=== PATIENT | male | born 1965 | race Caucasian/White ===

== ENCOUNTER → 2024-08-19 11:29 | Outpatient (REF) | payer OTHER, SELFPAY | LOC: PAVMRI 11:29 | PROVIDERS: ATTENDING PHYSICIAN Physician Assistant; FAMILY PHYSICIAN Family Medicine | DX: H90.41 Sensorineural hearing loss, unilateral, right ear, with unrestricted hearing on the contralateral side (principal) | CPT/HCPCS: 70553; A9575 ==

== ENCOUNTER 2025-09-05 22:18 | Inpatient (IN) | payer OTHER, SELFPAY ==
[2025-09-05] VITALS (13 sets, daily range): BP systolic 120–173; BP diastolic 63–118; BMI 35.0
--- NOTE | 2025-09-05 20:02 | ED.GENMED ---
History of Present Illness
General
Chief Complaint: Breathing Problem
Source: patient
Exam Limitations: none
Time Seen by Provider: 09/05/25 19:53
History of Present Illness
History of Present Illness:
See MDM
Past History
Past History
ED Past Medical History: HTN
ED Past Surgical History: Other (Chest tube)
Social History
Tobacco: Former smoker
Alcohol: None
Phy Exam
Physical Exam
Physical Exam:
See MDM
Scores
Heart Failure Risk
Heart Failure Risk Score: Not Applicable
Sepsis
Sepsis Screening
Sepsis Assessment: Sepsis
Sepsis Screening: Worsening O2 Saturation
Sepsis Screen
Sepsis Screen: Sepsis
Date: 09/05/25
Time: 21:25
Course
Orders/Labs/Results
Orders:
Orders
09/05/25 19:55
Complete Blood Count/With Diff Urgent
Comprehensive Metabolic Panel Urgent
NT-proBNP Urgent
Comment: ADDON
Troponin I Urgent
09/05/25 20:00
Add On- LAB Urgent
Tests Added?: BNP
CT Chest PE Study Urgent
Comment:
Reason For Exam: SOB, hypoxic, recent travel
Albuterol Sulfate [Ventolin Nebules] 7.5 mg INH R NOW STA
Dexamethasone Sod Phosphate [Decadron] 10 mg IV NOW STA
Ipratropium Nebs [Atrovent Nebules] 1 mg INH R NOW STA
CR Chest Portable - 1 View Urgent
Comment:
Reason For Exam: SOB, hypoxic
Reason Study Needs to be Portable: Patient Unstable
09/05/25 20:16
Piperacillin/Tazo 3.375 Gram [Zosyn] 3.375 gram in 50 ml IV NOW
09/05/25 20:40
Vancomycin [Vancocin] 2,000 mg 0.9% Sodium Chloride 500 ml [Nss] 500 ml IV NOW
09/05/25 20:45
Lactic Acid Q4H
Comment: CANCEL 2nd LACTIC ACID IF 1st LACTIC ACID IS LESS THAN 2
PTT Urgent
Prothrombin Time Urgent
Comment: PTT
Blood Culture Q30M
GRUPO Source: Blood/Venous
Specimen Description:
Blood Culture Q30M
GRUPO Source: Blood/Venous
Specimen Description:
09/05/25 21:02
Consult Interventional Radiology [IRAD CONSULT] Routine
Consulting Provider: Mika Chaves
Was physician already notified: Yes
Procedure being ordered, including laterality if applicable: Thoracentessis, R side
Acknowledgement that appropriate orders are entered: Yes
Body Fluid Cell Count Routine
What is the Body Fluid: R pleural effusion
Fluid Culture with Gram Stain Routine
GRUPO Source: Thoracentesis Fluid
Specimen Description:
09/05/25 21:24
Heparin 8,800 units IV NOW STA
Pharmacy Request to Place See Dose Instructions PO NOW STA
Discontinue all Active Warfarin orders?: Yes
09/05/25 21:[address] Non Medication Order As Directed
Physician Order: PTT 6 hours after initial start of Heparin infusion
09/05/25 21:30
Heparin INFUSION titrate rate - CONTINUOUS Heparin 27641 Units/250 ml 25,000 units in 250 ml IV PER PROTOCOL
Weight to be used for heparin protocol in kilograms (kg):: 110.2
Protocol:: DVT/PE
PTT Goal Range to be used:: PTT 73 to 111 seconds
Order type:: Initial
INITIAL Infusion Dose (UNITS/KG/hr) & then follow protocol:: 18 units/kg/hr
Infusion Dose in UNITS/hr & then follow protocol (UNITS/hr):: 2,000
INFUSION RATE in mL/hr & then follow protocol (mL/hr):: 20
For DVT/PE algorithm, re-bolus for low PTT?: Yes
PTT less than or equal to 64 seconds:: Re-bolus 80 units/kg (max 10,000units). Increase by 400 units/hr
(+ 4mL/hr)
PTT 64.1 to 72.9 seconds:: Re-bolus 40 units/kg (max 5,000 units). Increase by 200 units/hr
(+ 2mL/hr)
PTT 73 to 111 seconds:: Target Range. No change in rate.
PTT 111.1 to 130.9 seconds:: Decrease rate by 200 units/hr (- 2 mL/hr)
PTT 131 to 199.9 seconds:: HOLD for 1 hr. Then decrease by 300 units/hr (- 3mL/hr)
PTT greater than or equal to 200 seconds:: HOLD for 2 hrs & Notify Provider. Then decrease by 400 units/hr
(- 4mL/hr)
Lab follow-up:: Each change, PTT q6h until 2 consecutive are therapeutic. Then
PTT daily.
09/05/25 22:[address] See Dose Instructions IV DIRECTED
09/06/25 00:30
Lactic Acid Q4H
Comment: CANCEL 2nd LACTIC ACID IF 1st LACTIC ACID IS LESS THAN 2
Abnormal Lab Results
09/05/25 09/05/25
19:55 20:45
WBC 31.3 H 10^3/uL
(4.8-10.8)
Plt Count 481 H 10^3/uL
(130-400)
Abs Immat Gran (auto) 1.2 H 10^3/uL
(0-0.05)
Absolute Neuts (auto) 25.0 H 10^3/uL
(1.4-6.5)
Absolute Monos (auto) 2.8 H 10^3/uL
(0.1-0.6)
Immature Gran % 3.8 H %
(0-0.5)
Neutrophils % 79.8 H %
(42.2-75.2)
Lymphocytes % 7.4 L %
(20.5-51.1)
PT 14.8 H Sec
(11.4-14.6)
Sodium 133 L mmol/L
(135-145)
BUN 45 H mg/dl
(9-20)
Glucose 154 H mg/dl
(70-99)
Alkaline Phosphatase 151 H U/L
(38-126)
Albumin 3.4 L g/dl
(3.5-5.0)
09/05/25 19:55
09/05/25 19:55
Vital Signs
Initial and Last Documented VS:
Initial Vital Signs
Temp Pulse Resp BP Pulse Ox
98.2 F 130 30 155/83 90
09/05/25 19:46 09/05/25 19:46 09/05/25 19:46 09/05/25 19:46 09/05/25 19:46
Last Documented Vital Signs
Temp Pulse Resp BP Pulse Ox
98.2 F 130 23 129/84 93
09/05/25 19:46 09/05/25 21:00 09/05/25 21:00 09/05/25 21:00 09/05/25 21:00
MDM/Problems Addressed
Differential Diagnosis Includes:
Note:
CHIEF COMPLAINT(S)
Shortness of breath.
HISTORY OF PRESENT ILLNESS
The patient is a 60-year-old male with a reported history of pneumonia and prior chest tube placement in 2019, which required a 15-day hospitalization. He was recently treated for bronchitis a couple of weeks ago. The patient flew to [place] and began
experiencing shortness of breath during the flight. Initially, it was manageable, but it progressively worsened with physical activity, such as walking and climbing stairs during the trip. The patient reports audible gurgling sounds in his chest and
increasing difficulty breathing, leading to the use of a wheelchair upon return. There is a prior history of smoking. The patient notes no history of COPD, asthma, blood clots, or heart failure. Recent antibiotic treatment included azithromycin.
The patients oxygen levels are low, necessitating supplemental oxygen. Patient was brought back immediately on 5 L nasal cannula
PAST MEDICAL AND SURGICAL HISTORY
- History of pneumonia.
- Chest tube placement in 2019 for fluid drainage.
SOCIAL DETERMINANTS AFFECTING HEALTH
- Long history of smoking.
PHYSICAL EXAM
General: Mildly uncomfortable with conversational dyspnea
Skin: Warm, dry.
Head: Normocephalic, atraumatic
Neck: Appears supple, trachea midline.
Eyes, Ears, Nose, Mouth, and Throat: Moist mucous membranes
Cardiovascular: No signs of cyanosis
Respiratory: Tachypnea, expiratory wheezes at bases
Abdomen: Non-distended
Musculoskeletal: No deformities
Neurological: No focal neurological deficit observed.
Psychiatric: Cooperative, appropriate mood and affect.
PLAN
- Administer Decadron (dexamethasone) as an anti-inflammatory.
- Initiate breathing treatments.
- Perform a chest x-ray followed by a CT scan to assess lung condition and rule out acute issues such as a pneumothorax or pulmonary embolism.
- Continuously monitor the patient with telemetry.
- Admission for further management due to the inability to maintain adequate oxygen saturation levels and the complexity of the condition.
DIFFERENTIAL DIAGNOSIS
The Differential Diagnosis includes, in no particular order and is not limited to:
- Pneumonia
- Pulmonary embolism
- Bronchitis exacerbation
- Chronic obstructive pulmonary disease (COPD)
- Heart failure
- Pleural effusion
- Pneumothorax
- Asthma
- Interstitial lung disease
- Lung cancer
SUMMARY OF ENCOUNTER
The patient was seen for worsening shortness of breath following a flight and travel to [place]. He has a history of pneumonia and required a chest tube in the past. The patients symptoms have progressively worsened, with audible respiratory sounds
suggesting possible airway obstruction or lung complication. Management included starting corticosteroids and respiratory treatments to reduce inflammation and aid breathing, along with imaging to determine any serious underlying lung issues.
DISPOSITION
Admit for further evaluation and treatment due to sustained low oxygen saturation.
MEDICATION RECONCILIATION
- Administered Dexamethasone (Decadron) for inflammation.
MEDICAL DECISION MAKING
-Complexity of Data Reviewed: Chronic conditions affecting care: History of pneumonia, prior chest tube placement.
-Data:
Category 1
- Chest x-ray ordered and pending interpretation.
Category 2
- Patients spouse and EMS information reviewed on patient condition and history.
-Risk:
Prescription medication was administered. Care significantly affected by Social Determinants of Health: Long history of smoking.
CARE-UPDATE
09/05/25 - 20:17
Chest x-ray indicates fluid and right-sided pneumonia. Patient will start treatment with vancomycin and Zosyn as he was previously on azithromycin. White blood cell count is elevated at 31,000. Plan to obtain blood cultures and lactate levels.
SUMMARY OF ENCOUNTER
The patient presented with worsening shortness of breath following a recent trip. He has a history of pneumonia and required hospital care in the past. During the emergency department visit, the CT scan showed no obvious pulmonary embolism but
indicated loculations and complex fluid in the right lung. Immediate treatment included the initiation of broad-spectrum antibiotics. Due to the findings and the patients hypoxia, the decision was made to admit the patient for further evaluation,
particularly for a large empyema and fluid collection.
DISPOSITION
Admit.
ASSESSMENT
Concern for a large empyema and complex fluid collection in the right lung contributing to hypoxia.
MANAGEMENT OF THE PATIENTS CARE WAS DISCUSSED WITH
Interventional radiology, who will evaluate the patient for thoracentesis the following morning.
INDEPENDENT REVIEW OF LABS AND INTERPRETATION OF TESTS
My independent interpretation of the CT scan reveals no obvious pulmonary embolism but shows loculated complex fluid in the right lung.
MEDICATION RECONCILIATION
Initiation of broad-spectrum antibiotics.
MEDICAL DECISION MAKING
-Complexity of Data Reviewed: Chronic conditions affecting care include a history of pneumonia and prior chest tube placement. The differential diagnosis includes pneumonia, pulmonary embolism, bronchitis exacerbation, chronic obstructive pulmonary
disease (COPD), heart failure, pleural effusion, pneumothorax, asthma, interstitial lung disease, and lung cancer.
-Data:
Category 1: CT scan independently reviewed.
Category 3: Discussion of management with interventional radiology regarding the planned thoracentesis.
-Risk: Prescription medication was prescribed. The patient admitted for further evaluation and management due to respiratory complications and complexity of condition. Care significantly affected by Social Determinants of Health due to the long
history of smoking.
DIAGNOSIS
Empyema, J86.9.
*Pulse Oximetry
SaO2: 91
Nasal Cannula flow liters per minute: 6
Oxygen Mode of Delivery: Room air
Patient hypoxic: yes
*Critical Care Note
Total Time (30-74mins, 75-104mins- exclusive of procedures): 33 min
comment:
The high probability of a clinically significant, sudden or life threatening deterioration of the cardiopulmonary system(s) required my full and direct attention, intervention and personal management. The aggregate critical care time was 33 minutes.
This time is in addition to time spent performing reported procedures but includes the following:
[x] Data Review and interpretation
[x] Patient assessment and monitoring of vital signs
[x] Documentation
[x] Medication orders and management
Update Note
Update Note:
9:25 PM admitting hospitalist at bedside. This time, official CT report is back which is highly suspicious of pulmonary embolism. Patient placed on heparin drip
ED Attending Note
-
Portions of this chart may have been created with voice recognition software.� Occasional wrong word or��sound alike� substitutions may have occurred due to the inherent limitations of voice recognition software.
Discharge Plan
Departure
Patient Disposition: Admit
Date of Disposition: 09/05/25
Time of Disposition: 21:01
Admit to: IMU
Presentation/result/management discussed w/ accepting MD/DO: Hospitalist
Discharge Problem:
Empyema, Hypoxia, Pulmonary embolism
Prescriptions:
No Action
cetirizine 10 MG tablet
10 mg PO BID
lisinopril 10 MG tablet
10 mg PO DAILY
sertraline 25 MG tablet
25 mg PO DAILY
fluticasone propionate 1 SPRAY spray,suspension
1 spray intranasal BID
pantoprazole 40 MG tablet,delayed release (DR/EC)
40 mg PO BID Qty: 60 0RF
atorvastatin 20 mg Tablet
20 mg PO DAILY
Referrals:
Matilde Rivera DO [Family Provider, Family Practice]
Interventions
Interventions:
*Risk Screen - Suicide Last Done: 09/05/25 19:55
*General Assessment Last Done: 09/05/25 19:46
*Neglect/Abuse Screening Last Done: 09/05/25 19:55
*ED COVID-19 Vaccine History Last Done: 09/05/25 19:53
*ED Influenza Vaccine History Last Done: 09/05/25 19:53
[facility] Fall Risk Assessment Tool Last Done: 09/05/25 20:11
ED- Cardiac Assessment Last Done: 09/05/25 19:57
ED- Pulmonary Assessment Last Done: 09/05/25 19:57
Discharge Date and Time
Print Language: INDONESIAN
[2025-09-05] MEDS: VENTOLIN NEBULES 7.5 MG INH (20:03)
[2025-09-05] MEDS: ATROVENT NEBULES 1 MG INH (20:03)
[2025-09-05] MEDS: DECADRON 10 MG IV (20:04)
[2025-09-05 20:10] LABS: Hematocrit 41.1 % (39.0-52.0); Hemoglobin 14.0 g/dL (13.0-18.0); Mean Corp Hgb Conc. 34.1 g/dL (33.0-37.0); Mean Corpuscular Volume 80.1 fL (80.0-94.0); Red Cell Dist. Width 14.5 % (11.5-14.5)
[2025-09-05 20:22] LABS: ALT (SGPT) 31 U/L (0-50); AST (SGOT) 36 U/L (17-59); Albumin 3.4 g/dl (3.5-5.0); Alkaline Phosphatase 151 U/L (38-126); Blood Urea Nitrogen 45 mg/dl (9-20); Calcium 8.6 mg/dl (8.4-10.2); Carbon Dioxide 23 mmol/L (22-30); Chloride 101 mmol/L (98-107); Glucose 154 mg/dl (70-99); Potassium 4.4 mmol/L (3.5-5.1); Sodium 133 mmol/L (135-145); Total Protein 6.6 g/dl (6.3-8.2); eGFR > 60.00
[2025-09-05 20:28] LABS: Nucleated Red Blood Cells % 0 % (-); Platelet Count 481 10^3/uL (130-400); Troponin I < 0.012 ng/ml
[2025-09-05] MEDS: VANCOCIN 540 MG IV (20:50)
[2025-09-05] MEDS: ZOSYN 50 IV (20:52)
[2025-09-05 21:01] LABS: INR 1.15; PT 14.8 Sec (11.4-14.6)
[2025-09-05 21:02] LABS: APTT 30.8 Sec (23.4-35.0)
--- NOTE | 2025-09-05 21:04 | HPS.HSE ---
Addendum entered and electronically signed by Yosef Marinelli MD 09/05/25 21:52:
60 male history of empyema requiring tPA dornase chest 2 secondary to Streptococcus mitis, GERD, peptic ulcer disease, hypertension, hyperlipidemia who presented for worsening ongoing shortness of breath over the last 5 days. Initially started on a
plane journey to [place]. Progressively got worse called his outpatient or assistant Dr. Niño recommended to get on the first flight back and present directly to the hospital. He admits to right sided chest discomfort shortness of breath,
shortness of breath with exertion so bad that he required wheelchair use not relieved by anything. Has a cough unable to clear mucus though. Had chills diaphoretic without documented fever.
Empyema history with Streptococcus mitis. Required 15-day hospitalization in 2019. At that time was discharged home on levofloxacin
Acute hypoxemic respiratory failure secondary to likely right lobe empyema along with left lung pulmonary embolism
IV antibiotics with Vanco (mrsa coverage) and Zosyn (anaerobic coverage)
Infectious disease consult
Thoracentesis
IR
Fluid analysis with culture and cytology
IV heparin gtt
2d echo
Analgesics - low dose to prevent resp drive impairment
Mucolytics
Ipratrop nebs, will avoid albuterol nebs for now due to tachycardia
Acute PE - Difficult to tell if this is Provoked vs Unprovoked
Hep gtt + protocol
2d echo
Pulmonary consult
Tachycardia
Related to acute hypoxia and Acute PE
Monitor on tele
HTN
Will hold as normotensive
Likely has a preload dependent due to PE and Right lung compressive changes from Empyema
PUD hx while having TPA Dornase instilled in chest tube, developed acute hemorrhagic shock seconday to acute blood loss anemia
Start BID IV PPI
As started on hep gtt and may need TPA dornase if determined to be empyemia/thick nondraining fluid.
Original Note:
Family Physician
-
Family Physician: Matilde Rivera
Chief Complaint
-
sob
History of Present Illness
60-year-old male with a reported history of pneumonia, GERD,BPH, HTN, HLD and prior chest tube placement in 2019 presented to us with sob which progressively got worse with activity for 4 days. The patient flew to [place] and began experiencing
shortness of breath during the flight. Initially, it was manageable, but it progressively worsened with physical activity, such as walking and climbing stairs during the trip. patient was even having trouble speaking due to sob. patient complained
of cough with thick mucous, but at times he can't bring it up due to the pain. he complains of right sided chest pain. The patient reports audible gurgling sounds in his chest. denied fever, chills. he was diaphoretic. denied MENA, dizzy or
syncope.denied chest pain. denied abdominal pain,n,v,d. denied dysuria or hematuria.
CT concerning for Moderate to large right pleural effusion with multiple loculations. Given the patient's clinical history, findings raise concern for empyema.Confluent areas of parenchymal opacity within the right lung, most suggestive of
compressive atelectasis given the morphologic appearance. However, underlying pneumonia is also possible.Findings considered highly suspicious for pulmonary embolism involving the left lower lobe pulmonary artery, as described above. Most proximal
branching point is the left lower lobe lobar pulmonary artery.No convincing evidence for right-sided pulmonary embolism.No significant left pleural effusion.Fatty infiltration the liver.
Patient initiated on heparin drip, Vanco Zosyn . IR consulted for thoracentesis in the morning
Medical History
Past Medical History
Past Medical History: Reports Other
Additional Past Medical History:
Pneumonia, emphyema, anxiety, asthma, HTN, Iyer;s esophagus, hld,
Past Surgical History: Reports Other
Additional Past Surgical History:
esophagus ablation
Social History
Tobacco: Former Smoker
Alcohol: Occasional
Drug: None
Personal:
Living: With Family
Family History
Family History: Not pertinent
Allergies / Home Medications
Allergies reflects when Allergies were last updated in [facility].
Home Medications with original date entered in [facility]
Allergy/Medication List:
Allergies
Allergy/AdvReac Type Severity Reaction Status Date / Time
No Known Allergies Allergy Verified 09/05/25 19:46
Home Medications
cetirizine 10 mg tablet 10 mg PO BID Allergies 07/31/20
fluticasone propionate 50 mcg/actuation nasal spray,suspension 1 spray intranasal BID Allergies 07/31/20
lisinopril 10 mg tablet 10 mg PO DAILY Blood pressure 07/31/20
sertraline 25 mg tablet 25 mg PO DAILY Depression 07/31/20
pantoprazole 40 mg tablet,delayed release 40 mg PO BID #60 tabs 08/15/20
atorvastatin 20 mg tablet 20 mg PO DAILY 06/22/23
Review of Systems
-
Constitutional: Reports No Symptoms
EENT: Reports No Symptoms
Respiratory: Reports Cough and Trouble Breathing
Cardiac: Reports Chest Pain and Diaphoresis
Abdomen/GI: Reports No Symptoms
: Reports No Symptoms
Musculoskeletal: Reports No Symptoms
Skin: Reports No Symptoms
Neurological: Reports No Symptoms
Endocrine: Reports No Symptoms
Hematologic/Lymphatic: Reports No Symptoms
Psych: Reports No Symptoms
Physical Exam
Vital Signs
Vital Signs
Temp Pulse Resp BP Pulse Ox
98.2 F 131 19 155/118 91
09/05/25 19:46 09/05/25 20:00 09/05/25 20:00 09/05/25 20:00 09/05/25 20:04
Physical Exam
General: Well Developed, Well Nourished and No Apparent Distress
HEENT: NormoCephalic, Moist mucous membranes and Atraumatic
Respiratory: Clear
Cardiac: S1/S2 and Regular Rhythm; No Murmur or Rub
GI: Soft, Non Tender, Non Distended and Normal Bowel Sounds; No Organomegaly
Rectal: Deferred by Provider
Musculoskeletal: No Clubbing, No Cyanosis and No Edema
Skin: No Rash
Neuro: AO x 3 and Nonfocal/grossly intact
Psych: Calm
Laboratory Results
-
09/05/25 19:55
09/05/25 19:55
Laboratory Results
PT Cancelled 09/05/25 19:55
INR Cancelled 09/05/25 19:55
APTT Cancelled 09/05/25 19:55
Lactic Acid 1.9 mmol/L (0.7-2.0) 09/05/25 20:45
Total Bilirubin 0.8 mg/dl (0.2-1.3) 09/05/25 19:55
AST 36 U/L (17-59) 09/05/25 19:55
ALT 31 U/L (0-50) 09/05/25 19:55
Alkaline Phosphatase 151 U/L (38-126) H 09/05/25 19:55
Troponin I < 0.012 ng/ml 09/05/25 19:55
Data Reviewed
-
Diagnostic Radiology: Report Reviewed by me
CT Scan: Report Reviewed by me
Lab Data: Labs Reviewed by me
Impression/Plan
-
#acute hypoxic respiratory failure concern for large empyema and complex fluid collection in the right lung/large pleural effusion
-IR consulted for thoracentesis
-continue supplemental oxygen to keep sat>95, wean as tolerated
-nebs prn for sob/wheezing
-vanco and Zosyn continued
- ID and pulmonary consulted
# Pulmonary embolism
- IV heparin
-ECHO, duplex
# GERD
#hxt of PUD
- IV PPI continue
#Essential hypertension, BP stable
#Anxiety
Continue sertraline
# BPH
-Flomax continue
#HLD
-statin
#heparin
#Code status: The patient is a full code.
[2025-09-05] MEDS: HEPARIN 8800 UNITS IV (21:46)
[2025-09-05] MEDS: HEPARIN 25000 UNITS/250 ML IV (21:46)
[2025-09-05 23:05] LABS: Glucose - Point of Care 198 mg/dl (70-99)
[2025-09-05] MEDS: PROTONIX IV 40 MG IV (23:09)
[2025-09-05] MEDS: NSS (PRESERVATIVE FREE) 10 ML IV (23:09)
[2025-09-05] MEDS: MUCINEX 1200 MG PO (23:09)
[2025-09-05] MEDS: DILAUDID 0.5 MG IV (23:16)
--- NOTE | 2025-09-05 23:44 | PTCARENOTE ---
Received pt from PROCESS ENGINEERING MANAGER. Pt pulled over from the stretcher to our bed. Pt is AAOx3, R side [place]IE. Sinus tach on the monitor. Pt on 5L NC O2 sat 92%, lungs coarse, slight wheeze, breathing treatment provided in ED, tachypneic/BACA, non-productive occ
cough. Urinal at bedside. Pt c/o 5/10 right sided lung/back/side pain, ICU BIOLOGY LABORATORY ASSISTANT notified Dilaudid given (see MAR). Pt states Dilaudid helped with his pain and is able to take deep breaths. Heparin gtt at 2000 units (see worklist). CHG bath provided.
Call bhat in reach. Safe environment maintained.
[2025-09-06] VITALS (31 sets, daily range): BP systolic 91–164; BP diastolic 81–111; BMI 35.1
--- NOTE | 2025-09-06 00:56 | PHA.VAN.IN ---
Addendum entered and electronically signed by Krystin Soto RPH 09/06/25 12:07:
Continue present dosing - BUN elevated but trending down
Original Note:
Assessment
- Assessment
Renal Function: Appears similar to baseline
Concomitant Antimicrobials: Piperacillin/Tazobactam
- Previous Dosing Experience
Previous Regimen: 1750 mg Q12H
Date of Regimen: 08/08/2020
Provided Trough of: 11.0
Patient's SCR is: Elevated compared to previous dosing experience
AUC Dosing Plan
- Empiric Dosing
Initial / Loading Dose: 2000 mg @ 2049
Maintenance Regimen: 1500 mg IV Q12H
Estimated AUC (mcg*h/mL): 483
Estimated Peak (mcg*h/mL): 30.3
Estimated Trough (mcg/ml): 12.3
Estimated Half Life (H): 8.1
- Monitoring
No levels ordered at this time: levels to be ordered upon follow-up
MRSA Screen: Ordered per protocol
Pharmacokinetics Vancomycin I
- -
Patient Age: 60
Patient Sex: Male
Vancomycin Day #: 1
Indication: Pulmonary/Respiratory
Requesting Provider: Uday VENTURA
Height / Weight:
Height 5 ft 10 in
Actual Weight 110.7 kg
- Vital Signs / Lab Results
Temp Pulse Resp BP Pulse Ox
97.6 F 111 17 136/85 92
09/05/25 23:48 09/05/25 23:30 09/05/25 23:30 09/05/25 22:54 09/05/25 23:39
Lab Results - Hematology
09/05/25
19:55
WBC 31.3 H
Lab Results - Chemistry
09/05/25
19:55
BUN 45 H
Creatinine 1.0
Albumin 3.4 L
09/05/25
20:45
Lactic Acid 1.9
[2025-09-06] MEDS: ZOSYN 50 IV ×2 (02:51→08:11)
[2025-09-06] MEDS: DILAUDID 0.5 MG IV ×3 (03:13→22:51)
--- NOTE | 2025-09-06 03:17 | PTCARENOTE ---
Systems reviewed, no new changes in assessment. AM labs provided. Pt c/o right sided pain, PRN Dilaudid given (see MAR). Call bhat in reach. Safe environment maintained.
[2025-09-06 03:22] LABS: APTT 49.9 Sec (23.4-35.0)
[2025-09-06 03:37] LABS: Blood Urea Nitrogen 37 mg/dl (9-20); Calcium 8.2 mg/dl (8.4-10.2); Carbon Dioxide 25 mmol/L (22-30); Chloride 104 mmol/L (98-107); Estimated Creatinine Clearance > 125 ml/min; Glucose 164 mg/dl (70-99); LDH 320 U/L (120-246); Magnesium 2.6 mg/dl (1.6-2.3); Potassium 5.3 mmol/L (3.5-5.1); Sodium 135 mmol/L (135-145); Total Protein 6.1 g/dl (6.3-8.2); eGFR > 60.00
[2025-09-06] MEDS: HEPARIN 8800 UNITS IV ×2 (03:43→21:43)
[2025-09-06] MEDS: VANCOCIN 530 MG IV ×2 (05:05→18:39)
[2025-09-06] MEDS: NSS 1000 IV (05:05)
[2025-09-06] MEDS: ZOLOFT 25 MG PO (08:11)
[2025-09-06] MEDS: MUCINEX 1200 MG PO ×2 (08:11→20:35)
[2025-09-06] MEDS: PROTONIX IV 40 MG IV ×2 (08:11→20:35)
[2025-09-06] MEDS: LIPITOR 20 MG PO (08:11)
[2025-09-06] MEDS: NSS (PRESERVATIVE FREE) 10 ML IV ×2 (08:12→20:35)
--- NOTE | 2025-09-06 08:28 | CON.INTV ---
Consultation
Consultation Request
Date/Time Consultation Requested: 09/05/20252144
Date/Time Consultation Performed: 09/06/2025826
Requesting Provider: LORENZO Cheema
Performing Provider: Dr. Lemons
Reason for Consultation: Empyema/acute PE/Hypoxia
Medical History
-
Chief Complaint: SOB
History of Present Illness:
60-year-old male former tobacco smoker with a past medical history of left-sided pneumonia complicated by empyema requiring chest tube (July 2020), hypertension, hyperlipidemia, Iyer's esophagus and anxiety who presents with SOB. Patient
flew to [place] and began developing worsening SOB during the flight. This eventually worsened to the point where he cannot exert himself without feeling significant shortness of breath. He also had some cough/URI symptoms that started several days
prior to the symptoms developing. He then got a flight back here and then came to the ER for evaluation. Initially in the ER he was afebrile with pulse rate 130, respiratory rate 24�30, BP 155/83 and he was saturating 90% on room air, which only
marginally increased to 91-93% on 6 L/min. Labs showed significant leukocytosis to 31.3, platelet count 481, sodium 133, BUN 45, glucose 154, troponin negative at <0.012, and proBNP 339; blood cultures were collected. CTA chest showed moderate to
large right-sided pleural effusion with multiple loculations with confluent parenchymal opacities within the right lung likely compressive atelectasis however underlying pneumonia also possible. Also a suspicious pulmonary embolism involving a left
lower lobe pulmonary artery. In the ER he was given antibiotics with Vanco/Zosyn, also given albuterol, ipratropium, Decadron and started on heparin drip. Patient required 5 L/min nasal cannula, and was admitted to the ICU for further care with
hair baler service consulted for additional management/recommendations.
Of note, patient follows with us in the [facility] office with Dr. Trinidad (last visit 10/08/2023). He has a history of mild intermittent asthma and was told to consider restarting Flovent if his symptoms worsen. Also history of recurrent pneumonia with
bilateral pneumonia diagnosed in March 2023 with a 4 cm right upper lobe airspace opacity. He also has a history of a left-sided empyema in July 2020, requiring a chest tube here at where 340 cc of cloudy serosanguineous fluid was removed
initially. At that time, he was hospitalized from 07/31 - 08/15/2020 with diagnoses including pneumonia with sepsis, empyema and acute hypoxic respiratory failure.
PMHx: Hypertension, hyperlipidemia, Iyer's esophagus, anxiety, former tobacco smoker, history of left-sided pneumonia with empyema s/p chest tube (July 2020 - pleural fluid Cx grew Streptococcus mitis at the time)
PSHx: Ablation of esophagus
Past Medical History
Past Medical History: Other (Above as per HPI)
Past Surgical History: Other (Above as per HPI)
Social History
Tobacco: Former Smoker
Alcohol: Occasional
Drug: None
Personal:
Living: With Family
Family History
Family History: Reviewed & Not Pertinent
Allergies / Home Medications
Allergies
Allergy/AdvReac Type Severity Reaction Status Date / Time
No Known Allergies Allergy Verified 09/05/25 19:46
Home Medications
�Medication �Instructions �Recorded �Confirmed �Last Taken �Type
cetirizine 10 mg tablet 10 mg PO BID Allergies 07/31/20 09/05/25 06/21/23 17:00 History
lisinopril 10 mg tablet 10 mg PO DAILY Blood pressure 07/31/20 09/05/25 06/21/23 08:00 History
sertraline 25 mg tablet 25 mg PO DAILY Depression 07/31/20 09/05/25 06/21/23 08:00 History
pantoprazole 40 mg tablet,delayed 40 mg PO BID #60 tabs 08/15/20 09/05/25 06/21/23 17:00 Rx
release
atorvastatin 20 mg tablet 20 mg PO DAILY 06/22/23 09/05/25 06/21/23 08:00 History
Review of Systems
-
History Source: Patient
All other systems: Negative unless noted
Vitals / Labs / Diagnostic Testing
Vital Signs
Temp Pulse Resp BP Pulse Ox
97.9 F 102 21 140/103 91
09/06/25 07:23 09/06/25 09:00 09/06/25 09:00 09/06/25 09:00 09/06/25 09:00
Lab Data
09/05/25 22:46
09/06/25 09:33
Laboratory Results
09/05/25 09/05/25 09/06/25
19:55 20:45 03:02
PT Cancelled 14.8 H
INR Cancelled 1.15
APTT Cancelled 30.8 49.9 H
09/06/25
09:40
PT
INR
APTT Cancelled
Diagnostic Testing:
Physical Exam
-
HEENT: Normocephalic and Anicteric
Cardiovascular: S1/S2, Peripheral Edema (negative) and Other (Tachycardic)
Respiratory: Wheeze (negative), Rales (Bibasilar), Rhonchi (negative) and Other (Diminished breath sounds on right hemithorax)
GI: Soft, Non Distended, Non Tender and Normal Bowel Sounds
Neurology: AO x 3 and Tremors (negative)
Skin: Warm and Dry
General: Respiratory Distress (negative), Comfortable, Fever (negative) and Chills (negative)
Assessment
-
Assessment: 60-year-old male former tobacco smoker with a past medical history of left-sided pneumonia complicated by empyema requiring chest tube (July 2020), hypertension, hyperlipidemia, Iyer's esophagus and anxiety who presents with SOB.
Patient flew to [place] and began developing worsening SOB during the flight. This eventually worsened to the point where he cannot exert himself without feeling significant shortness of breath. He also had some cough/URI symptoms that started
several days prior to the symptoms developing. He then got a flight back here and then came to the ER for evaluation. Initially in the ER he was afebrile with pulse rate 130, respiratory rate 24�30, BP 155/83 and he was saturating 90% on room air,
which only marginally increased to 91-93% on 6 L/min. Labs showed significant leukocytosis to 31.3, platelet count 481, sodium 133, BUN 45, glucose 154, troponin negative at <0.012, and proBNP 339; blood cultures were collected. CTA chest showed
moderate to large right-sided pleural effusion with multiple loculations with confluent parenchymal opacities within the right lung likely compressive atelectasis however underlying pneumonia also possible. Also a suspicious pulmonary embolism
involving a left lower lobe pulmonary artery. In the ER he was given antibiotics with Vanco/Zosyn, also given albuterol, ipratropium, Decadron and started on heparin drip. Patient required 5 L/min nasal cannula, and was admitted to the ICU for
further care with hair baler service consulted for additional management/recommendations.
Chronic conditions [employer]: Hypertension, hyperlipidemia, Iyer's esophagus, anxiety, former tobacco smoker, history of left-sided pneumonia with empyema s/p chest tube (July 2020 - pleural fluid Cx grew Streptococcus mitis at the time)
Impression:
#Multiloculated collections due to empyema with suspected right sided pneumonia
#Acute respiratory failure with hypoxia due to above in setting acute PE
#Submassive pulmonary artery involving left lower lobe without evidence of RV strain (PESI score - class III - -> 3.2 - 7.1% 30 day mortality)
#Small hiatal hernia
#Former tobacco smoker (no evidence of COPD per PFTs, with FEV1/FVC 80 (105% predicted) via PFT from April 2023)
#History of hypertension/hyperlipidemia
#History of PAD salpinx
#History of left-sided pneumonia with empyema s/p chest tube (July 2020 - pleural fluid Cx grew Streptococcus mitis at the time)
Plan:
- IR consulted and patient is awaiting chest tube insertion today
- Send pleural fluid studies including cell count with differential, glucose, LDH, protein, fluid cultures for bacterial, fungus and AFB, and cytology
- ID consulted; considering that he has had an empyema approximately 5 years ago, immunoglobulins are being checked
- Continue with antibiotics, currently on Zosyn + vancomycin
- Follow-up blood cultures; MRSA swab negative, hence can likely stop IV vancomycin (defer this to ID); follow up pleural fluid cultures as well once they are drawn
- Mucolytics
- prn nebulized bronchodilators - not currently bronchospastic
- Once chest tube has been inserted, I requested that IR instill tPA and dornase to help break up the multiple loculations seen on CTA chest
- Repeat CXR tomorrow with plan for eventual repeat CT chest in few days to assess for improvement
- Trend WBC and monitor temperature curve
- Repeat BMP later today given the [K] level was slightly elevated this AM to 5.3
- Continue with heparin drip for his PE
- Follow-up lower extremity duplex
- Check echo to assess RV size/function + PA pressures
- Eventual outpatient hematology evaluation for hypercoag workup and to assess duration of AC needed
- Maintain SpO2 >90-94% using supplemental O2, titrating down dose as tolerated
- Aspiration precautions
- Maintain MAP>65
- Replete electrolytes with K>4, Mg>2
- Maintain euglycemia with goal BG 140-180
- Trend H/H and transfuse if needed to keep Hb>7g/dL; keep plt>20k, unless there is concern for bleeding then keep plt>50k
- Incentive spirometer encouraged 10x per hour for at least 4 hrs a day
- DVT ppx: heparin gtt
Patient is stable for downgrade out of ICU to IMU. Pulmonary service will continue to follow along. Once patient is discharged, we will arrange for follow-up again with Dr. Trinidad (last visit 10/08/2023)
Data:
CTA Chest 09/05/2025:
Moderate to large right pleural effusion with multiple loculations. Given the patient's clinical history, findings raise concern for empyema.
Confluent areas of parenchymal opacity within the right lung, most suggestive of compressive atelectasis given the morphologic appearance. However, underlying pneumonia is also possible.
Findings considered highly suspicious for pulmonary embolism involving the left lower lobe pulmonary artery, as described above. Most proximal branching point is the left lower lobe lobar pulmonary artery.
No convincing evidence for right-sided pulmonary embolism.
No significant left pleural effusion.
Fatty infiltration the liver.
Total time spent today was 83 minutes for this encounter. Time includes reviewing laboratory test/imaging results, reviewing pertinent medical records, obtaining and reviewing medical history, performing an appropriate exam, ordering medications,
tests and procedures. Time also includes documentation of this encounter, coordinating patient care and communicating with other healthcare professionals. Total time does not include separately billed tests performed on this date of service.
--- NOTE | 2025-09-06 08:28 | W.PN.HOSP.TC ---
Today's Communication/Plan
-
see PN
Assessment / Plan
Assessment / Plan
60yo M with PMHx of anxiety, HTN, HLD, atopic d/o, Hx of L empyema, MARGARET mass s/p bronch and biopsy in 2022 neg for malignant cells came after developing worsening SOB and excessive sputum while travelin to [place]. Had recently diagnozed with
bronchitis and treated with oral Abx as per his PCP. Found moderate loculated R pleural effusion and leukocytosis concerning for pneumonia with empyema and pulmonary embolism
A/P:
#Acute hypoxic respiratory failure (tachypnea, hyopoxia 2/2 sepsis (leujkocytosis, hypoxia, R pleural effusion) due to Pneumonia, CAP with R sided effusion
concern for empyema
Bcx NTD
Vanco/Zosyn
Pulm consult
IRAD for chest tube, labs to be ordered - added culture
ID consult
Sputum Cx, legionella and s.pneumonia urinary Ag
Wean off O2
#L acute provoked pulmonary embolism
most likely 2/2 long flight
no signs of RH srain on CT
HEparin and eventual DOAC for 3-6mo and outpatient hem w/u for hypercoagulability - patient verbalized understanding of the instrcutions
Echo
LE US
#Fatty liver
low fat diet
cont statin
#Hyperkalemia
Follow BMP, hold ACEi
#Elevated alk.phos
no overt RUQ abd pain
follow LFT
check GGT
#Essential HTN
#GERD
#HLD
#Atopic D/O
cont home meds except of above
DVT ppx hep drip
FUll code
I have spent at least 60min of critical care time reviewing chart, test results, communication with consultants and providing direct patient care
Anticipated Discharge: > 48 hours
Subjective/Interval History
-
Date of Service: September 06, 2025
Objective Data
-
Labs:
Laboratory Results
09/05/25 09/05/25 09/05/25
19:55 20:45 22:46
Hct Cancelled
Plt Count 481 H
PT 14.8 H
INR 1.15
APTT 30.8
Sodium
Potassium
Chloride
Carbon Dioxide
BUN
Creatinine
Glucose
Calcium
09/06/25 09/06/25 09/06/25
03:02 08:26 09:40
Hct
Plt Count
PT
INR
APTT 49.9 H Pending
Sodium 135 Pending
Potassium 5.3 H Pending
Chloride 104 Pending
Carbon Dioxide 25 Pending
BUN 37 H Pending
Creatinine 0.8 Pending
Glucose 164 H Pending
Calcium 8.2 L Pending
Vital Signs:
Vital Signs
Temp Pulse Resp BP Pulse Ox
97.9 F 94 12 158/90 93
09/06/25 07:23 09/06/25 07:00 09/06/25 07:00 09/06/25 07:00 09/06/25 07:00
I&O
09/05/25 09/06/25 09/07/25
06:59 06:59 06:59
Intake Total 605 / 605
Output Total 350 / 350
Balance 255 / 255
Review of Systems
-
History Source: Patient
All other systems: Reviewed and negative
Respiratory: Reports Trouble Breathing
Physical Exam
-
General: No Apparent Distress
HEENT: Normocephalic
Respiratory: Decreased Breath Sounds (b/l)
Cardiac: Regular Rhythm
GI: Soft, Nontender and Nondistended
Musculoskeletal: No Clubbing, No Cyanosis and No Edema
Skin: Warm
Neuro: Awake, Alert, Oriented and AO x 3
Psych: Calm
--- NOTE | 2025-09-06 09:00 | PTCARENOTE ---
Rec'd pt at 0730 resting in bed. Initially sleeping but awakens easily to verbal stimuli and is alert and oriented. Speech is clear. Denies dizzness or headache. BRIZUELA- able to BRIZUELA but does get very easily winded/BACA with any activity even some
minimal activity as just sitting up in bed. Admits to R chest intermittent discomfort - R ant and lat chest especially with movement/exertion or deep breaths. Denies pain/discomfort on the L side. Skin is pink wm and dry. Respirs- Rec'd pt on 5L nc.
At rest sats are 91-93% however with exertion (just sitting himself up in the bed) , got easily winded and sats dipped to 88%- did recover to 91%. BS with exertion can hear some audible wheezing. BS in general are decreased throughout on the R and
mostly at the base on the L Coarse at the R base. Coughs an occasional non-prod cough- with coughing gets winded as well. Monitor STach- NSR. + pulses. Tr LE edema. VS as documented. Abd is round and soft with + BS. Currently NPO for IR procedure
today. Rec'd pt on Heparin gtt at 2400 units/hr via LAC IV Site. Heparin placed on hold at 0840 per IR. Voiding yellow urine in the urinal. IV fluids NS infusing at 50 ml/hr via R AC IV site. Pt able to reposition himself. Did own oral care. Plan of
care reviewed and call bhat in reach.
--- NOTE | 2025-09-06 09:18 | CON.ID ---
Consultation
-
Date/Time Consultation Requested: 09/05/25 22:46
Date/Time Consultation Performed: 09/06/25 9:18
Requesting Provider: Uday PRADO
Performing Provider: Dr Novak
Reason for Consultation: empyema
Chief Complaint / Past History
Chief Complaint
increased dyspnea
History of Present Illness
Mr King is a 60 year old male with history of left sided empyema due to S mitis 07/2020 requiring treatment with chest tubes, unasyn/levofloxacin for a 4 week course, pathology consistent with empyema, with follow up CT with resolution he has
been well in the interim. Then about two weeks ago he developed productive cough, no fevers or chills, saw his PCP was prescribed a zpac and a steroid taper 60 mg x3 days, 40 mg x3 days, 20 mg x3 days. He initially felt better. Then 5 days ago he
boarded a flight to [place] he developed progressive shortness of breath, dyspnea on exertion, nonproductive cough, pleurtic chest pain, chills and sweats without documented fever. Initially the dyspnea was mild but it progressed making using stairs
or event speaking difficult. Dyspnea progressed to the point that he was requiring the use of a wheelchair. Denied headache, dizziness, syncope, chest pain, abdominal pain, nausea, vomiting, diarrhea, dysuria. [place] and went
straight to the ER here for evaluation.
Note that he followed up with pulmonary Dr Trinidad for several yeasts, recurrent pneumonia/bronchitis was on the differential as was the possibility of waxing and waning infiltrates (sarcoid, ABPA) though no diagnosis was formally made.
Since arrival here he has been afebrile, bp overall stable, RR initially in the mid 20s now intermittently in the teens requiring 5L NC, wbc 31, hgb 14, plt 481, L shift is noted, na 133, cr 1.0, lactic acid 1.9, LDH 320, CT chest PE study: moderate
to large R pleural effusion with loculations, parenchymal opacity most likely pneumonia vs atelectasis, PE left lower lobe pulmonary artery, no significant L sided pleural effusion. MRSA PCR is pending, blood cultures x2 are in progress, Patient
started on vancomycin and zosyn.
Past History
Additional Past Medical History:
Pneumonia, emphyema, anxiety, asthma, HTN, Iyer;s esophagus, hld,
Additional Past Surgical History:
esophagus ablation
Allergy History:
No Known Allergies Allergy (Verified 09/05/25 19:46)
Medications Reviewed: Yes
Social History
Tobacco: Former Smoker
Alcohol: None (former etoh abuse, reports he is fully abstinant)
Drug: None
Personal:
Living: Other (has a dog no other pets or birds)
Family History
Family History: Not Pertinent
Review of Systems
Review of Systems
Constitutional: Reports chills
EENT: Reports No Symptoms
Respiratory: Reports Cough and dyspnea
Cardiac: Reports Chest Pain and Diaphoresis
Abdomen/GI: Reports No Symptoms
: Reports No Symptoms
Musculoskeletal: Reports No Symptoms
Skin: Reports No Symptoms
Neurological: Reports No Symptoms
Endocrine: Reports No Symptoms
Hematologic/Lymphatic: Reports No Symptoms
Psych: Reports No Symptoms
Vital Signs
Temp Pulse Resp BP Pulse Ox
97.9 F 94 12 158/90 93
09/06/25 07:23 09/06/25 07:00 09/06/25 07:00 09/06/25 07:00 09/06/25 07:00
Physical Exam
Physical Exam
Constitutional: No Acute Distress
Cardiovascular: Regular Rate and S1/S2; Negative Murmur or Rub
Pulmonary: Clear and Non Labored; Negative Symmetric (decreased air entry at the right base), Wheezes, Rales or Rhonchi
Gastrointestinal: Soft, Non Tender, Non Distended and Normal Bowel Sounds
Skin: Warm and Dry; Negative Rash or Jaundice
Lab / Diagnostic Study Results
09/05/25 22:46
Abs Immat Gran (auto) 1.2 10^3/uL (0-0.05) H 09/05/25 19:55
Absolute Neuts (auto) 25.0 10^3/uL (1.4-6.5) H 09/05/25 19:55
Absolute Lymphs (auto) 2.3 10^3/uL (1.2-3.4) 09/05/25 19:55
Absolute Monos (auto) 2.8 10^3/uL (0.1-0.6) H 09/05/25 19:55
Absolute Basos (auto) 0.0 10^3/uL (0-0.2) 09/05/25 19:55
Immature Gran % 3.8 % (0-0.5) H 09/05/25 19:55
Neutrophils % 79.8 % (42.2-75.2) H 09/05/25 19:55
Lymphocytes % 7.4 % (20.5-51.1) L 09/05/25 19:55
Monocytes % 8.8 % (1.7-9.3) 09/05/25 19:55
Eosinophils % 0.1 % (0-6) 09/05/25 19:55
Basophils % 0.1 % (0-2) 09/05/25 19:55
PT 14.8 Sec (11.4-14.6) H 09/05/25 20:45
INR 1.15 09/05/25 20:45
Lactic Acid 1.9 mmol/L (0.7-2.0) 09/05/25 20:45
Microbiology Results
Micro:
09/05/25 20:45 Blood Culture - Pending
Blood/Venous
09/06/25 03:05 Nasal Screen MRSA (PCR) - Pending
Nose
09/05/25 20:45 Blood Culture - Pending
Blood/Venous
Assessment / Plan
Suspected right sided empyema
H/o L sided empyema 07/2020 - resolved on follow up imaging
PE
- unusual to see two separate empyemas in one patient, check IgG, IgM, IgA levels & swallow evaluation; high dose steroid course may have contributed
- a1c in the am
- blood cultures x2 are in progress
- sputum culture if able to produce one
- IR and pulmonary are consulted for management of the effusion
- thoracentesis for cell count, culture, glucose, LDH, protein, pH, amylase, triglycerides, afb and fungus
- legionella and s pneumo urine antigens sent
- start unasyn continue vancomycin pending pleural effusion evaluation given recent bronchitis, stop zosyn
- follow clinically
--- NOTE | 2025-09-06 09:36 | PTCARENOTE ---
Resting. Labs sent as ordered
[2025-09-06 10:04] LABS: Blood Urea Nitrogen 33 mg/dl (9-20); Calcium 7.9 mg/dl (8.4-10.2); Carbon Dioxide 26 mmol/L (22-30); Chloride 104 mmol/L (98-107); Estimated Creatinine Clearance > 125 ml/min; Glucose 143 mg/dl (70-99); Potassium 5.6 mmol/L (3.5-5.1); Sodium 134 mmol/L (135-145); eGFR > 60.00
--- NOTE | 2025-09-06 11:00 | PTCARENOTE ---
US of LE completed. in to see pt. No changes. Voided and urine studies sent as ordered
[2025-09-06 11:03] LABS: GGTP 39 U/L (15-73)
--- NOTE | 2025-09-06 11:13 | CM ---
Chart reviewed and spoke with Kolby patient and his at ICU bedside
He is scheduled for thoracentesis at IR today
Lives with in [address] [facility] [address] [facility]
Independent with ADLs and ambulation
no DME
PCP Matilde Rivera
[facility] on [address]
no hx of VN nor SNF
DCP is to go home with no needs but would evaluate when closer to dc
can drive him
CM will continue to follow up for dcp needs
--- NOTE | 2025-09-06 12:45 | PTCARENOTE ---
Taken via bed to IR on 5L nc. Report given to IR staff. Assessment is otherwise unchanged. Spoke with IR and will give Lokelma once pt returns from IR as he will be getting sedation and is NPO
--- NOTE | 2025-09-06 14:55 | W.PN.UPDATE ---
Update Note
Progress Note Update
- US/fluoro guided placement of 16F pigtail catheter into R pleural space with immediate evacuation of green/purulent fluid
- Over 1L of fluid drained following chest tube placement, more than anticipated. Deferred on going ahead with tPA/dornase today bc of the high output. Will order CXR for tomorrow
- Pt tolerated well. Feels better post placement
-
[2025-09-06] MEDS: LOKELMA 10 GRAM PO (15:45)
[2025-09-06] MEDS: HEPARIN 25000 UNITS/250 ML IV (15:48)
[2025-09-06] MEDS: UNASYN IV ×2 (15:49→20:35)
--- NOTE | 2025-09-06 16:00 | PTCARENOTE ---
Returned from IR at 1530 s/p R lateral 16F pigtail chest tube placed- attached to -20 cm suction. No air leak or crepitus noted but per IR pt does have a small intermittent air leak. Drainage is purulent yellowish. Pt overall states he feels much
better and feels his breathing is better. O2 currently on 4l nc and sats are 96%. BS bilat are coarse and decreased with faint end exp wheeze. VS as documented. Dr. Lemons updated and Heparin gtt restarted at 2400 units/hr via L ac IV site. NSS
restarted via RAC at 50 ml/hr. Ampicillin hung. Lokelma 10 gms po given at 1545 per order from earlier. Pt repositioned. Back care given. Call bhat in reach. Denies discomfort currently.
--- NOTE | 2025-09-06 17:30 | PTCARENOTE ---
Good appetite for dinner. Denies nausea. CT draining thick purulent yellow drainage. No other changes in assessement
[2025-09-06] MEDS: FLUSH (NSS) 2 FLUSH IV (18:47)
--- NOTE | 2025-09-06 18:50 | PTCARENOTE ---
Dr. Lemons in to see pt and updated. Vancomycin hung per orders. Pt admitting that although his breathing is better, he does have 6/10 R lat chest discomfort around the chest tube- Medicated with Dilaudid 0.5 mg IV. No other changes. Call bhat in
reach.
--- NOTE | 2025-09-06 19:10 | PTCARENOTE ---
Returned from IR at 1530 s/p R lateral 16F pigtail chest tube placed- attached to -20 cm suction. No air leak or crepitus noted but per IR pt does have a small intermittent air leak. Drainage is purulent yellowish. Pt overall states he feels much
better and feels his breathing is better. O2 currently on 4l nc and sats are 96%. BS bilat are coarse and decreased with faint end exp wheeze. VS as documented. Dr. Lemons updated and Heparin gtt restarted at 2400 units/hr via L ac IV site. NSS
restarted via RAC at 50 ml/hr. Ampicillin hung. Lokelma 10 gms po given per order from earlier. Pt repositioned. Back care given. Call bhat in reach. Denies discomfort currently.
[2025-09-06 19:41] LABS: Body Fluid Second Tech DW
--- NOTE | 2025-09-06 21:08 | PTCARENOTE ---
Received pt from previous RN. Pt is AAOx3, right ear CHEESH-NA. NSR/sinus tach on the monitor. Received pt on 4L NC, O2 weaned to 3L O2 sat 96%, lungs coarse/occasional wheeze/diminished, tachypneic/BACA, non-productive occasional cough. Pt with audible
wheezing, RT notified, PRN neb given (see MAR). Right chest tube in place, dressing c/d/i, no air leak, tidaling or crepitus, pt c/o some discomfortness. IS at bedside, pt up to 1250. Uses the urinal in bed. Heparin gtt maintained (see worklist).
Mouth care and CHG bath provided. Call bhat in reach. Safe environment maintained.
[2025-09-06] MEDS: ATROVENT NEBULES 0.5 MG INH (21:15)
[2025-09-06 21:23] LABS: APTT 41.4 Sec (23.4-35.0)
[2025-09-06 22:26] LABS: Blood Urea Nitrogen 31 mg/dl (9-20); Calcium 8.1 mg/dl (8.4-10.2); Carbon Dioxide 23 mmol/L (22-30); Chloride 104 mmol/L (98-107); Estimated Creatinine Clearance 112 ml/min; Glucose 163 mg/dl (70-99); Potassium 4.7 mmol/L (3.5-5.1); Sodium 131 mmol/L (135-145); eGFR > 60.00
[2025-09-07] VITALS (16 sets, daily range): BP systolic 120–151; BP diastolic 84–106; PULSE 2–100; BMI 35.1
[2025-09-07] MEDS: HEPARIN 25000 UNITS/250 ML IV ×3 (02:36→20:59)
[2025-09-07] MEDS: UNASYN IV ×4 (02:36→19:46)
[2025-09-07] MEDS: DILAUDID 0.5 MG IV ×3 (04:14→19:51)
[2025-09-07 04:29] LABS: APTT 126.4 Sec (23.4-35.0)
[2025-09-07 04:30] LABS: Hematocrit 36.2 % (39.0-52.0); Hemoglobin 12.1 g/dL (13.0-18.0); Mean Corp Hgb Conc. 33.4 g/dL (33.0-37.0); Mean Corpuscular Volume 82.1 fL (80.0-94.0); Platelet Count 373 10^3/uL (130-400); Red Cell Dist. Width 14.7 % (11.5-14.5)
[2025-09-07] MEDS: VANCOCIN 530 MG IV ×2 (05:08→17:00)
[2025-09-07 06:17] LABS: Nucleated Red Blood Cells % 0 % (-)
[2025-09-07 06:21] LABS: ALT (SGPT) 51 U/L (0-50); AST (SGOT) 53 U/L (17-59); Albumin 2.6 g/dl (3.5-5.0); Alkaline Phosphatase 139 U/L (38-126); Blood Urea Nitrogen 29 mg/dl (9-20); Calcium 7.7 mg/dl (8.4-10.2); Carbon Dioxide 23 mmol/L (22-30); Chloride 107 mmol/L (98-107); Estimated Creatinine Clearance > 125 ml/min; Glucose 132 mg/dl (70-99); Magnesium 2.5 mg/dl (1.6-2.3); Potassium 5.0 mmol/L (3.5-5.1); Sodium 134 mmol/L (135-145); Total Protein 5.4 g/dl (6.3-8.2); eGFR > 60.00
[2025-09-07] MEDS: MUCINEX 1200 MG PO ×2 (07:57→19:46)
[2025-09-07] MEDS: PROTONIX IV 40 MG IV ×2 (07:57→19:47)
[2025-09-07] MEDS: LIPITOR 20 MG PO (07:57)
[2025-09-07] MEDS: ZOLOFT 25 MG PO (07:57)
[2025-09-07] MEDS: NSS (PRESERVATIVE FREE) 10 ML IV ×2 (07:57→19:47)
--- NOTE | 2025-09-07 08:32 | PTCARENOTE ---
pt received from previous rn aox4, sr on monitor, 2LNC, pt with some BACA. right chest tube to suction, purulent drainage, site c/d/i. pt denies pain at this time. all safety precautions in place, call bhat within reach.
[2025-09-07 09:44] LABS: Glycohemoglobin (HgbA1c) 6.2 % (4.0-5.9)
--- NOTE | 2025-09-07 09:59 | CM ---
S/P thoracentesis at IR yesterday.
Pt on 2 liters oxygen Pox 94%.
Heparin gtt.
Maintained IV steroids..
Currently on IV antibiotics. BC pending.
PLAN Will continue to assess and assist with dc planning.
Watch for oxygen needs
--- NOTE | 2025-09-07 10:03 | W.PN.ID1 ---
Date of Service
Date of Service: September 07, 2025
Today's Communication
Continue antibiotics. Await further cultures.
Assessment / Plan
Right sided empyema
H/o L sided empyema 07/2020 - resolved on follow up imaging
PE
Leukocytosis; improved
Recommendations:
- unusual to see two separate empyemas in one patient, checking IgG, IgM, IgA levels & swallow evaluation; high dose steroid course may have contributed
-HbA1c not especially elevated.
- blood cultures x2 are in progress
- sputum culture if able to produce one
- Pleural fluid cultures pending.
- legionella and s pneumo urine antigens negative.
- Continue unasyn;l continue vancomycin pending pleural effusion evaluation given recent bronchitis
- Follow Vanco levels closely to prevent nephrotoxicity
- follow clinically
Further recommendations as additional data is returned.
����������������������������������������������������������
Chief Complaint
-: Other (Right empyema)
Subjective / Review of Systems
Patient seen and examined. Chart reviewed. Right chest tube placed yesterday with recovery of 1 L of purulent drainage. Ongoing additional liter overnight. Patient reports feeling overall much better.
Review of Systems: No Fever and No Chills
Vital Signs / Physical Exam
Vital Signs
Vital Signs
Temp Pulse Resp BP Pulse Ox
98.3 F 91 14 151/93 94
09/07/25 08:38 09/07/25 08:00 09/07/25 08:00 09/07/25 08:00 09/07/25 08:00
Physical Exam
Constitutional: No Acute Distress, Comfortable and Non-toxic
Eyes: Sclera Anicteric
Cardiovascular: S1/S2; Negative S3/S4
Pulmonary: Clear and Other (Decreased breath sounds right side.); Negative Wheezes or Rhonchi
Gastrointestinal: Soft and Non Tender
Genito-Urinary: Negative Chua
Musculoskeletal: Negative Joint Swelling
Neurological: Awake and Alert
Psychological: Calm
Objective Data
Lab Data
Lab Results
09/07/25 04:06
09/07/25 05:13
PT 14.8 Sec (11.4-14.6) H 09/05/25 20:45
INR 1.15 09/05/25 20:45
APTT 126.4 Sec (23.4-35.0) H 09/07/25 04:06
Estimated Creat Clear > 125 ml/min 09/07/25 05:13
Lactic Acid 1.9 mmol/L (0.7-2.0) 09/05/25 20:45
Total Bilirubin 0.5 mg/dl (0.2-1.3) 09/07/25 05:13
GGT 39 U/L (15-73) 09/06/25 09:33
AST 53 U/L (17-59) 09/07/25 05:13
ALT 51 U/L (0-50) H 09/07/25 05:13
Alkaline Phosphatase 139 U/L (38-126) H 09/07/25 05:13
Most recent labs reviewed.
Micro Results:
09/05/25 20:45 Blood Culture - Preliminary
Blood/Venous No Growth in 24 hours- Final report to follow
09/05/25 20:45 Blood Culture - Preliminary
Blood/Venous No Growth in 24 hours- Final report to follow
09/06/25 14:24 Body Fluid Culture - Pending
Thoracentesis Fluid Gram Stain - Preliminary
09/06/25 14:24 Acid Fast Bacilli Smear - Pending
Pleural Fluid Acid Fast Bacilli Culture - Pending
09/06/25 14:24 Fungal Smear - Pending
Pleural Fluid Fungal Culture - Pending
09/06/25 10:33 Legionella Urinary Antigen - Final
Urine Negative for Legionella pneumophila Serogroup 1 antigen.
A negative result does not rule out the possiblity of
Legionella infection due to other serogroups or species of
Legionella. Clinical correlation is recommended.
Streptococcus pneumoniae Antigen (M - Final
Negative for Streptococcus pneumoniae antigen.
A negative result does not exclude infection with
Streptococcus pneumoniae. Clinical correlation is
recommended.
09/06/25 03:05 Nasal Screen MRSA (PCR) - Final
Nose MRSA not detected - performed by PCR methodology.
Imaging:
09/05/2025 CT chest PE study: moderate to large right pleural effusion with multiple loculations concerning for empyema. Confluent areas of parenchymal opacity within the right lung, most suggestive of compressive atelectasis. Please see full
dictation for additional detail.
CT Scan: Image Reviewed and Report Reviewed
--- NOTE | 2025-09-07 10:08 | W.PN.INTV ---
Today's Communication / Plan
Recommendations
Continue vancomycin and Unasyn, ID following
Trend BMP
Monitor chest tube output
Assessment
-
Assessment:
A 60 year old male with a PMH of prior left sided empyema (2019), hypertension, hyperlipidemia, GERD and anxiety who started having significant shortness of breath upon exertion which worsened with any activity during a trip to [facility]. Patient
contacted Dr. Trinidad who advised him to return back to the [place] given prior history of empyema. Upon arrival to the ED, patient was found to be afebrile with tachycardia (HR 130), tachypnea (RR 24-30) and leukocytosis (WBC 31.3), O2 90% on room air
which only improved to 90-93% with 6 L O2 supplementation. Trops negative. CTA chest showed moderate to large right-sided pleural effusion with multiple loculations with confluent parenchymal opacities within the right lung likely compressive
atelectasis however underlying pneumonia also possible. Also a suspicious pulmonary embolism involving a left lower lobe pulmonary artery. Patient was stared on Zosyn and Vancomycin in the ED, and given albuterol, ipratropium, Decadron and started
on heparin drip for the pulmonary embolism. Patient was subsequently admitted to the ICU, however after drainage/chest tube placement on 09/06/25, was deemed stable for downgrade to IMU.
CTA Chest 09/05/2025:
Moderate to large right pleural effusion with multiple loculations. Given the patient's clinical history, findings raise concern for empyema.
Confluent areas of parenchymal opacity within the right lung, most suggestive of compressive atelectasis given the morphologic appearance. However, underlying pneumonia is also possible.
Findings considered highly suspicious for pulmonary embolism involving the left lower lobe pulmonary artery, as described above. Most proximal branching point is the left lower lobe lobar pulmonary artery.
No convincing evidence for right-sided pulmonary embolism.
No significant left pleural effusion.
Fatty infiltration the liver.
Echo 09/06/25:
1. Normal biventricular size and systolic function without regional wall motion abnormality.
2. No significant valve disease.
3. Dilated aortic root (sinus of Valsalva 4.4 cm).
4. No prior study available for comparison.
Plan:
# Right-sided empyema -severe/loculated -improving post chest tube placement
#History of left-sided pneumonia with empyema s/p chest tube (July 2020 - pleural fluid Cx grew Streptococcus mitis at the time)
# Acute respiratory failure with hypoxia in the setting of acute PE, former smoker
# Submassive pulmonary artery involving left lower lobe without evidence of RV strain
Drainage >1L with marked improvement on imaging. Pleural studies strongly consistent with empyema with pH 6.5, WBC count 248,000, low glucose, high LDH.
WBC count trending down: 31.3 --> 23.5
Continue vancomycin and Unasyn per ID recommendations.
Legionella and strep pneumo negative. MRSA swab negative.
Sputum culture if able to produce sputum.
Intrapleural tPA/DNase initially not given due to extensive amount of drainage.
Follow pleural fluid cultures/smears/acid-fast bacilli culture
Chest tube output today 1200 cc. Monitor chest tube output closely.
Serial CXRs to monitor improvement.
Continue heparin drip. Transition to DOAC for 3 to 6 months once stable. Outpatient hematology follow-up recommended-patient showed understanding of this plan.
US LE negative.
Echo as above.
Continue mucolytics, PRN nebulized bronchodilators.
Plan CT chest in a few days to reassess for improvement. Chest x-ray today showed improvement of effusion/empyema.
Incentive spirometer encouraged 10x per hour for at least 4 hrs a day
Patient to arrange follow-up with Dr. Trinidad outpatient after discharge-last visit 10/08/2023
# Recurrent empyema -evaluation for immunodeficiency
Infectious disease noted recurrence on opposite side is unusual.
IgG mildly low at 640-unclear significance. No IVIG indicated at this time
# Hyponatremia - improved
Na improved from 131-134 today
Monitor BMP.
Ensure adequate hydration.
Replete electrolytes as needed
BUN trending down 31 --> 29
# Hypertension
# Hyperlipidemia
# GERD
# Depression
Chronic medical conditions, stable.
Continue home medications as clinically appropriate
DVT ppx: heparin gtt
CODE STATUS: Full code
Subjective Dataa
Subjective Data
Date of Service:
Date of Service: September 07, 2025
Chief Complaint: Pulmonary Follow Up
Subjective:
Upon evaluation of patient this morning, he states he feels much improved. Patient had a right-sided chest tube placed on 09/06/2025 which draine>1 L of purulent fluid. Patient reports improved breathing today. ID was consulted and switched Zosyn
to Unasyn. Chest x-ray showed improvement in right-sided pleural effusion/empyema.
Review of Systems
Cardiopulmonary: Dyspnea (slight, but improved)
Objective Data
Data Reviewed
Vital Signs / I&O / Oxygen:
Vital Signs
Temp Pulse Resp BP Pulse Ox
98.3 F 91 14 151/93 94
09/07/25 08:38 09/07/25 08:00 09/07/25 08:00 09/07/25 08:00 09/07/25 08:00
Intake and Output
09/06/25 09/07/25 09/08/25
06:59 06:59 06:59
Intake Total 605 / 679 3850 / 3876 152 / 152
Output Total 350 / 350 3720 / 3720 350 / 350
Balance 255 / 329 130 / 156 -198 / -198
SaO2 94
Nasal Cannula flow liters per 2
minute
Physical Exam
General: Comfortable
HEENT: Normocephalic, Anicteric and Moist Mucous Membranes
Cardiovascular: S1-S2 and Regular Rhythm
Respiratory: Chest Tube (Right side) and Other (Decreased breath sounds on the right side)
GI: Soft, Non Distended, Non Tender and Normal Bowel Sounds
Neurology: Awake and AO x 3
Skin: Warm
Labs/Micro/Reports
Lab Data
09/07/25 04:06
09/07/25 05:13
Laboratory Results
09/06/25 09/07/25
21:04 04:06
APTT 41.4 H 126.4 H
Microbiology
09/05/25 20:45 Blood/Venous Blood Culture - Preliminary
No Growth in 24 hours- Final report to follow
09/05/25 20:45 Blood/Venous Blood Culture - Preliminary
No Growth in 24 hours- Final report to follow
09/06/25 14:24 Thoracentesis Fluid Gram Stain - Preliminary
09/06/25 10:33 Urine Legionella Urinary Antigen - Final
Negative for Legionella pneumophila Serogroup 1 antigen.
A negative result does not rule out the possiblity of
Legionella infection due to other serogroups or species of
Legionella. Clinical correlation is recommended.
09/06/25 10:33 Urine Streptococcus pneumoniae Antigen (M - Final
Negative for Streptococcus pneumoniae antigen.
A negative result does not exclude infection with
Streptococcus pneumoniae. Clinical correlation is
recommended.
09/06/25 03:05 Nose Nasal Screen MRSA (PCR) - Final
MRSA not detected - performed by PCR methodology.
--- NOTE | 2025-09-07 10:28 | W.PN.HOSP.TC ---
Today's Communication/Plan
-
cont ABx
cont heparin drip, plamn for DOAC in AM
Assessment / Plan
Assessment / Plan
60yo M with PMHx of anxiety, HTN, HLD, atopic d/o, Hx of L empyema, MARGARET mass s/p bronch and biopsy in 2022 neg for malignant cells came after developing worsening SOB and excessive sputum while travelin to [place]. Had recently diagnozed with
bronchitis and treated with oral Abx as per his PCP. Found moderate loculated R pleural effusion and leukocytosis concerning for pneumonia with empyema and pulmonary embolism
A/P:
#Acute hypoxic respiratory failure (tachypnea, hyopoxia 2/2 sepsis (leujkocytosis, hypoxia, R pleural effusion) due to Pneumonia, CAP with R sided empyema
Pleural fluid with singh purulence, cont chest tube, tPa and repositioning due to loculation as per pulm
Cx with GPC and GNR follow ID
Bcx NTD
Vanco/Zosyn
Pulm consult
IRAD for chest tube, labs to be ordered - added culture
ID consult
Sputum Cx,
legionella and s.pneumonia urinary Ag neg
Wean off O2
Igg minimally decreased, which is not specific, outpatient print finisher advised
#L acute provoked pulmonary embolism
most likely 2/2 long flight
no signs of RH srain on CT
HEparin and eventual DOAC for 3-6mo and outpatient hem w/u for hypercoagulability - patient verbalized understanding of the instrcutions
Echo
LE US
#Fatty liver
low fat diet
cont statin
#Hyperkalemia
Follow BMP, hold ACEi
#Elevated alk.phos
no overt RUQ abd pain
follow LFT
check GGT
#Essential HTN
#GERD
#HLD
#Atopic D/O
cont home meds except of above
#PReDM
#Obesity
#Metabolic syndrome
Low fat diet
BMI 35.1
low carb diet advised
loose weight
DVT ppx hep drip
FUll code
I have spent at least 51min reviewing chart, test results, communication with consultants and providing direct patient care
Anticipated Discharge: > 48 hours
Subjective/Interval History
-
Date of Service: September 07, 2025
Objective Data
-
Labs:
Laboratory Results
09/07/25 09/07/25 09/07/25
04:06 05:13 10:30
WBC 23.5 H
Hgb 12.1 L
Hct 36.2 L
Plt Count 373 D
APTT 126.4 H Pending
Sodium Cancelled 134 L
Potassium Cancelled 5.0
Chloride Cancelled 107
Carbon Dioxide Cancelled 23
BUN Cancelled 29 H
Creatinine Cancelled 0.7
Glucose Cancelled 132 H
Calcium Cancelled 7.7 L
Total Bilirubin Cancelled 0.5
AST Cancelled 53
ALT Cancelled 51 H
Alkaline Phosphatase Cancelled 139 H
Vital Signs:
Vital Signs
Temp Pulse Resp BP Pulse Ox
98.3 F 91 14 151/93 94
09/07/25 08:38 09/07/25 08:00 09/07/25 08:00 09/07/25 08:00 09/07/25 08:00
I&O
09/06/25 09/07/25 09/08/25
06:59 06:59 06:59
Intake Total 605 / 679 3850 / 3876 152 / 152
Output Total 350 / 350 3720 / 3720 350 / 350
Balance 255 / 329 130 / 156 -198 / -198
Review of Systems
-
History Source: Patient
All other systems: Reviewed and negative
Physical Exam
-
General: Comfortable
HEENT: Normocephalic
Respiratory: Clear to Auscultation and Chest Tubes
GI: Soft, Nontender and Nondistended
Neuro: Awake, Alert, Oriented and AO x 3
Psych: Calm
[2025-09-07 11:07] LABS: APTT 64.8 Sec (23.4-35.0)
--- NOTE | 2025-09-07 11:08 | PTOTSP ---
Speech Therapy Evaluation:
Pt with acute on chronic risk factors of dysphagia given various pulmonary comorbidities including hx/current empyema requiring chest tube placement, pulmonary embolism, and hx of PNAs. Despite PNA hx, pt denied any dysphagia hx, SYSTEM VALIDATION ENGINEER services, or
aspiration concerns. Oropharyngeal swallow appeared functional at bedside without overt s/sx of aspiration.
Recommend:
1. Cont. regular solids and thin liquids
2. Meds as tolerated
3. Strict aspiration and reflux precautions
4. SYSTEM VALIDATION ENGINEER to follow to monitor tolerance of diet and determine if pt would benefit from instrumental assessment
[2025-09-07] MEDS: HEPARIN 4400 UNITS IV (11:36)
--- NOTE | 2025-09-07 13:24 | PHA.VAN.FU ---
Vancomycin Assessment / Plan
- Assessment
Renal Function: Stable
WBC's are: Trending Down
In the past 24 hrs, patient has been: Afebrile
Concomitant Antimicrobials: ampicillin/sulbactam
- Dosing Plan
Continue: Vanc 1500mg Q12H
- Monitoring Plan
No level(s) ordered at this time: consider levels in next few days
- Follow Up
Pharmacy will continue to follow.
Vancomycin Follow UP
- -
Patient Age: 60
Patient Sex: Male
Vancomycin Day #: 2
Indication: Pulmonary/Respiratory
Requesting Provider: Uday VENTURA
Pertinent Antimicrobial Allergies:
NKDA
Height / Weight:
Height 5 ft 10 in
Actual Weight 110.9 kg
Pertinent Past Medical History: BMI ~35
- Vital Signs / Lab Results
Temp Pulse Resp BP Pulse Ox
98.4 F 94 23 149/98 95
09/07/25 11:00 09/07/25 10:00 09/07/25 10:00 09/07/25 10:00 09/07/25 10:00
Lab Results - Hematology
09/05/25 09/07/25
19:55 04:06
WBC 31.3 H 23.5 H
Lab Results - Chemistry
09/05/25 09/06/25 09/06/25
19:55 03:02 09:33
BUN 45 H 37 H 33 H
Creatinine 1.0 0.8 0.8
Estimated Creat Clear > 125 > 125
Albumin 3.4 L
09/06/25 09/06/25 09/07/25
21:04 21:55 04:06
BUN Cancelled 31 H Cancelled
Creatinine Cancelled 0.9 Cancelled
Estimated Creat Clear Cancelled 112 Cancelled
Albumin Cancelled
09/07/25
05:13
BUN 29 H
Creatinine 0.7
Estimated Creat Clear > 125
Albumin 2.6 L
09/05/25
20:45
Lactic Acid 1.9
Microbiology Results
09/06/25 14:24 Body Fluid Culture - Preliminary
Thoracentesis Fluid Viridans Streptococcus Group
Gram Stain - Preliminary
09/05/25 20:45 Blood Culture - Preliminary
Blood/Venous No Growth in 24 hours- Final report to follow
09/05/25 20:45 Blood Culture - Preliminary
Blood/Venous No Growth in 24 hours- Final report to follow
09/06/25 10:33 Legionella Urinary Antigen - Final
Urine Negative for Legionella pneumophila Serogroup 1 antigen.
A negative result does not rule out the possiblity of
Legionella infection due to other serogroups or species of
Legionella. Clinical correlation is recommended.
Streptococcus pneumoniae Antigen (M - Final
Negative for Streptococcus pneumoniae antigen.
A negative result does not exclude infection with
Streptococcus pneumoniae. Clinical correlation is
recommended.
09/06/25 03:05 Nasal Screen MRSA (PCR) - Final
Nose MRSA not detected - performed by PCR methodology.
[2025-09-07] MEDS: CATHFLO/ACTIVASE 50 MG INTRAPLEUR (13:36)
[2025-09-07] MEDS: CATHFLO/ACTIVASE 50 ML INTRAPLEUR (13:36)
[2025-09-07] MEDS: PULMOZYME 50 MG INTRAPLEUR (13:37)
[2025-09-07] MEDS: PULMOZYME 50 ML INTRAPLEUR (13:37)
[2025-09-07] MEDS: NSS 25 ML INTRAPLEUR (13:38)
--- NOTE | 2025-09-07 13:40 | W.SUR.POST ---
Surgical Immediate Post Op
Note
Date of Procedure: 09/07/2025
Instillation: #1 of planned 6
Medications used: 10 mg alteplase, 5 mg dornase
Operative Findings: After verbal consent obtained, patient was positioned into recumbent position so that I could access the right-sided chest tube. Chest tube was clamped, and sterile technique was employed including: hand washing, sterile
gloves, mask and gown. Chest tube tubing was disconnected so that I could access opening, and a three-way stopcock was attached for easy instillation of medications into the chest tube. Normal saline 0.9% was flushed into chest tube without
resistance. 10mg of tPA and 5mg of dornase were instilled without incident, and flushed with 10cc of NS 0.9% after each instillation. Alcohol wipes were used to wipe down the catheter tips and the 3-way stop cock site before and after each
instillation to maximize sterility. Chest tube 3-way stop cock was then turned to off position towards the patient, and is to remain off suction for 90-120 minutes, at which point the chest tube 3-way stop cock should be opened up to allow flow
towards Pleur-evac and Pleur-evac should be placed back onto suction at -[id number] (unless specified otherwise by provider). Patient tolerated procedure without any immediate complications, and I answered all of his questions.
[2025-09-07] MEDS: DILAUDID 1 MG IV (16:02)
--- NOTE | 2025-09-07 16:27 | PTCARENOTE ---
Dr. Lemons placed tpa in pts chest tube, dwelled for 2 hours per order. pt with increasing severe pain, with 450cc output, increase in wheezing,Dr. Lemons aware. see nov. pt now on 4LNC, pain improved.
[2025-09-07] MEDS: SUBLIMAZE 25 MCG IV (16:55)
[2025-09-07] MEDS: ATROVENT NEBULES 0.5 MG INH (17:06)
--- NOTE | 2025-09-07 17:10 | PTCARENOTE ---
Addendum entered by Alee Brito RN 09/07/25 18:49:
pt placed on bipap by rt per Dr. Lmeons. Dr. Lemons took chest tube off suction, on water seal at this time.
Original Note:
pt continued with increased wob, Dr. Lemons updated, rt at bedside for neb, see mar for all meds. pt on 6LNC. pt to stay in icu.
[2025-09-07 17:21] LABS: APTT 87.2 Sec (23.4-35.0)
--- NOTE | 2025-09-07 18:00 | PTCARENOTE ---
Dr. Lemons aware of increased wob, neb given by rt, increased to 6LNC to NRB. Dr Lemons placed chest tube off suction. rt placed pt on bipap 12/5 10L per md order.
[2025-09-07] MEDS: SUBLIMAZE 50 MCG IV ×2 (18:54→23:16)
--- NOTE | 2025-09-07 19:30 | PTCARENOTE ---
Received pt chest tube off suction. Dr Lemons states to place pt back on suction, -20. Pt placed back on suction at -20, no air leak, tidaling or crepitus.
[2025-09-07] MEDS: PULMOZYME INTRAPLEUR ×2 (19:39)
[2025-09-07] MEDS: CATHFLO/ACTIVASE INTRAPLEUR ×2 (19:39)
[2025-09-07] MEDS: NSS INTRAPLEUR (19:39)
--- NOTE | 2025-09-07 20:05 | PTCARENOTE ---
Pt wanting to come off bipap, bipap removed pt placed on 10L midflow, O2 sat 92%, pt tachypneic. Pt c/o 8/ pain at the chest tube site, PRN Dilaudid given (see MAR). Heparin gtt maintained (see worklist). Call bhat in reach. Safe environment
maintained.
[2025-09-07 23:43] LABS: APTT 89.4 Sec (23.4-35.0)
[2025-09-08] VITALS (26 sets, daily range): BP systolic 124–150; BP diastolic 68–108; BMI 34.7
--- NOTE | 2025-09-08 00:21 | PTCARENOTE ---
Systems reviewed, no new changes in assessment. Call bhat in reach. Safe environment maintained.
[2025-09-08] MEDS: UNASYN IV ×4 (01:42→20:02)
[2025-09-08] MEDS: DILAUDID 0.5 MG IV ×3 (03:39→19:50)
[2025-09-08 04:11] LABS: Hematocrit 39.7 % (39.0-52.0); Hemoglobin 13.3 g/dL (13.0-18.0); Mean Corp Hgb Conc. 33.5 g/dL (33.0-37.0); Mean Corpuscular Volume 82.0 fL (80.0-94.0); Platelet Count 400 10^3/uL (130-400); Red Cell Dist. Width 14.7 % (11.5-14.5)
[2025-09-08 04:17] LABS: APTT 90.5 Sec (23.4-35.0)
[2025-09-08 04:27] LABS: ALT (SGPT) 51 U/L (0-50); AST (SGOT) 34 U/L (17-59); Albumin 2.6 g/dl (3.5-5.0); Alkaline Phosphatase 116 U/L (38-126); Blood Urea Nitrogen 24 mg/dl (9-20); Calcium 7.9 mg/dl (8.4-10.2); Carbon Dioxide 25 mmol/L (22-30); Chloride 104 mmol/L (98-107); Estimated Creatinine Clearance > 125 ml/min; Glucose 110 mg/dl (70-99); Potassium 5.1 mmol/L (3.5-5.1); Sodium 132 mmol/L (135-145); Total Protein 5.2 g/dl (6.3-8.2); eGFR > 60.00
--- NOTE | 2025-09-08 04:39 | PTCARENOTE ---
Systems reviewed, no new changes in assessment. AM labs provided. Call bhat in reach. Safe environment maintained.
[2025-09-08] MEDS: VANCOCIN 530 MG IV (05:16)
[2025-09-08 05:59] LABS: Absolute Neutrophils -Man Diff 20.8 10^3/uL (1.4-6.5); Normal RBC Morphology Yes; Platelets Checked Yes
[2025-09-08] MEDS: HEPARIN 25000 UNITS/250 ML IV (06:39)
[2025-09-08] MEDS: MUCINEX 1200 MG PO ×2 (07:46→19:49)
[2025-09-08] MEDS: NSS (PRESERVATIVE FREE) 10 ML IV (07:46)
[2025-09-08] MEDS: PROTONIX IV 40 MG IV (07:46)
[2025-09-08] MEDS: ZOLOFT 25 MG PO (07:46)
[2025-09-08] MEDS: LIPITOR 20 MG PO (07:46)
--- NOTE | 2025-09-08 08:45 | PTCARENOTE ---
Rec'd pt at 0730- initally dozing. Awakens easily to verbal stimuli and is alert and oriented. Overall states he feels better than he did last evening and was able to get some rest. Admits to some R chest/chest tube discomfort and a sore throat but
currently does not want anything for pain. Informed pt to just ask if he changes his mind. BRIZUELA. Skin is pink wm and dry. Respirs are shallow. Overall non-labored. Does get BACA and have increased soreness with moving. Rec'd pt on 8l midflow with sats
of 96% and currently on 6l midflow with sats of 94-95%. R lat chest tube to -20 cm suction. No air leak or crepitus noted. Draining purulent bloody drainage. Breath sounds- initally did not hear any wheezing but after turning/movement - pt with end
exp wheezing. BS are decreased throughout but mostly on the R with coarse BS at the R 1/3 up. Occasional non-prod cough. Getting about 800-1000 ml on IS. Monitor ST-SR. VS as documented. + pulses. Tr LE edema. Denies chest pain. VS as documented.
Abd is soft with + BS. Denies nausea. Voiding yellow urine in the urinal. Rec'd pt with Heparin gtt infusing at 2800 units/hr via L hand IV site. Dr. Pope in and order given to DC. Heparin gtt dc'd at 0810 and will start Lovenox at 1000. Capped
int intact LAC. RAC with abx infusing. Sites wnl. Turned and repositioned. Pt did own oral care. Complete CHG bath given. Turned and repositioned. Will get oob after breakfast. Plan of care reviewed and call bhat in reach.
--- NOTE | 2025-09-08 09:04 | W.PN.INTV ---
Today's Communication / Plan
Recommendations
Continue Unasyn, discontinue vancomycin per ID
Second dose of tPA/DNase today with IV Dilaudid/lidocaine for pain control
Tessalon Perles for productive cough
Monitor chest tube output
Assessment
-
Assessment:
A 60 year old male with a PMH of prior left sided empyema (2019), hypertension, hyperlipidemia, GERD and anxiety who started having significant shortness of breath upon exertion which worsened with any activity during a trip to [facility]. Patient
contacted Dr. Trinidad who advised him to return back to the [place] given prior history of empyema. Upon arrival to the ED, patient was found to be afebrile with tachycardia (HR 130), tachypnea (RR 24-30) and leukocytosis (WBC 31.3), O2 90% on room air
which only improved to 90-93% with 6 L O2 supplementation. Trops negative. CTA chest showed moderate to large right-sided pleural effusion with multiple loculations with confluent parenchymal opacities within the right lung likely compressive
atelectasis however underlying pneumonia also possible. Also a suspicious pulmonary embolism involving a left lower lobe pulmonary artery. Patient was stared on Zosyn and Vancomycin in the ED, and given albuterol, ipratropium, Decadron and started
on heparin drip for the pulmonary embolism. Patient was subsequently admitted to the ICU, however after drainage/chest tube placement on 09/06/25, was deemed stable for downgrade to IMU.
CTA Chest 09/05/2025:
Moderate to large right pleural effusion with multiple loculations. Given the patient's clinical history, findings raise concern for empyema.
Confluent areas of parenchymal opacity within the right lung, most suggestive of compressive atelectasis given the morphologic appearance. However, underlying pneumonia is also possible.
Findings considered highly suspicious for pulmonary embolism involving the left lower lobe pulmonary artery, as described above. Most proximal branching point is the left lower lobe lobar pulmonary artery.
No convincing evidence for right-sided pulmonary embolism.
No significant left pleural effusion.
Fatty infiltration the liver.
Echo 09/06/25:
1. Normal biventricular size and systolic function without regional wall motion abnormality.
2. No significant valve disease.
3. Dilated aortic root (sinus of Valsalva 4.4 cm).
4. No prior study available for comparison.
Plan:
# Right-sided empyema -severe/loculated -improving post chest tube placement
# History of left-sided pneumonia with empyema s/p chest tube (July 2020 - pleural fluid Cx grew Streptococcus mitis at the time)
# Acute respiratory failure with hypoxia in the setting of acute PE, former smoker
# Submassive pulmonary artery involving left lower lobe without evidence of RV strain
Drainage >1L with marked improvement on imaging. Pleural studies strongly consistent with empyema with pH 6.5, WBC count 248,000, low glucose, high LDH.
WBC trend: 31.3 --> 23.5 --> 28.6
Intrapleural tPA/DNase given 09/07/25. Placed on BiPAP due to dyspnea after the procedure and upgraded from IMU to ICU.
Plan to give second dose of tPA/DNase today 09/07/2025 with IV Dilaudid provide before procedure. Can consider including lidocaine for additional pain control as it is not contraindicated/does not interfere with therapy.
Continue Unasyn per ID recommendations. Vancomycin discontinued.
Legionella and strep pneumo negative. MRSA swab negative.
Sputum culture if able to produce sputum.
Pleural fluid culture growing strep viridans. Pleural fluid culture from July 2020 grew Streptococcus mitis.
Monitor chest tube output closely- 6569-5624 cc of bloody drainage today 09/07/25.
Initially placed on heparin drip. Likely transition to DOAC today 09/08/2025-defer to primary team. Outpatient hematology follow-up recommended-patient showed understanding of this plan.
US LE negative.
Echo as above.
Continue mucolytics, PRN nebulized bronchodilators. Tessalon Perles for productive cough.
Plan CT chest in a few days to reassess for improvement. CXR today 09/08/25 shows small residual pleural effusion without significant change compared to most recent study yesterday.
Incentive spirometer encouraged 10x per hour for at least 4 hrs a day.
Patient to arrange follow-up with Dr. Trinidad outpatient after discharge-last visit 10/08/2023
# Recurrent empyema -evaluation for immunodeficiency
Infectious disease noted recurrence on opposite side is unusual.
IgG mildly low at 640.
IgG subclass testing pending.
# Hyponatremia - improved
Na improved from 131-134 today
Monitor BMP.
Ensure adequate hydration.
Replete electrolytes as needed
BUN trending down 31 --> 29 --> 24
# Hypertension
# Hyperlipidemia
# GERD
# Depression
Chronic medical conditions, stable.
Continue home medications as clinically appropriate
DVT ppx: heparin gtt
CODE STATUS: Full code
Subjective Dataa
Subjective Data
Date of Service:
Date of Service: September 08, 2025
Chief Complaint: Pulmonary Follow Up
Subjective:
Patient received 10 mg tPA and 5 mg dornase yesterday to break up loculations after which he experienced chest pain and shortness of breath. Patient was upgraded to ICU from IMU and placed on BiPAP. He states he feels better this morning;
shortness of breath has improved. No new complaints.
Review of Systems
Cardiopulmonary: Dyspnea
Objective Data
Data Reviewed
Vital Signs / I&O / Oxygen:
Vital Signs
Temp Pulse Resp BP Pulse Ox
98.1 F 101 23 144/108 95
09/08/25 08:00 09/08/25 08:00 09/08/25 08:00 09/08/25 08:00 09/08/25 08:25
Intake and Output
09/07/25 09/08/25 09/09/25
06:59 06:59 06:59
Intake Total 3850 / 3876 2396 / 2424 156 / 156
Output Total 3720 / 3720 3430 / 3430 200 / 200
Balance 130 / 156 -1034 / -1006 -44 / -44
SaO2 95
Nasal Cannula flow liters per 8
minute
Physical Exam
General: Comfortable
HEENT: Normocephalic, Anicteric and Moist Mucous Membranes
Cardiovascular: S1-S2 and Regular Rhythm
Respiratory: Chest Tube (Right side: With bloody drainage) and Other (Decreased breath sounds on the right side)
GI: Soft, Non Distended, Non Tender and Normal Bowel Sounds
Neurology: Awake and AO x 3
Skin: Warm and Good Color
Labs/Micro/Reports
Lab Data
09/08/25 03:42
09/08/25 03:42
Laboratory Results
09/07/25 09/07/25 09/07/25
10:38 16:56 23:24
APTT 64.8 H 87.2 H 89.4 H
09/08/25
03:42
APTT 90.5 H
Microbiology
09/05/25 20:45 Blood/Venous Blood Culture - Preliminary
No Growth in 48 hours- Final report to follow
09/05/25 20:45 Blood/Venous Blood Culture - Preliminary
No Growth in 48 hours- Final report to follow
09/06/25 14:24 Thoracentesis Fluid Body Fluid Culture - Preliminary
Viridans Streptococcus Group
09/06/25 14:24 Thoracentesis Fluid Gram Stain - Preliminary
09/06/25 10:33 Urine Legionella Urinary Antigen - Final
Negative for Legionella pneumophila Serogroup 1 antigen.
A negative result does not rule out the possiblity of
Legionella infection due to other serogroups or species of
Legionella. Clinical correlation is recommended.
09/06/25 10:33 Urine Streptococcus pneumoniae Antigen (M - Final
Negative for Streptococcus pneumoniae antigen.
A negative result does not exclude infection with
Streptococcus pneumoniae. Clinical correlation is
recommended.
09/06/25 03:05 Nose Nasal Screen MRSA (PCR) - Final
MRSA not detected - performed by PCR methodology.
--- NOTE | 2025-09-08 09:21 | W.PN.ID1 ---
Date of Service
Date of Service: September 08, 2025
Today's Communication
Continue Unasyn. Discontinue further vancomycin.
Assessment / Plan
Right sided empyema
- Cultures with Strep. viridans
- H/o L sided empyema 07/2020 - resolved on follow up imaging
PE
Leukocytosis; improved
Recommendations:
- blood cultures : NGTD
- Pleural fluid cultures with strep viridans.
- Continue unasyn; discontinue further vancomycin.
- follow chest tube output.
- Repeat imaging to assess improvement in loculations.
����������������������������������������������������������
Chief Complaint
-: Other (Right empyema 2* Strep viridans)
Subjective / Review of Systems
Patient seen and examined. Reports right sided chest discomfort attributable to the chest tube. Received tPA yesterday.
Review of Systems: No Fever and No Chills
Vital Signs / Physical Exam
Vital Signs
Vital Signs
Temp Pulse Resp BP Pulse Ox
98.1 F 101 23 144/108 95
09/08/25 08:00 09/08/25 08:00 09/08/25 08:00 09/08/25 08:00 09/08/25 08:25
Physical Exam
Constitutional: No Acute Distress, Comfortable and Non-toxic
Eyes: Sclera Anicteric
Cardiovascular: S1/S2; Negative S3/S4
Pulmonary: Clear and Other (Decreased breath sounds right side. Right-sided chest tube with bloody drainage.); Negative Wheezes or Rhonchi
Gastrointestinal: Soft and Non Tender
Genito-Urinary: Negative Chua
Musculoskeletal: Negative Joint Swelling
Neurological: Awake and Alert
Psychological: Calm
Objective Data
Lab Data
Lab Results
09/08/25 03:42
09/08/25 03:42
PT 14.8 Sec (11.4-14.6) H 09/05/25 20:45
INR 1.15 09/05/25 20:45
APTT 90.5 Sec (23.4-35.0) H 09/08/25 03:42
Estimated Creat Clear > 125 ml/min 09/08/25 03:42
Lactic Acid 1.9 mmol/L (0.7-2.0) 09/05/25 20:45
Total Bilirubin 0.6 mg/dl (0.2-1.3) 09/08/25 03:42
GGT 39 U/L (15-73) 09/06/25 09:33
AST 34 U/L (17-59) 09/08/25 03:42
ALT 51 U/L (0-50) H 09/08/25 03:42
Alkaline Phosphatase 116 U/L (38-126) 09/08/25 03:42
Most recent labs reviewed.
Micro Results:
09/05/25 20:45 Blood Culture - Preliminary
Blood/Venous No Growth in 48 hours- Final report to follow
09/05/25 20:45 Blood Culture - Preliminary
Blood/Venous No Growth in 48 hours- Final report to follow
09/06/25 14:24 Body Fluid Culture - Preliminary
Thoracentesis Fluid Viridans Streptococcus Group
Gram Stain - Preliminary
09/06/25 14:24 Acid Fast Bacilli Smear - Pending
Pleural Fluid Acid Fast Bacilli Culture - Pending
09/06/25 14:24 Fungal Smear - Pending
Pleural Fluid Fungal Culture - Pending
09/06/25 10:33 Legionella Urinary Antigen - Final
Urine Negative for Legionella pneumophila Serogroup 1 antigen.
A negative result does not rule out the possiblity of
Legionella infection due to other serogroups or species of
Legionella. Clinical correlation is recommended.
Streptococcus pneumoniae Antigen (M - Final
Negative for Streptococcus pneumoniae antigen.
A negative result does not exclude infection with
Streptococcus pneumoniae. Clinical correlation is
recommended.
09/06/25 03:05 Nasal Screen MRSA (PCR) - Final
Nose MRSA not detected - performed by PCR methodology.
Imaging:
09/05/2025 CT chest PE study: moderate to large right pleural effusion with multiple loculations concerning for empyema. Confluent areas of parenchymal opacity within the right lung, most suggestive of compressive atelectasis. Please see full
dictation for additional detail.
[2025-09-08] MEDS: LOVENOX 110 MG SC (10:01)
--- NOTE | 2025-09-08 10:25 | PTCARENOTE ---
Dozed briefly, now eating breakfast. Sats have been 95-96%- O2 decreased to 4L midflow.
--- NOTE | 2025-09-08 10:48 | W.PN.HOSP.TC ---
Today's Communication/Plan
-
Switch to Lovenox as renal function stable
cont Unasyn follow CBC
Assessment / Plan
Assessment / Plan
60yo M with PMHx of anxiety, HTN, HLD, atopic d/o, Hx of L empyema, MARGAERT mass s/p bronch and biopsy in 2022 neg for malignant cells came after developing worsening SOB and excessive sputum while travelin to [place]. Had recently diagnozed with
bronchitis and treated with oral Abx as per his PCP. Found moderate loculated R pleural effusion and leukocytosis concerning for pneumonia with empyema and pulmonary embolism
A/P:
#Acute hypoxic respiratory failure (tachypnea, hypoxia 2/2 sepsis (leukocytosis, hypoxia, R pleural effusion) due to Pneumonia, CAP with R sided empyema
Pleural fluid with singh purulence, cont chest tube, tPa and repositioning due to loculation as per pulm
Cx with Viridans strep and GNR - follow ID - Unasyn as of 09/07/25
Bcx NTD
Vanco/Zosyn
Pulm consult: s/p tPa with successful improvement in output
IRAD for chest tube, labs to be ordered - added culture
Sputum Cx not provided
legionella and s.pneumonia urinary Ag neg
Wean off O2
Igg minimally decreased, which is not specific, outpatient drilling manager advised
Incentive spirometry
#L acute provoked pulmonary embolism
most likely 2/2 long flight
no signs of RH strain on CT
Lovenox and eventual DOAC for 3-6mo and outpatient hem w/u for hypercoagulability - patient verbalized understanding of the instructions
Echo: normal biventricular size and function without regional wall motion abnormality,
LE US neg for DVT
#dilated aortic root
4.4cm
repeat Echo in 6-12 mo
#Fatty liver
low fat diet
cont statin
#Hyperkalemia
unclear reason
start low potassium diet
Follow BMP, hold ACEi
#Elevated alk.phos
no overt RUQ abd pain
follow LFT
check GGT
#Essential HTN
#GERD
#HLD
#Atopic D/O
cont home meds except of above
#PReDM
#Obesity
#Metabolic syndrome
Low fat diet
BMI 35.1
low carb diet advised
loose weight
DVT ppx hep drip
FUll code
I have spent at least 51min reviewing chart, test results, communication with consultants and providing direct patient care
Anticipated Discharge: > 48 hours
Subjective/Interval History
-
Date of Service: September 08, 2025
Objective Data
-
Labs:
Laboratory Results
09/07/25 09/08/25
23:24 03:42
WBC 28.6 H
Hgb 13.3
Hct 39.7
Plt Count 400
APTT 89.4 H 90.5 H
Sodium 132 L
Potassium 5.1
Chloride 104
Carbon Dioxide 25
BUN 24 H
Creatinine 0.7
Glucose 110 H
Calcium 7.9 L
Total Bilirubin 0.6
AST 34
ALT 51 H
Alkaline Phosphatase 116
Vital Signs:
Vital Signs
Temp Pulse Resp BP Pulse Ox
98.1 F 93 14 141/81 96
09/08/25 08:00 09/08/25 10:00 09/08/25 10:00 09/08/25 10:00 09/08/25 10:00
I&O
09/07/25 09/08/25 09/09/25
06:59 06:59 06:59
Intake Total 3850 / 3876 2396 / 2424 356 / 356
Output Total 3720 / 3720 3430 / 3430 200 / 200
Balance 130 / 156 -1034 / -1006 156 / 156
Review of Systems
-
History Source: Patient
All other systems: Reviewed and negative
Physical Exam
-
General: No Apparent Distress
HEENT: Normocephalic
Cardiac: Regular Rhythm
GI: Soft, Nontender and Nondistended
Musculoskeletal: No Clubbing, No Cyanosis and No Edema
Neuro: Awake, Alert, Oriented and AO x 3
Psych: Calm
[2025-09-08] MEDS: DILAUDID 2 MG IV (11:37)
[2025-09-08 11:42] LABS: Total Cells Counted 100
[2025-09-08] MEDS: FLUSH (NSS) 2 FLUSH IV (11:42)
[2025-09-08] MEDS: CATHFLO/ACTIVASE 50 MG INTRAPLEUR ×2 (11:58→18:13)
[2025-09-08] MEDS: CATHFLO/ACTIVASE 50 ML INTRAPLEUR ×2 (11:58→18:13)
[2025-09-08] MEDS: PULMOZYME 50 MG INTRAPLEUR ×2 (12:02→18:12)
[2025-09-08] MEDS: PULMOZYME 50 ML INTRAPLEUR ×2 (12:02→18:12)
[2025-09-08] MEDS: NSS 25 ML INTRAPLEUR (12:03)
--- NOTE | 2025-09-08 12:05 | W.SUR.POST ---
Surgical Immediate Post Op
Note
Date of Procedure: 09/08/2025
Instillation: #2 of planned 6
Medications used: 10 mg alteplase, 5 mg dornase
Operative Findings: After verbal consent obtained, patient was positioned into recumbent position so that I could access the right-sided chest tube. Chest tube was clamped, and sterile technique was employed including: hand washing, sterile
gloves, mask and gown. Chest tube tubing was disconnected so that I could access opening, and a three-way stopcock was attached for easy instillation of medications into the chest tube. Normal saline 0.9% was flushed into chest tube without
resistance. 10mg of tPA and 5mg of dornase were instilled without incident, and flushed with 10cc of NS 0.9% after each instillation. Alcohol wipes were used to wipe down the catheter tips and the 3-way stop cock site before and after each
instillation to maximize sterility. Chest tube 3-way stop cock was then turned to off position towards the patient, and is to remain off suction for 120 minutes, at which point the chest tube 3-way stop cock should be opened up to allow flow
towards Pleur-evac and Pleur-evac should be placed back onto suction at [id number] (unless specified otherwise by provider). Patient tolerated procedure without any immediate complications, and I answered all of his questions.
--- NOTE | 2025-09-08 12:10 | PTCARENOTE ---
Overall assessment is unchanged. Plan to have Alteplase instilled in chest tube. Pt premedicated per MD at 1138 with Dilaudid 2 mg IV slowly over about 8 minutes. Pt felt warm but otherwise ok. VS as documented. 1200 Dr. Lemons at the bedside and
Alteplase 10 mg and Pulmozyme 5 mg along with NSS 25 mls all instilled intrapleurally via the R lat chest tube. R Chest tube clamped post and will unclamp and place back to suction at 1400. Pt tolerated procedure well and states he is comfortable.
Currently states he has no pain in the R chest. Pt expectorating clear to whitish sl thick secretions. Sputum C+S sent as ordered. All Iv's remain capped. Pt resting currently . at the bedside and updated, call bhat in reach.
--- NOTE | 2025-09-08 13:01 | CM ---
Pt remains in ICU on 8LPM O2 heparin gtt off today transition to lovenox
Right CT in IV abx continues DCP is to go home with C? will continue to follow up
[2025-09-08] MEDS: FLUSH (NSS) 1 FLUSH IV (14:36)
--- NOTE | 2025-09-08 14:40 | PTCARENOTE ---
Chest tube unclamped at 1410 per MD request and placed back on suction-20 cm. Return of bloody purulent drainage. Intially pt was comfortable but started to c/o R lat chest soreness. Medicated with Dilaudid 0.5 mg IV for 6/10 discomfort. Remains on
4l midflow with sats of 92-93%. Did not want anything for lunch. Call bhat in reach.
[2025-09-08] MEDS: ATROVENT NEBULES 0.5 MG INH (16:23)
--- NOTE | 2025-09-08 16:30 | PTCARENOTE ---
Dozing off and on since Dilladid earlier. States - the pain is tolerable but that he is just sore. Did not want to get oob, said he is tired and feels better for now laying in bed- encouraged pt to keep moving his legs./ Repositioned on his L side.
Definitely still gets very BACA with any activity. Pt with increased exp wheezing. Resp therapy updated and neb being given. VS as documented. R lat CT unchanged draining bloody purulent drainage. Voiding yellow urine in the urinal. Call bhat in
reach.
[2025-09-08] MEDS: NSS INTRAPLEUR (18:20)
--- NOTE | 2025-09-08 18:22 | W.SUR.POST ---
Surgical Immediate Post Op
Note
Date of Procedure: 09/08/2025
Instillation: #3 of planned 6
Medications used: 10 mg alteplase, 5 mg dornase
Operative Findings: After verbal consent obtained, patient was positioned into recumbent position so that I could access the right-sided chest tube. Chest tube was clamped, and sterile technique was employed including: hand washing, sterile
gloves, mask and gown. Chest tube tubing was disconnected so that I could access opening, and a three-way stopcock was attached for easy instillation of medications into the chest tube. Normal saline 0.9% was flushed into chest tube without
resistance. 10mg of tPA and 5mg of dornase were instilled without incident, and flushed with 10cc of NS 0.9% after each instillation. Alcohol wipes were used to wipe down the catheter tips and the 3-way stop cock site before and after each
instillation to maximize sterility. Chest tube 3-way stop cock was then turned to off position towards the patient, and is to remain off suction for 120 minutes, at which point the chest tube 3-way stop cock should be opened up to allow flow
towards Pleur-evac and Pleur-evac should be placed back onto suction at [id number] (unless specified otherwise by provider). Patient tolerated procedure without any immediate complications, and I answered all of his questions.
--- NOTE | 2025-09-08 18:30 | PTCARENOTE ---
Dr. Lemons back in and Alteplase 10 mg and Pulmozyme 5 mg instilled along with NSS via R lat chest tube. Chest tube then clamped. Due to be unclamped at 2020 and placed back to suction -20. Pt tolerated and is resting currently. Ate/drank some
liquids for dinner.
[2025-09-08] MEDS: ROXICODONE 10 MG PO (18:43)
--- NOTE | 2025-09-08 18:45 | PTCARENOTE ---
Medicated per MD order with Roxicodone 10 mg po. No other changes
[2025-09-08] MEDS: PROTONIX 40 MG PO (19:49)
[2025-09-08] MEDS: TESSALON PERLES 200 MG PO (19:50)
--- NOTE | 2025-09-08 21:20 | PTCARENOTE ---
Handoff report received from off going RN. Dual RN right chest tube assessment completed. Chest tube is with bloody purulent output. Unclamped at 20:20 to wall suction at -20. Patient is AAOx3 and able to make his needs known. Verbalizes 5/10 pain.
Beads of sweat on pt's forehead, and pt's BACA and tachycardic on the monitor. Pt's taking shallow breaths and clenching his jaw. PRN Dilaudid offered. Hearing aid is on the aluminum can collector. SpO2 at 93% on 5L o2 via midflow nasal canula. Inspiratory &
expiratory wheezing with coarse breath sounds. Occasional moist cough with white sputum. + BS. Pt utilizes the urinal. chest tube output of 450 ml. Pleur evac changed. Call bhat is within reach.
[2025-09-08] MEDS: LOVENOX 105 MG SC (22:08)
[2025-09-09] VITALS (26 sets, daily range): BP systolic 115–140; BP diastolic 73–95; BMI 35.0
--- NOTE | 2025-09-09 00:17 | PTCARENOTE ---
Patient reassessed. chest tube continues to drain bloody purulent output. Pt's voiding delfino urine. Remains tachycardic on the monitor. SpO2 at 95% on midflow o2.
[2025-09-09] MEDS: DILAUDID 0.5 MG IV ×2 (00:48→08:15)
[2025-09-09] MEDS: ATROVENT NEBULES 0.5 MG INH (00:58)
[2025-09-09] MEDS: UNASYN IV ×4 (02:09→20:04)
[2025-09-09 03:52] LABS: Hematocrit 39.6 % (39.0-52.0); Hemoglobin 13.0 g/dL (13.0-18.0); Mean Corp Hgb Conc. 32.8 g/dL (33.0-37.0); Mean Corpuscular Volume 81.0 fL (80.0-94.0); Platelet Count 350 10^3/uL (130-400); Red Cell Dist. Width 14.6 % (11.5-14.5)
[2025-09-09 03:53] LABS: APTT 36.5 Sec (23.4-35.0)
[2025-09-09 04:08] LABS: ALT (SGPT) 40 U/L (0-50); AST (SGOT) 26 U/L (17-59); Albumin 2.4 g/dl (3.5-5.0); Alkaline Phosphatase 108 U/L (38-126); Blood Urea Nitrogen 20 mg/dl (9-20); Calcium 7.8 mg/dl (8.4-10.2); Carbon Dioxide 26 mmol/L (22-30); Chloride 99 mmol/L (98-107); Estimated Creatinine Clearance > 125 ml/min; Glucose 115 mg/dl (70-99); Potassium 4.7 mmol/L (3.5-5.1); Sodium 129 mmol/L (135-145); Total Protein 5.0 g/dl (6.3-8.2); eGFR > 60.00
[2025-09-09 05:11] LABS: Nucleated Red Blood Cells % 0.1 % (-)
--- NOTE | 2025-09-09 05:34 | PTCARENOTE ---
Patient reassessed. No changes from the previous assessment.
--- NOTE | 2025-09-09 08:01 | PTCARENOTE ---
Cannot verify accuracy of vital signs saved [id number]
--- NOTE | 2025-09-09 08:06 | W.PN.ID1 ---
Date of Service
Date of Service: September 09, 2025
Today's Communication
Continue antibiotics
Assessment / Plan
Right sided empyema
- Cultures with Strep. viridans
- Hx of (L) sided empyema (07/2020) - resolved on follow up imaging
PE
Leukocytosis; improved
Recommendations:
- blood cultures : NGTD
- Pleural fluid cultures with Strep. viridans.
- Continue unasyn
- follow chest tube output.
- Follow white count and temperature curve
- Follow repeat imaging to assess improvement/resolution in loculations/effusion.
����������������������������������������������������������
Chief Complaint
-: Other (Right empyema 2* Strep. viridans)
Subjective / Review of Systems
Patient seen and examined.
Review of Systems: No Fever and No Chills
Vital Signs / Physical Exam
Vital Signs
Vital Signs
Temp Pulse Resp BP Pulse Ox
98.1 F 114 18 132/86 96
09/09/25 07:58 09/09/25 08:00 09/09/25 08:00 09/09/25 08:00 09/09/25 08:00
Physical Exam
Constitutional: No Acute Distress, Comfortable and Non-toxic
Eyes: Sclera Anicteric
Cardiovascular: S1/S2; Negative S3/S4
Pulmonary: Clear and Other (Decreased breath sounds right side. Right-sided chest tube with bloody drainage.); Negative Wheezes or Rhonchi
Gastrointestinal: Soft and Non Tender
Genito-Urinary: Negative Chua
Musculoskeletal: Negative Joint Swelling
Neurological: Awake and Alert
Psychological: Calm
Objective Data
Lab Data
Lab Results
09/09/25 03:34
09/09/25 03:34
PT 14.8 Sec (11.4-14.6) H 09/05/25 20:45
INR 1.15 09/05/25 20:45
APTT 36.5 Sec (23.4-35.0) H 09/09/25 03:34
Estimated Creat Clear > 125 ml/min 09/09/25 03:34
Lactic Acid 1.9 mmol/L (0.7-2.0) 09/05/25 20:45
Total Bilirubin 0.6 mg/dl (0.2-1.3) 09/09/25 03:34
GGT 39 U/L (15-73) 09/06/25 09:33
AST 26 U/L (17-59) 09/09/25 03:34
ALT 40 U/L (0-50) 09/09/25 03:34
Alkaline Phosphatase 108 U/L (38-126) 09/09/25 03:34
Most recent labs reviewed.
Micro Results:
09/06/25 14:24 Acid Fast Bacilli Smear - Preliminary
Pleural Fluid Acid Fast Bacilli Culture - Preliminary
09/05/25 20:45 Blood Culture - Preliminary
Blood/Venous No Growth in 72 hours- Final report to follow
09/05/25 20:45 Blood Culture - Preliminary
Blood/Venous No Growth in 72 hours- Final report to follow
09/08/25 10:59 Respiratory Culture - Pending
Sputum Gram Stain - Preliminary
09/06/25 14:24 Body Fluid Culture - Preliminary
Thoracentesis Fluid Viridans Streptococcus Group
Gram Stain - Preliminary
09/06/25 14:24 Fungal Smear - Pending
Pleural Fluid Fungal Culture - Pending
09/06/25 10:33 Legionella Urinary Antigen - Final
Urine Negative for Legionella pneumophila Serogroup 1 antigen.
A negative result does not rule out the possiblity of
Legionella infection due to other serogroups or species of
Legionella. Clinical correlation is recommended.
Streptococcus pneumoniae Antigen (M - Final
Negative for Streptococcus pneumoniae antigen.
A negative result does not exclude infection with
Streptococcus pneumoniae. Clinical correlation is
recommended.
09/06/25 03:05 Nasal Screen MRSA (PCR) - Final
Nose MRSA not detected - performed by PCR methodology.
Imaging:
09/05/2025 CT chest PE study: moderate to large right pleural effusion with multiple loculations concerning for empyema. Confluent areas of parenchymal opacity within the right lung, most suggestive of compressive atelectasis. Please see full
dictation for additional detail.
CT Scan: Image Reviewed and Report Reviewed
Care Review
Plan reviewed with: Nurse
[2025-09-09] MEDS: ZOLOFT 25 MG PO (08:09)
[2025-09-09] MEDS: MUCINEX 1200 MG PO ×2 (08:09→20:03)
[2025-09-09] MEDS: TESSALON PERLES 200 MG PO ×2 (08:09→20:03)
[2025-09-09] MEDS: PROTONIX 40 MG PO ×2 (08:09→20:03)
[2025-09-09] MEDS: LIPITOR 20 MG PO (08:09)
--- NOTE | 2025-09-09 08:22 | W.PN.INTV ---
Today's Communication / Plan
Recommendations
Continue chest tube with lytic instillation -receiving 4th and 5th doses today, and then will get the last dose tomorrow
Monitor chest tube output
CXR tomorrow
Continue Unasyn
Mucinex + Tessalon Perles
Start scheduled DuoNebs given wheezing on exam
Patient is stable for downgrade out of ICU to telemetry. Pulmonary service will continue to follow along. Once patient is discharged, we will arrange for follow-up again with Dr. Trinidad (last visit 10/08/2023)
Assessment
-
Assessment:
A 60 year old male with a PMH of prior left sided empyema (2019), hypertension, hyperlipidemia, GERD and anxiety who started having significant shortness of breath upon exertion which worsened with any activity during a trip to [facility]. Patient
contacted Dr. Trinidad who advised him to return back to the [place] given prior history of empyema. Upon arrival to the ED, patient was found to be afebrile with tachycardia (HR 130), tachypnea (RR 24-30) and leukocytosis (WBC 31.3), O2 90% on room air
which only improved to 90-93% with 6 L O2 supplementation. Trops negative. CTA chest showed moderate to large right-sided pleural effusion with multiple loculations with confluent parenchymal opacities within the right lung likely compressive
atelectasis however underlying pneumonia also possible. Also a suspicious pulmonary embolism involving a left lower lobe pulmonary artery. Patient was stared on Zosyn and Vancomycin in the ED, and given albuterol, ipratropium, Decadron and started
on heparin drip for the pulmonary embolism. Patient was subsequently admitted to the ICU, however after drainage/chest tube placement on 09/06/25, was deemed stable for downgrade to IMU. Given significant shortness of breath after first
instillation of tPA/dornase through chest tube, he was re-upgraded back to ICU.
Impression:
#Multiloculated collections due to empyema with right sided pneumonia s/p chest tube (placed 09/06 by IR)
#Submassive pulmonary artery involving left lower lobe without evidence of RV strain (PESI score - class III - -> 3.2 - 7.1% 30 day mortality)
#Acute respiratory failure with hypoxia due to above in setting acute PE
#Small hiatal hernia
#Former tobacco smoker (no evidence of COPD per PFTs, with FEV1/FVC 80 (105% predicted) via PFT from April 2023)
#History of hypertension/hyperlipidemia
#History of Iyer's esophagus
#History of left-sided pneumonia with empyema s/p chest tube (July 2020 - pleural fluid Cx grew Streptococcus mitis at the time)
Plan:
- IR consulted and patient underwent chest tube insertion on 09/06
- Pleural fluid analysis consistent with empyema with pH 6.5, LDH >10,000, glucose <30, and fluid WBC 248,300 which was monocyte predominant
- Pleural fluid culture grew Streptococcus viridans
- Pleural fluid cytology is still pending
- Continue with lytics through chest tube - Day #3 today (09/09)
- ID consulted; considering that he has had an empyema approximately 5 years ago, immunoglobulins checked and showed mildly reduced IgG at 640 (normal is 700-1600 mg/dL); IgG subclasses pending
- Continue with antibiotics - -> currently on Unasyn s/p IV vancomycin - -> since fluid culture is growing alpha-hemolytic strep, IV vancomycin stopped
- Follow-up blood cultures (NGTD); MRSA swab negative
- Mucolytics + short-course of tessalon perles given he has been having a harsh cough s/p tPA/dornase instillation since 09/07
- Start scheduled DuoNebs given the wheezing heard on exam
- prn nebulized bronchodilators
- Given that the chest tube drainage had been think, chest tube lytics started with tPA + dornase instillation - --> will give 4th and 5th instillations today, clamp x [address] back onto suction
- Pain control will be needed after lytics are given
- Repeat CXR tomorrow with plan for eventual repeat CT chest to assess for improvement/resolution of empyema
- Trend WBC and monitor temperature curve
- Continue with therapeutic LMWH for his PE - recommend case management consult to assess affordability of NOAC, preferably Eliquis
- Lower extremity duplex from 09/06 showed no evidence for DVT
- Echo from 09/06/2025 showed normal biventricular size and systolic function with trace TR
- Eventual outpatient hematology evaluation for hypercoag workup and to assess duration of AC needed
- Maintain SpO2 >90-94% using supplemental O2, titrating down dose as tolerated
- Of note, he needed BiPAP s/p tPA/dornase instilled through chest tube on 09/07, and this is what led us to upgrading him back to ICU level of care as he has significant shortness of breath with right-sided chest pain and then was becoming hypoxic
and BiPAP was needed due to increased work of breathing
- He has remained stable since 09/08, with no requirements for BiPAP and no high oxygen requirements
- Aspiration precautions
- Maintain MAP>65
- Replete electrolytes with K>4, Mg>2
- Maintain euglycemia with goal BG 140-180; HbA1C: 6.2 on 09/07/2025
- Trend H/H and transfuse if needed to keep Hb>7g/dL; keep plt>50k (given presence of chest tube and now on therapeutic Lovenox)
- Incentive spirometer encouraged 10x per hour for at least 4 hrs a day
- DVT ppx: Therapeutic LMWH
Patient is stable for downgrade out of ICU to telemetry. Pulmonary service will continue to follow along. Once patient is discharged, we will arrange for follow-up again with Dr. Trinidad (last visit 10/08/2023)
Data:
CTA Chest 09/05/2025:
Moderate to large right pleural effusion with multiple loculations. Given the patient's clinical history, findings raise concern for empyema.
Confluent areas of parenchymal opacity within the right lung, most suggestive of compressive atelectasis given the morphologic appearance. However, underlying pneumonia is also possible.
Findings considered highly suspicious for pulmonary embolism involving the left lower lobe pulmonary artery, as described above. Most proximal branching point is the left lower lobe lobar pulmonary artery.
No convincing evidence for right-sided pulmonary embolism.
No significant left pleural effusion.
Fatty infiltration the liver.
Total time spent today was 37 minutes for this encounter. Time includes reviewing laboratory test/imaging results, reviewing pertinent medical records, obtaining and reviewing medical history, performing an appropriate exam, ordering medications,
tests and procedures. Time also includes documentation of this encounter, coordinating patient care and communicating with other healthcare professionals. Total time does not include separately billed tests performed on this date of service.
Subjective Dataa
Subjective Data
Date of Service:
Date of Service: September 09, 2025
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
Subjective:
Patient seen and evaluated this morning. Afebrile overnight. Still has some chest discomfort at the right-sided chest tube site. Has some secretions that he is coughing up, not a significant amount. Denies any nasal secretions or postnasal drip.
Denies MENA, nausea, fevers or chills. He's on 3L/min NC.
Review of Systems
General: Other (Negative unless mentioned above)
Objective Data
Data Reviewed
Vital Signs / I&O / Oxygen:
Vital Signs
Temp Pulse Resp BP Pulse Ox
97.6 F 110 23 135/79 95
09/09/25 11:58 09/09/25 11:00 09/09/25 11:00 09/09/25 11:00 09/09/25 11:00
Intake and Output
09/08/25 09/09/25 09/10/25
06:59 06:59 06:59
Intake Total 2396 / 2424 2161 / 2161 840 / 840
Output Total 3430 / 3430 2795 / 2795 300 / 300
Balance -1034 / -1006 -634 / -634 540 / 540
SaO2 95
Nasal Cannula flow liters per 5
minute
Physical Exam
General: Respiratory Distress (negative), Pain (Right hemithorax at chest tube site), Chills (negative) and Sweats (negative)
HEENT: Normocephalic, Anicteric and Moist Mucous Membranes
Cardiovascular: S1-S2 and Peripheral Edema (negative)
Respiratory: Wheeze (Occasional end-expiratory), Crackles (Bilaterally (R >L)), Rhonchi (Bilaterally), Chest Tube (Right hemithorax with no airleak on -20 cmH2O suction) and Other (Decreased breath sounds on the right side)
GI: Soft, Distended (Abdominal obesity), Non Tender and Normal Bowel Sounds
Neurology: Awake, Alert, Oriented and Tremors (negative)
Skin: Warm, Dry, Jaundice (negative) and Rash (negative)
Labs/Micro/Reports
Lab Data
09/09/25 03:34
Laboratory Results
09/09/25
03:34
APTT 36.5 H
Microbiology
09/08/25 10:59 Sputum Respiratory Culture - Preliminary
Usual Respiratory Cheri
09/08/25 10:59 Sputum Gram Stain - Preliminary
09/06/25 14:24 Pleural Fluid Acid Fast Bacilli Smear - Preliminary
09/06/25 14:24 Pleural Fluid Acid Fast Bacilli Culture - Preliminary
09/05/25 20:45 Blood/Venous Blood Culture - Preliminary
No Growth in 72 hours- Final report to follow
09/05/25 20:45 Blood/Venous Blood Culture - Preliminary
No Growth in 72 hours- Final report to follow
09/06/25 14:24 Thoracentesis Fluid Body Fluid Culture - Preliminary
Viridans Streptococcus Group
09/06/25 14:24 Thoracentesis Fluid Gram Stain - Preliminary
09/06/25 10:33 Urine Legionella Urinary Antigen - Final
Negative for Legionella pneumophila Serogroup 1 antigen.
A negative result does not rule out the possiblity of
Legionella infection due to other serogroups or species of
Legionella. Clinical correlation is recommended.
09/06/25 10:33 Urine Streptococcus pneumoniae Antigen (M - Final
Negative for Streptococcus pneumoniae antigen.
A negative result does not exclude infection with
Streptococcus pneumoniae. Clinical correlation is
recommended.
09/06/25 03:05 Nose Nasal Screen MRSA (PCR) - Final
MRSA not detected - performed by PCR methodology.
--- NOTE | 2025-09-09 08:37 | W.PN.HOSP.TC ---
Today's Communication/Plan
-
cont Abx
check A/R and aldosterone ratio
BMP q12h
cont Lovenox
decrease interval for dilaudid to improve pain mgmt
Assessment / Plan
Assessment / Plan
60yo M with PMHx of anxiety, HTN, HLD, atopic d/o, Hx of L empyema, MARGARET mass s/p bronch and biopsy in 2022 neg for malignant cells came after developing worsening SOB and excessive sputum while travelin to [place]. Had recently diagnozed with
bronchitis and treated with oral Abx as per his PCP. Found moderate loculated R pleural effusion and leukocytosis concerning for pneumonia with empyema and pulmonary embolism
A/P:
#Acute hypoxic respiratory failure (tachypnea, hypoxia 2/2 sepsis (leukocytosis, hypoxia, R pleural effusion) due to Pneumonia, CAP with R sided empyema
Pleural fluid with singh purulence, cont chest tube, tPa and repositioning due to loculation as per pulm
Cx with Viridans strep, GPC and GNR - pending identification - follow ID - Unasyn as of 09/07/25
Bcx NTD
Vanco/Zosyn
Pulm consult: s/p tPa with successful improvement in output, planned for 6 total treatments
IRAD for chest tube, labs to be ordered - added culture
Sputum Cx not provided
legionella and s.pneumonia urinary Ag neg
Wean off O2
Igg minimally decreased, which is not specific, outpatient software applications developer advised
Incentive spirometry
#L acute provoked pulmonary embolism
most likely 2/2 long flight
no signs of RH strain on CT
Lovenox and eventual DOAC for 3-6mo and outpatient hem w/u for hypercoagulability - patient verbalized understanding of the instructions
Echo: normal biventricular size and function without regional wall motion abnormality,
LE US neg for DVT
#dilated aortic root
4.4cm
repeat Echo in 6-12 mo
#Fatty liver
low fat diet
cont statin
#Hyperkalemia
unclear reason
start low potassium diet
Follow BMP, hold ACEi
#Hyponatremia
possible ADH activity with pain
improve pain mgmt
no signs of adrenal insufficiency
Check aldosterone, AR ratio
#Elevated alk.phos
no overt RUQ abd pain
follow LFT
check GGT
#Essential HTN
#GERD
#HLD
#Atopic D/O
cont home meds except of above
#PReDM
#Obesity
#Metabolic syndrome
Low fat diet
BMI 35.1
low carb diet advised
loose weight
DVT ppx Lovenox
Full code
I have spent at least 53min reviewing chart, test results, communication with consultants and providing direct patient care
Anticipated Discharge: > 48 hours
Subjective/Interval History
-
Date of Service: September 09, 2025
Objective Data
-
Labs:
Laboratory Results
09/09/25
03:34
WBC 25.1 H
Hgb 13.0
Hct 39.6
Plt Count 350
APTT 36.5 H
Sodium 129 L
Potassium 4.7
Chloride 99
Carbon Dioxide 26
BUN 20
Creatinine 0.7
Glucose 115 H
Calcium 7.8 L
Total Bilirubin 0.6
AST 26
ALT 40
Alkaline Phosphatase 108
Vital Signs:
Vital Signs
Temp Pulse Resp BP Pulse Ox
98.1 F 114 18 132/86 96
09/09/25 07:58 09/09/25 08:00 09/09/25 08:00 09/09/25 08:00 09/09/25 08:00
I&O
09/08/25 09/09/25 09/10/25
06:59 06:59 06:59
Intake Total 2396 / 2424 2161 / 2161
Output Total 3430 / 3430 2795 / 2795
Balance -1034 / -1006 -634 / -634
Review of Systems
-
History Source: Patient
All other systems: Reviewed and negative
Musculoskeletal: Reports Other (R chest pain, pleuritic)
Physical Exam
-
General: No Apparent Distress
HEENT: Normocephalic
Respiratory: Clear to Auscultation
Cardiac: Regular Rhythm
Musculoskeletal: No Clubbing, No Cyanosis and No Edema
Neuro: Awake, Alert, Oriented and AO x 3
Psych: Calm
--- NOTE | 2025-09-09 09:03 | PTCARENOTE ---
Patient A/O x4. Chest tube to -20 suction. No crepitus, no air leak, no tidaling. CT site dressing intact. Drainage appears red, with intermittent thick drainage in tubing. On 5L NC in/ex wheezing anteriorly. Dim/shallow. RLL crackles. Encouraged
I.S. Sinus tach 110s. +pedal pulses. Afebrile. Encouraged OOB to promote overall healing. Pt agreed. Assisted pt to sit at edge of bed and dangle legs. After a few moments, RN assisted into chair for breakfast. Wheezing anteriorly subsided after
getting up to the chair. pt ordered Breakfast. Denies dizziness. +BACA, able to recover after a minute. Sp02 93-94% with activity on 5L. Reports 7/[address] site. PRN Dilaudid able to provide relief. No gu complaints. Reports no BM. +BS +flatus.
Skin intact. Tolerating IV ABX. PIVs intact.
Call bhat and tray table within reach.
[2025-09-09] MEDS: LOVENOX 105 MG SC ×2 (10:33→22:54)
--- NOTE | 2025-09-09 12:29 | PTCARENOTE ---
Patient assist back into bed in preparation for tPA+dornase instillation.
4L Midflow, Sp02 96%. Patient reports feeling very fatigued. Otherwise assessment unchanged.
Does not want to order lunch. Call bhat and tray table within reach.
[2025-09-09] MEDS: ROXICODONE 10 MG PO ×2 (13:29→20:27)
[2025-09-09] MEDS: SENOKOT-S 2 TABLET PO (13:30)
--- NOTE | 2025-09-09 13:30 | W.SUR.POST ---
Surgical Immediate Post Op
Note
Date of Procedure: 09/09/2025
Instillation: #4 of planned 6
Medications used: 10 mg alteplase, 5 mg dornase
Operative Findings: After verbal consent obtained, patient was positioned into recumbent position so that I could access the right-sided chest tube. Chest tube was clamped, and sterile technique was employed including: hand washing, sterile
gloves, mask and gown. Chest tube tubing was disconnected so that I could access opening, and a three-way stopcock was attached for easy instillation of medications into the chest tube. Normal saline 0.9% was flushed into chest tube without
resistance. 10mg of tPA and 5mg of dornase were instilled without incident, and flushed with 10cc of NS 0.9% after each instillation. Alcohol wipes were used to wipe down the catheter tips and the 3-way stop cock site before and after each
instillation to maximize sterility. Chest tube 3-way stop cock was then turned to off position towards the patient, and is to remain off suction for 120 minutes, at which point the chest tube 3-way stop cock should be opened up to allow flow
towards Pleur-evac and Pleur-evac should be placed back onto suction at -[id number] (unless specified otherwise by provider). Patient tolerated procedure without any immediate complications, and I answered all of his questions.
--- NOTE | 2025-09-09 13:30 | PTCARENOTE ---
Dr. Lemons at bedside. Instilled Alteplase, Dornase & NSS flush via chest tube. Meds scanned into NOV. Chest tube clamped. Pt tolerated instillation. Plan to unclamp at 1530.
[2025-09-09] MEDS: PULMOZYME 50 ML INTRAPLEUR ×2 (13:37→20:23)
[2025-09-09] MEDS: NSS 25 ML INTRAPLEUR ×2 (13:37→20:24)
[2025-09-09] MEDS: PULMOZYME 50 MG INTRAPLEUR ×2 (13:37→20:23)
[2025-09-09] MEDS: CATHFLO/ACTIVASE 50 MG INTRAPLEUR ×2 (13:37→20:23)
[2025-09-09] MEDS: CATHFLO/ACTIVASE 50 ML INTRAPLEUR ×2 (13:37→20:23)
[2025-09-09] MEDS: DUONEB 3 ML INH ×2 (14:11→19:44)
[2025-09-09 18:06] LABS: Blood Urea Nitrogen 18 mg/dl (9-20); Calcium 7.5 mg/dl (8.4-10.2); Carbon Dioxide 27 mmol/L (22-30); Chloride 96 mmol/L (98-107); Estimated Creatinine Clearance > 125 ml/min; Glucose 102 mg/dl (70-99); Potassium 4.5 mmol/L (3.5-5.1); Sodium 127 mmol/L (135-145); eGFR > 60.00
[2025-09-09] MEDS: SENOKOT-S 1 TABLET PO (20:03)
--- NOTE | 2025-09-09 20:12 | W.SUR.POST ---
Surgical Immediate Post Op
Note
Date of Procedure: 09/09/2025
Instillation: #5 of planned 6
Medications used: 10 mg alteplase, 5 mg dornase
Operative Findings: After verbal consent obtained, patient was positioned into recumbent position so that I could access the right-sided chest tube. Chest tube was clamped, and sterile technique was employed including: hand washing, sterile
gloves, mask and gown. Chest tube tubing was disconnected so that I could access opening, and a three-way stopcock was attached for easy instillation of medications into the chest tube. Normal saline 0.9% was flushed into chest tube without
resistance. 10mg of tPA and 5mg of dornase were instilled without incident, and flushed with 10cc of NS 0.9% after each instillation. Alcohol wipes were used to wipe down the catheter tips and the 3-way stop cock site before and after each
instillation to maximize sterility. Chest tube 3-way stop cock was then turned to off position towards the patient, and is to remain off suction for 120 minutes, at which point the chest tube 3-way stop cock should be opened up to allow flow
towards Pleur-evac and Pleur-evac should be placed back onto suction at -[id number] (unless specified otherwise by provider). Patient tolerated procedure without any immediate complications, and I answered all of his questions.
--- NOTE | 2025-09-09 20:28 | PTCARENOTE ---
Alteplase, Dornase Otoniel, @ [facility] administered by dr. Lemons at 2014. Chest tube clamped and to be resumed at 22:15. Difficulty with scanning med labels. Pharmacy paged.
[2025-09-10] VITALS (26 sets, daily range): BP systolic 89–136; BP diastolic 56–96; BMI 34.8
[2025-09-10] MEDS: CATHFLO/ACTIVASE INTRAPLEUR ×2 (00:44)
[2025-09-10] MEDS: PULMOZYME INTRAPLEUR ×2 (00:45)
[2025-09-10] MEDS: NSS INTRAPLEUR (00:45)
[2025-09-10] MEDS: ROXICODONE 5 MG PO (01:15)
[2025-09-10] MEDS: TYLENOL 650 MG PO (01:15)
[2025-09-10] MEDS: DUONEB 3 ML INH ×4 (01:22→20:04)
--- NOTE | 2025-09-10 01:43 | PTCARENOTE ---
Patient verbalized pain s/p voiding. PRN administered. Pt's with inspiratory/expiratory wheezing, tachypneic, and spo2 at 90%. Tachycardic with HR in the 130s. CLAIM AUDITOR made aware for neb treatment. RT paged. Pt's chest tube tubing noted to have settled
bloody output that's not draining. Tubing manipulated by lifting it and striped. The chest tube started to drain and pt put out 500 ml. CLAIM AUDITOR made aware and at the bedside. Plan to have AM chest x-ray completed now. X-ray paged. Pt's SpO2 improved to
94% post neb treatment but remained wheezy and tachypneic. Pt's utilizing slow deep breathing.
[2025-09-10] MEDS: UNASYN IV ×4 (02:03→19:48)
[2025-09-10] MEDS: DILAUDID 0.5 MG IV ×5 (02:03→19:48)
[2025-09-10 05:16] LABS: ALT (SGPT) 29 U/L (0-50); AST (SGOT) 24 U/L (17-59); Albumin 2.2 g/dl (3.5-5.0); Alkaline Phosphatase 108 U/L (38-126); Blood Urea Nitrogen 19 mg/dl (9-20); Calcium 7.5 mg/dl (8.4-10.2); Carbon Dioxide 25 mmol/L (22-30); Chloride 96 mmol/L (98-107); Estimated Creatinine Clearance > 125 ml/min; Glucose 105 mg/dl (70-99); Magnesium 2.1 mg/dl (1.6-2.3); Potassium 4.7 mmol/L (3.5-5.1); Sodium 126 mmol/L (135-145); Total Protein 4.6 g/dl (6.3-8.2); eGFR > 60.00
[2025-09-10 05:36] LABS: Hematocrit 35.6 % (39.0-52.0); Hemoglobin 12.1 g/dL (13.0-18.0); Mean Corp Hgb Conc. 34.0 g/dL (33.0-37.0); Mean Corpuscular Volume 80.7 fL (80.0-94.0); Platelet Count 308 10^3/uL (130-400); Red Cell Dist. Width 14.4 % (11.5-14.5)
[2025-09-10 07:11] LABS: Nucleated Red Blood Cells % 0.1 % (-)
--- NOTE | 2025-09-10 08:48 | W.PN.UPDATE ---
Update Note
Progress Note Update
PAtient tachypneic and tachycardic overnight, seems not due to pain but complains of inability to take a deep breath. Increasing work of breathing. overnight XR with increasing dense opacity on R and residual subpolmonic pleural fluid in R anterior
hemithorax. Reading concerned for mildly enlarged cardiac siluette, not dictated on previous XR, however review of XR with possibility that it can be positional. Since bedside exam significantly differs from day prior - appropriate STAT CT chest
--- NOTE | 2025-09-10 09:24 | W.PN.ID1 ---
Date of Service
Date of Service: September 10, 2025
Today's Communication
Continue antibiotics.
Assessment / Plan
Right sided empyema
- Cultures with Strep. viridans
- Hx of (L) sided empyema (07/2020) - resolved on follow up imaging
PE left lower lobe pulmonary artery
Leukocytosis; ongoing
Recommendations:
- blood cultures : NGTD
- Pleural fluid cultures with Strep. viridans.
- Continue unasyn.
- follow chest tube output.
- Follow white count and temperature curve
- For stat CT chest
����������������������������������������������������������
Chief Complaint
-: Other (Right empyema 2* Strep. viridans)
Subjective / Review of Systems
Patient seen and examined. Increased work of breathing today. Increased chest pain.
Vital Signs / Physical Exam
Vital Signs
Vital Signs
Temp Pulse Resp BP Pulse Ox
98.7 F 138 23 93/56 93
09/10/25 08:35 09/10/25 08:30 09/10/25 08:30 09/10/25 08:30 09/10/25 08:30
Physical Exam
Constitutional: Acutely Ill, Non-toxic and Other (Appears uncomfortable)
Eyes: Sclera Anicteric
Cardiovascular: S1/S2; Negative S3/S4
Pulmonary: Other (Decreased breath sounds right side. Right-sided chest tube with bloody drainage, although less than yesterday.); Negative Rhonchi
Gastrointestinal: Soft, Non Distended and Normal Bowel Sounds
Genito-Urinary: Negative Chua
Musculoskeletal: Negative Joint Swelling
Neurological: Awake and Alert
Psychological: Calm
Objective Data
Lab Data
PT 14.8 Sec (11.4-14.6) H 09/05/25 20:45
INR 1.15 09/05/25 20:45
APTT 36.5 Sec (23.4-35.0) H 09/09/25 03:34
Estimated Creat Clear > 125 ml/min 09/10/25 04:34
Lactic Acid 1.9 mmol/L (0.7-2.0) 09/05/25 20:45
Total Bilirubin 0.5 mg/dl (0.2-1.3) 09/10/25 04:34
GGT 39 U/L (15-73) 09/06/25 09:33
AST 24 U/L (17-59) 09/10/25 04:34
ALT 29 U/L (0-50) 09/10/25 04:34
Alkaline Phosphatase 108 U/L (38-126) 09/10/25 04:34
Most recent labs reviewed.
Micro Results:
09/05/25 20:45 Blood Culture - Preliminary
Blood/Venous No Growth in 4 days- Final report to follow
09/05/25 20:45 Blood Culture - Preliminary
Blood/Venous No Growth in 4 days- Final report to follow
09/06/25 14:24 Body Fluid Culture - Final
Thoracentesis Fluid Viridans Streptococcus Group
Gram Stain - Final
09/08/25 10:59 Respiratory Culture - Preliminary
Sputum Usual Respiratory Cheri
Gram Stain - Preliminary
09/06/25 14:24 Acid Fast Bacilli Smear - Preliminary
Pleural Fluid Acid Fast Bacilli Culture - Preliminary
09/06/25 14:24 Fungal Smear - Pending
Pleural Fluid Fungal Culture - Pending
09/06/25 10:33 Legionella Urinary Antigen - Final
Urine Negative for Legionella pneumophila Serogroup 1 antigen.
A negative result does not rule out the possiblity of
Legionella infection due to other serogroups or species of
Legionella. Clinical correlation is recommended.
Streptococcus pneumoniae Antigen (M - Final
Negative for Streptococcus pneumoniae antigen.
A negative result does not exclude infection with
Streptococcus pneumoniae. Clinical correlation is
recommended.
09/06/25 03:05 Nasal Screen MRSA (PCR) - Final
Nose MRSA not detected - performed by PCR methodology.
Imaging:
09/05/2025 CT chest PE study: moderate to large right pleural effusion with multiple loculations concerning for empyema. Confluent areas of parenchymal opacity within the right lung, most suggestive of compressive atelectasis. Please see full
dictation for additional detail.
Care Review
Plan reviewed with: Physician (Hospitalist)
--- NOTE | 2025-09-10 09:43 | W.CON.NEPH ---
Consultation
-
Date/Time Consultation Requested: 09/10/2025 9:30 AM
Date/Time Consultation Performed: 09/10/2025 945
Requesting Provider: Dr. Patel
Performing Provider: Dr. Hooker
Reason for Consultation: Hyponatremia
Medical History
-
Chief Complaint: Hyponatremia
History of Present Illness:
60 male history of empyema requiring tPA dornase chest 2 secondary to Streptococcus mitis, GERD, peptic ulcer disease, hypertension on nancy, hyperlipidemia on statin who presented for worsening ongoing shortness of breath over the last 5 days.
Initially started on a plane journey to [place]. Progressively got worse called his outpatient wood turner Dr. Niño recommended to get on the first flight back and present directly to the hospital. He admits to right sided chest discomfort
shortness of breath, shortness of breath with exertion so bad that he required wheelchair use not relieved by anything. Has a cough unable to clear mucus though. Had chills diaphoretic without documented fever. He now has recurrence of empyema
with chest tube placement and nephrology was consulted for hyponatremia due to his serum sodium of 126.
Past Medical History
Pneumonia, emphyema, anxiety, asthma, HTN, Iyer;s esophagus, hld,
Past Surgical History: Reports Other
Additional Past Surgical History:
esophagus ablation
Social History
Tobacco: Former Smoker
Alcohol: Occasional
Family History
Family History: Not Pertinent
Allergies / Home Medications
Allergy/AdvReac Type Severity Reaction Status Date / Time
No Known Allergies Allergy Verified 09/05/25 19:46
�Medication �Instructions �Recorded �Confirmed �Type
cetirizine 10 mg tablet 10 mg PO BID Allergies 07/31/20 09/05/25 History
lisinopril 10 mg tablet 10 mg PO DAILY Blood pressure 07/31/20 09/05/25 History
sertraline 25 mg tablet 25 mg PO DAILY Depression 07/31/20 09/05/25 History
pantoprazole 40 mg tablet,delayed 40 mg PO BID #60 tabs 08/15/20 09/05/25 Rx
release
atorvastatin 20 mg tablet 20 mg PO DAILY High Cholesterol 06/22/23 09/05/25 History
Review of Systems
-
History Source: Patient
All other systems: Negative unless noted
Respiratory: Trouble Breathing and Other (chest tube pain on right)
Physical Exam
Vital Signs
Vital Signs
Temp Pulse Resp BP Pulse Ox
98.7 F 138 23 93/56 93
09/10/25 08:35 09/10/25 08:30 09/10/25 08:30 09/10/25 08:30 09/10/25 08:30
Lab Results
eGFR > 60.00 09/10/25 04:34
Phosphorus 3.7 mg/dl (2.5-4.5) 09/10/25 04:34
Kos-N-Abjrzhdygtr Pept 339 pg/ml 09/05/25 19:55
Physical Exam
General: AOx3, Nontoxic , NAD
HEENT: PERRL, EOMI, Anicteric, Conjunctivae Clear, Ear/Nose Intact, Hearing Normal, Oropharynx Clear/Moist, Dentition Intact, Facial Symmetry, Neck Supple, Neck: Trachea Midline, No JVD and No Thyromegaly, no Bruits
Respiratory: coarse to auscultation bilaterally with normal lung excursion,right chest tube with blood effluent
Cardiac: S1/S2 and Regular Rate/Rhythm tachycardia
Breast: Deferred by me
Abdomen: Soft, Nontender, Nondistended, Normal Bowel Sounds and No Hepatosplenomegaly
Rectal: Deferred by Provider
Genito-urinary: No Costovertebral Tenderness
Extremities: No Clubbing, No Cyanosis and No Edema
Skin: No Rash or open lesions
Neuro: Nonfocal/Grossly Intact, CN II-XII (Intact) and Strength (Musculoskeletal exam 5 out of 5 both upper and lower extremities)
Hematologic/Lymphatic: No Cervical Lymphadenopathy, No Submandibular Lymphadenopathy and No Supraclavicular Lymphadenopathy
Psych: Mood/afflect pleasant, Insight/judgement good and Appropriate
Vascular: plus 2 pedal and radial pulses
Data Reviewed
-
Labs: Labs Reviewed by me (BMP CBC)
Assessment/Plan
-
Impression:
Hyponatremia
Acute hypoxic respiratory failure with right large empyema status post right chest tube placement
Pulmonary embolism
Hypertension
BPH
Strep viridans bacteremia
Plan:
Hyponatremia:
- fluid restriction 1200cc
- Urine osmolality of 905 consistent with SIADH, likely potentiated by underlying pulmonary process and complicated by low blood pressure
- Will provide 15 mg of samsca
- Stopping SSRI would help
[2025-09-10] MEDS: SENOKOT-S PO ×2 (10:26→19:43)
[2025-09-10] MEDS: MUCINEX 1200 MG PO ×2 (10:26→19:46)
[2025-09-10] MEDS: PROTONIX 40 MG PO ×2 (10:26→19:46)
[2025-09-10] MEDS: TESSALON PERLES 200 MG PO ×2 (10:26→19:47)
[2025-09-10] MEDS: LIPITOR 20 MG PO (10:26)
[2025-09-10] MEDS: SAMSCA 15 MG PO (10:27)
[2025-09-10 10:50] LABS: Hematocrit 32.8 % (39.0-52.0); Hemoglobin 11.0 g/dL (13.0-18.0); Mean Corp Hgb Conc. 33.5 g/dL (33.0-37.0); Mean Corpuscular Volume 81.4 fL (80.0-94.0); Platelet Count 345 10^3/uL (130-400); Red Cell Dist. Width 14.6 % (11.5-14.5)
[2025-09-10 10:54] LABS: INR 1.21; PT 15.4 Sec (11.4-14.6)
[2025-09-10 10:55] LABS: APTT 35.6 Sec (23.4-35.0)
[2025-09-10 11:08] LABS: ALT (SGPT) 27 U/L (0-50); AST (SGOT) 31 U/L (17-59); Albumin 2.1 g/dl (3.5-5.0); Alkaline Phosphatase 95 U/L (38-126); Blood Urea Nitrogen 24 mg/dl (9-20); Calcium 7.3 mg/dl (8.4-10.2); Carbon Dioxide 21 mmol/L (22-30); Chloride 94 mmol/L (98-107); Estimated Creatinine Clearance 91 ml/min; Glucose 121 mg/dl (70-99); Magnesium 2.1 mg/dl (1.6-2.3); Potassium 5.0 mmol/L (3.5-5.1); Sodium 124 mmol/L (135-145); Total Protein 4.5 g/dl (6.3-8.2); eGFR > 60.00
--- NOTE | 2025-09-10 11:29 | W.PN.HOSP.TC ---
Today's Communication/Plan
-
Discussed respiratory status with can labeler and ID
Recommendation to cont Abx
Hold Zoloft and start FR
follow BMP
Assessment / Plan
Assessment / Plan
60yo M with PMHx of anxiety, HTN, HLD, atopic d/o, Hx of L empyema, MARGARET mass s/p bronchoscopy and biopsy in 2022 neg for malignant cells came after developing worsening SOB and excessive sputum while travelin to [place]. Had recently diagnozed with
bronchitis and treated with oral Abx as per his PCP. Found moderate loculated R pleural effusion and leukocytosis concerning for pneumonia with empyema and pulmonary embolism
A/P:
#Acute hypoxic respiratory failure (tachypnea, hypoxia 2/2 sepsis (leukocytosis, hypoxia, R pleural effusion) due to Pneumonia, CAP with R sided empyema
Pleural fluid with singh purulence, cont chest tube, tPa and repositioning due to loculation as per pulm
Cx with Viridans strep, GPC and GNR - pending identification - follow ID - Unasyn as of 09/07/25
Bcx NTD
Vanco/Zosyn
Pulm consult: s/p tPa with successful improvement in output, planned for 6 total treatments
IRAD for chest tube, labs to be ordered - added culture
Sputum Cx not provided
legionella and s.pneumonia urinary Ag neg
Wean off O2
Igg minimally decreased, which is not specific, outpatient [facility] certified concierge advised
Incentive spirometry
PAtient tachypneic and tachycardic overnight on 09/10/25, seems not due to pain but complains of inability to take a deep breath. CT showed worsening consolidation. labs with leukemoid reaction
#L acute provoked pulmonary embolism
most likely 2/2 long flight
no signs of RH strain on CT
Lovenox and eventual DOAC for 3-6mo and outpatient hem w/u for hypercoagulability - patient verbalized understanding of the instructions
Echo: normal biventricular size and function without regional wall motion abnormality,
LE US neg for DVT
#dilated aortic root
4.4cm
repeat Echo in 6-12 mo
#Fatty liver
low fat diet
cont statin
#Hyperkalemia
unclear reason
start low potassium diet
Follow BMP, hold ACEi
#Hyponatremia
possible ADH activity with pain
improve pain mgmt
no signs of adrenal insufficiency
Uosm 902
Stop Zoloft
FR 1200ml
Nephro consult
Check aldosterone, AR ratio
#Elevated alk.phos
no overt RUQ abd pain
follow LFT
check GGT
#Essential HTN
#GERD
#HLD
#Atopic D/O
cont home meds except of above
#Hypocalcemia
replete
#PReDM
#Obesity
#Metabolic syndrome
Low fat diet
BMI 35.1
low carb diet advised
loose weight
DVT ppx Lovenox
Full code
I have spent at least 59min critical care time reviewing chart, test results, communication with consultants and providing direct patient care
Anticipated Discharge: > 48 hours
Subjective/Interval History
-
Date of Service: September 10, 2025
Objective Data
-
Labs:
Laboratory Results
09/10/25 09/10/25
04:34 10:24
WBC 29.1 H 50.8 H*
Hgb 12.1 L 11.0 L
Hct 35.6 L 32.8 L
Plt Count 308 345
PT 15.4 H
INR 1.21
APTT 35.6 H
Sodium 126 L 124 L
Potassium 4.7 5.0
Chloride 96 L 94 L
Carbon Dioxide 25 21 L
BUN 19 24 H
Creatinine 0.8 1.1
Glucose 105 H 121 H
Calcium 7.5 L 7.3 L
Total Bilirubin 0.5 0.6
AST 24 31
ALT 29 27
Alkaline Phosphatase 108 95
Vital Signs:
Vital Signs
Temp Pulse Resp BP Pulse Ox
98.7 F 138 23 93/56 93
09/10/25 08:35 09/10/25 08:30 09/10/25 08:30 09/10/25 08:30 09/10/25 08:30
I&O
09/09/25 09/10/25 09/11/25
06:59 06:59 06:59
Intake Total 2161 / 2161 1180 / 1180
Output Total 2795 / 2795 2615 / 2615
Balance -634 / -634 -1435 / -1435
Review of Systems
-
History Source: Patient
All other systems: Reviewed and negative
Respiratory: Reports Trouble Breathing
Abdomen/GI: Reports No Symptoms
Physical Exam
-
General: Appears in Distress
HEENT: Normocephalic, Atraumatic and Moist Mucous Membranes
Respiratory: Accessory Resp Muscle Use, Decreased Breath Sounds and Chest Tubes
Cardiac: Regular Rhythm and Tachycardic
GI: Soft, Nontender, Nondistended and Normal Bowel Sounds
Musculoskeletal: No Clubbing, No Cyanosis and No Edema
Neuro: Awake, Alert, Oriented and AO x 3
Psych: Calm
[2025-09-10] MEDS: ZOLOFT PO (11:31)
[2025-09-10 11:44] LABS: Absolute Neutrophils -Man Diff 43.1 10^3/uL (1.4-6.5)
[2025-09-10 11:46] LABS: Platelets Checked Yes
[2025-09-10 11:47] LABS: Anisocytosis 1+; Hypochromasia 1+; Normal RBC Morphology No; Ovalocytes Slight; Poikilocytosis Slight; Polychromasia Slight; Total Cells Counted 100
[2025-09-10] MEDS: LOVENOX 105 MG SC (12:40)
[2025-09-10] MEDS: CALCIUM GLUCONATE 100 IV (12:40)
[2025-09-10 14:10] LABS: Venous Blood Gas B.E. -4.5 mmol/L (-4 to +4); Venous Blood Gas O2 Sat % 89.6 %
--- NOTE | 2025-09-10 14:18 | W.PN.PUL3 ---
Today's Communication / Plan
-
Given that there is a persistent right lower lobe loculated fluid collection which does not seem to be in connection to current chest tube, he will need subsequent chest tube tomorrow
Keep NPO p MN
Hold lovenox
Keep current chest tube on suction - hold off for any additional tPA/dornase instillations at this time (received his 4th and 5th doses yesterday)
Monitor chest tube output
CXR tomorrow
Continue Unasyn
Mucinex + Tessalon Perles
Continue scheduled DuoNebs given wheezing on exam on 09/09 - -> decrease to BID given his tachycardia
Nephro consulted for his low Na
Pulmonary service will continue to follow along
Assessment
-
A 60 year old male with a PMH of prior left sided empyema (2019), hypertension, hyperlipidemia, GERD and anxiety who started having significant shortness of breath upon exertion which worsened with any activity during a trip to [facility]. Patient
contacted Dr. Trinidad who advised him to return back to the [place] given prior history of empyema. Upon arrival to the ED, patient was found to be afebrile with tachycardia (HR 130), tachypnea (RR 24-30) and leukocytosis (WBC 31.3), O2 90% on room air
which only improved to 90-93% with 6 L O2 supplementation. Trops negative. CTA chest showed moderate to large right-sided pleural effusion with multiple loculations with confluent parenchymal opacities within the right lung likely compressive
atelectasis however underlying pneumonia also possible. Also a suspicious pulmonary embolism involving a left lower lobe pulmonary artery. Patient was stared on Zosyn and Vancomycin in the ED, and given albuterol, ipratropium, Decadron and started
on heparin drip for the pulmonary embolism. Patient was subsequently admitted to the ICU, however after drainage/chest tube placement on 09/06/25, was deemed stable for downgrade to IMU. Given significant shortness of breath after first
instillation of tPA/dornase through chest tube, he was re-upgraded back to ICU.
Impression:
#Multiloculated collections due to empyema with right sided pneumonia s/p chest tube (placed 09/06 by IR)
#Submassive pulmonary artery involving left lower lobe without evidence of RV strain (PESI score - class III - -> 3.2 - 7.1% 30 day mortality)
#Acute respiratory failure with hypoxia due to above in setting acute PE
#Chronic hyponatremia
#Small hiatal hernia
#Former tobacco smoker (no evidence of COPD per PFTs, with FEV1/FVC 80 (105% predicted) via PFT from April 2023)
#History of hypertension/hyperlipidemia
#History of Iyer's esophagus
#History of left-sided pneumonia with empyema s/p chest tube (July 2020 - pleural fluid Cx grew Streptococcus mitis at the time)
Plan:
- IR consulted and patient underwent chest tube insertion on 09/06
- Pleural fluid analysis consistent with empyema with pH 6.5, LDH >10,000, glucose <30, and fluid WBC 248,300 which was monocyte predominant
- Pleural fluid culture grew Streptococcus viridans
- Pleural fluid cytology is still pending
- Patient has undergone 5 total sessions of lytics instilled through chest tube (last dose given yesterday evening on 09/09)
- This morning per hospitalist, patient appeared to be in more shortness of breath and considering his CXR which showed an interval increase in size of right lower lobe opacification, CT chest obtained, showing a large right lower lobe consolidation
with a large (known) loculated right-sided pleural effusion. The overall size of the multiloculated fluid collection in the right hemithorax has actually decreased in size, although the posterior component has seemed to increase compared to prior
CTA chest on 09/05/2025. The posterior pleural fluid collection now measures 9.5 x 13.6 x 12.9 cm containing thick septations and possibly internal hemorrhage. There was very minimal amount of pleural air in the superior and anterior right pleural
space
- CT chest results discussed with IR, and we have agreed that he will need a new chest tube placed into the right lower lobe posterior loculated fluid collection
- Keep NPO past midnight
- Continue existing chest tube as well, keep at -00qmH9H suction, monitoring output in 12 hour intervals, making sure to juan the Pleur-evac so we can keep track of output rate
- ID consulted; considering that he has had an empyema approximately 5 years ago, immunoglobulins checked and showed mildly reduced IgG at 640 (normal is 700-1600 mg/dL); IgG subclasses pending
- Continue with antibiotics - -> currently on Unasyn s/p IV vancomycin - -> since fluid culture is growing alpha-hemolytic strep, IV vancomycin stopped
- Follow-up blood cultures (NGTD); MRSA swab negative
- Mucolytics + short-course of tessalon perles given he has been having a harsh cough s/p tPA/dornase instillation since 09/07
- Continue scheduled DuoNebs given the wheezing heard on exam - -> decrease to BID given his tachycardia and no wheezing appreciated today on exam (09/10)
- prn nebulized bronchodilators
- Given that the chest tube drainage had been thick, chest tube lytics started with tPA + dornase instillation - --> s/p 4th and 5th instillations on 09/09 - -> no additional installations needed at this time given CT chest findings from today
(09/10)
- Pain contro
- Repeat CXR again tomorrow with plan for eventual repeat CT chest to assess for improvement/resolution of empyema
- Trend WBC and monitor temperature curve
- Continue with therapeutic LMWH for his PE - recommend case management consult to assess affordability of NOAC, preferably Eliquis
- I will hold his Lovenox tonight and tomorrow morning in preparation for new chest tube on 09/11 via IR
- Lower extremity duplex from 09/06 showed no evidence for DVT
- Echo from 09/06/2025 showed normal biventricular size and systolic function with trace TR
- Eventual outpatient hematology evaluation for hypercoagulable workup and to assess duration of AC needed
- Maintain SpO2 >90-94% using supplemental O2, titrating down dose as tolerated
- Of note, he needed BiPAP s/p tPA/dornase instilled through chest tube on 09/07, and this is what led us to upgrading him back to ICU level of care as he has significant shortness of breath with right-sided chest pain and then was becoming hypoxic
and BiPAP was needed due to increased work of breathing
- He has remained stable since 09/08, with no requirements for BiPAP and no high oxygen requirements
- Aspiration precautions
- Management of hyponatremia per hospitalist team; nephrology now consulted
- Maintain MAP>65
- Replete electrolytes with K>4, Mg>2
- Maintain euglycemia with goal BG 140-180; HbA1C: 6.2 on 09/07/2025
- Trend H/H and transfuse if needed to keep Hb>7g/dL; keep plt>50k (given presence of chest tube)
- Incentive spirometer encouraged 10x per hour for at least 4 hrs a day
- DVT ppx: Therapeutic LMWH now on hold given impending chest tube; SCDs for now
Pulmonary service will continue to follow along. Once patient is discharged, we will arrange for follow-up again with Dr. Trinidad (last visit 10/08/2023)
Data:
CTA Chest 09/05/2025:
Moderate to large right pleural effusion with multiple loculations. Given the patient's clinical history, findings raise concern for empyema.
Confluent areas of parenchymal opacity within the right lung, most suggestive of compressive atelectasis given the morphologic appearance. However, underlying pneumonia is also possible.
Findings considered highly suspicious for pulmonary embolism involving the left lower lobe pulmonary artery, as described above. Most proximal branching point is the left lower lobe lobar pulmonary artery.
No convincing evidence for right-sided pulmonary embolism.
No significant left pleural effusion.
Fatty infiltration the liver.
CT chest with IV contrast 09/10/2025:
1. MODERATE to LARGE VERY COMPLEX LOCULATED RIGHT PLEURAL EFFUSION in the inferior and posterior right pleural space (either infectious or malignant in etiology).
2. Large right lower lobe airspace consolidation and central bronchial segmental occlusion in the right lower lobe most suggestive of SEVERE RIGHT LOWER LOBE PNEUMONIA.
3. Right pleural chest tube in the inferolateral right pleural space.
4. Mild groundglass airspace opacity in the left upper and lower lobes (either mild pneumonia or atelectasis).
5. Small pericardial effusion.
6. Mild mediastinal lymphadenopathy.
7. Moderate calcific atherosclerotic plaque in the coronary arteries.
8. Small hiatal hernia.
Total time spent today was 52 minutes for this encounter. Time includes reviewing laboratory test/imaging results, reviewing pertinent medical records, obtaining and reviewing medical history, performing an appropriate exam, ordering medications,
tests and procedures. Time also includes documentation of this encounter, coordinating patient care and communicating with other healthcare professionals. Total time does not include separately billed tests performed on this date of service.
Subjective Data
-
Date of Service:
Date of Service: September 10, 2025
Chief Complaint: Pulmonary Follow Up
Subjective:
Patient seen and evaluated this morning. Afebrile overnight. Appears more lethargic today and is tachycardic. Worsening leukocytosis today as well. Sodium slightly lower today to 124. Chest tube was blocked last night and had to be stripped and
then drained more after that. There has been 2165 cc over last 24 hours. Patient's heart rate currently 133, BP 89/63, and he is on 4 L/min via midflow NC saturating 97%
Review of Systems
General: Other
Objective Data
Data Reviewed
Vital Signs / I&O / Oxygen:
Vital Signs
Temp Pulse Resp BP Pulse Ox
98.8 F 133 23 93/56 97
09/10/25 11:58 09/10/25 14:09 09/10/25 14:09 09/10/25 08:30 09/10/25 14:09
Intake and Output
09/09/25 09/10/25 09/11/25
06:59 06:59 06:59
Intake Total 2161 / 2161 1180 / 1180
Output Total 2795 / 2795 2615 / 2615
Balance -634 / -634 -1435 / -1435
SaO2 97
Nasal Cannula flow liters per 4
minute
Physical Exam
General: Respiratory Distress (negative), Comfortable, Chills (negative) and Other (Appears somnolent)
HEENT: Normocephalic, Anicteric and Other (Thick neck)
Cardiovascular: S1-S2 and Peripheral Edema (negative)
Respiratory: Wheeze (negative), Crackles (negative), Rhonchi (Right hemithorax) and Chest Tube (Right hemithorax, on -20 cmH2O with no airleak)
GI: Soft, Distended (Abdominal obesity), Non Tender and Normal Bowel Sounds
Neurology: Tremors (negative) and Other (Somnolent but easily arousable to voice and answering all questions appropriately)
Skin: Warm, Dry, Cyanosis (negative) and Jaundice (negative)
Labs/Micro/Reports
Lab Data
09/10/25 10:24
09/10/25 10:24
Laboratory Results
09/10/25
10:24
PT 15.4 H
INR 1.21
APTT 35.6 H
Microbiology
09/08/25 10:59 Sputum Respiratory Culture - Final
Usual Respiratory Cheri
09/08/25 10:59 Sputum Gram Stain - Final
09/05/25 20:45 Blood/Venous Blood Culture - Preliminary
No Growth in 4 days- Final report to follow
09/05/25 20:45 Blood/Venous Blood Culture - Preliminary
No Growth in 4 days- Final report to follow
09/06/25 14:24 Thoracentesis Fluid Body Fluid Culture - Final
Viridans Streptococcus Group
09/06/25 14:24 Thoracentesis Fluid Gram Stain - Final
09/06/25 14:24 Pleural Fluid Acid Fast Bacilli Smear - Preliminary
09/06/25 14:24 Pleural Fluid Acid Fast Bacilli Culture - Preliminary
--- NOTE | 2025-09-10 17:37 | PTCARENOTE ---
Pt is Ox3 but more lethargic today. Sinus tach on tele with rates going into the 140's with exertion but largely staying in the 130's for most of the day. Pt also appearing more short of breath at the start of the shift. aware and pt was taken
for a stat chest CT and repeat labs. Pulm recommends placement of a second chest tube on the R to be done by IR tomorrow.
--- NOTE | 2025-09-10 20:00 | PTCARENOTE ---
Resumed care of pt laying in bed AAOx3. Pt drowsy but easily arousable and conversant. Pt reports pain 8/10 at right chest tube site, PRN Pain medication administered as ordered. HR in the 120's-130's in ST on the monitor. POX 94% on 4LO2 Mid Flow
NC. Lungs dec with scattered fine expiratory wheezes. BACA. + bowel, round obese abd. Pt reports loose stools x2 today and refused bowel regimen. PT using urinal when needed, dark delfino urine noted. Palpable peripheral pulses. Trace LE edema. B/L AC
int capped, left hand int capped. Lab work obtained as ordered. Pt positioned in bed per comfort. No issues to report at this time. Call bhat in reach. Will continue to monitor.
[2025-09-10 20:43] LABS: Blood Urea Nitrogen 32 mg/dl (9-20); Calcium 6.8 mg/dl (8.4-10.2); Carbon Dioxide 20 mmol/L (22-30); Chloride 92 mmol/L (98-107); Estimated Creatinine Clearance 83 ml/min; Glucose 204 mg/dl (70-99); Potassium 4.7 mmol/L (3.5-5.1); Sodium 119 mmol/L (135-145); eGFR > 60.00
--- NOTE | 2025-09-10 21:07 | W.PN.UPDATE ---
Update Note
Progress Note Update
2100- Patient's sodium dropped to 119 from 124, Dr. Hooker chart writer updated. Recommendations received: start hypertonic 3% at 30ml/hr x1 250cc bag and recheck labs in the AM.
Discussed recent labs, chart writer recommendations, patient intermittently SOB, tachycardic, chest tube continues to drain, and pending additional chest tube placement tomorrow by IR. Dr. Lemons assembler tester agreed to re-upgrade patient for
continued close monitoring as his symptoms of liabile and monitor hyponatremia. Orders placed for ICU and RN updated on plan of care.
[2025-09-10] MEDS: SODIUM CHLORIDE 3% 250 IV (21:21)
--- NOTE | 2025-09-10 21:30 | PTCARENOTE ---
Lab results reviewed with Sony VENTURA. Orders obtained. PT upgraded to ICU level care. 3%NaCl now infusing @30ml/hr as ordered. NO other changes in assessment noted at this time. Will continue to monitor.
[2025-09-11] VITALS (30 sets, daily range): BP systolic 106–146; BP diastolic 68–104; PULSE 120; O2SAT 96; BMI 34.4
[2025-09-11] MEDS: DILAUDID 0.5 MG IV ×2 (01:35→21:55)
[2025-09-11] MEDS: UNASYN IV ×4 (01:35→19:37)
[2025-09-11 04:49] LABS: ALT (SGPT) 69 U/L (0-50); AST (SGOT) 98 U/L (17-59); Albumin 2.0 g/dl (3.5-5.0); Alkaline Phosphatase 84 U/L (38-126); Blood Urea Nitrogen 26 mg/dl (9-20); Calcium 6.8 mg/dl (8.4-10.2); Carbon Dioxide 25 mmol/L (22-30); Chloride 96 mmol/L (98-107); Estimated Creatinine Clearance 111 ml/min; Glucose 120 mg/dl (70-99); Potassium 4.5 mmol/L (3.5-5.1); Sodium 124 mmol/L (135-145); Total Protein 4.4 g/dl (6.3-8.2); eGFR > 60.00
[2025-09-11 04:50] LABS: Hematocrit 26.0 % (39.0-52.0); Hemoglobin 8.9 g/dL (13.0-18.0); Mean Corp Hgb Conc. 34.2 g/dL (33.0-37.0); Mean Corpuscular Volume 78.3 fL (80.0-94.0); Platelet Count 324 10^3/uL (130-400); Red Cell Dist. Width 14.0 % (11.5-14.5)
[2025-09-11 05:49] LABS: Nucleated Red Blood Cells % 0.1 % (-)
[2025-09-11] MEDS: CALCIUM GLUCONATE 130 MG IV (05:57)
--- NOTE | 2025-09-11 07:00 | PTCARENOTE ---
Received patient in sleep, arousable to voice, A&Ox3, ST in 110s, BP WNL, 4L Midflow, Right side chest tube to low continuous -20 suction, NPO, continent with urinal. Pending 2nd chest tube insertion in IR this morning.
[2025-09-11] MEDS: MUCINEX PO (08:09)
[2025-09-11] MEDS: PROTONIX PO (08:09)
[2025-09-11] MEDS: SENOKOT-S PO (08:09)
[2025-09-11] MEDS: TESSALON PERLES PO (08:09)
[2025-09-11] MEDS: LIPITOR PO (08:09)
[2025-09-11] MEDS: DUONEB 3 ML INH ×2 (08:12→20:55)
--- NOTE | 2025-09-11 08:22 | W.PN.INTV ---
Today's Communication / Plan
Recommendations
- Resume Lovenox subcu tonight
- Start normal saline infusion at 100 mL/h, follow-up BMP at 10 PM
- Follow-up chest x-ray in a.m.
- Hold additional tPA/DNase intrapleural lead due to sanguinous output
Assessment
-
A 60 year old male with a PMH of prior left sided empyema (2019), hypertension, hyperlipidemia, GERD and anxiety who started having significant shortness of breath upon exertion which worsened with any activity during a trip to [facility]. Patient
contacted Dr. Trinidad who advised him to return back to the [place] given prior history of empyema. Upon arrival to the ED, patient was found to be afebrile with tachycardia (HR 130), tachypnea (RR 24-30) and leukocytosis (WBC 31.3), O2 90% on room air
which only improved to 90-93% with 6 L O2 supplementation. Trops negative. CTA chest showed moderate to large right-sided pleural effusion with multiple loculations with confluent parenchymal opacities within the right lung likely compressive
atelectasis however underlying pneumonia also possible. Also a suspicious pulmonary embolism involving a left lower lobe pulmonary artery. Patient was stared on Zosyn and Vancomycin in the ED, and given albuterol, ipratropium, Decadron and started
on heparin drip for the pulmonary embolism. Patient was subsequently admitted to the ICU, however after drainage/chest tube placement on 09/06/25, was deemed stable for downgrade to IMU. Given significant shortness of breath after first
instillation of tPA/dornase through chest tube, he was re-upgraded back to ICU.
#1. Right-sided loculated empyema with severe right lower lobe pneumonia.
- Strep viridans noted in pleural fluid cultures
- S/p IR guided chest tube placement on 09/06, tPA/DNase given x5. Minimal drainage now, 180 ml in [facility].
- F/u CT with large posterior collection, s/p Chest tube #2 placed 09/11, 800 ml sanguinous output in [facility]. No air leak
- Depending upon clinical course, might need surgical evaluation for decortication
- ID consulted; considering that he has had an empyema approximately 5 years ago, immunoglobulins checked and showed mildly reduced IgG at 640 (normal is 700-1600 mg/dL); IgG subclasses pending. Check HIV status.
- F/u CXR in AM.
#2. Acute pulmonary Embolism involving left lower lobe without evidence of RV strain
- Suspect provoked in the setting of recent travel as well as active infection/empyema
- Lovenox was held for the tube placement,
#3. Acute respiratory failure with hypoxia due to above in setting acute PE and pneumonia/empyema
-Supplemental O2 as needed
#4. Acute on chronic hyponatremia
-Continue to hold Zoloft, as SSRI can contribute
-Likely acute pulmonary infection contributing. Urine sodium 13, osmolality 905, ? Intra vascular volume depletion
-Status post 3% normal saline overnight 09/11, sodium improved to 124 this morning.
- Start NS infusion. serial labs.
Other medical diagnoses:
- Small hiatal hernia
- Former tobacco smoker (no evidence of COPD per PFTs, with FEV1/FVC 80 (105% predicted) via PFT from April 2023)
- History of hypertension/hyperlipidemia
- History of Iyre's esophagus
- History of left-sided pneumonia with empyema s/p chest tube (July 2020 - pleural fluid Cx grew Streptococcus mitis at the time)
Critical Care time [58] mins -- The patient is admitted for acute critical illness for the treatment of vital organ failure and/or prevention of further life-threatening conditions. Total care includes time spent in review of history, physical exam,
medications, hemodynamic/ventilator parameters, laboratory data, imaging and discussion with house staff, pharmacy, respiratory therapy, sound effects person, and nursing.
Data:
CTA Chest 09/05/2025:
Moderate to large right pleural effusion with multiple loculations. Given the patient's clinical history, findings raise concern for empyema.
Confluent areas of parenchymal opacity within the right lung, most suggestive of compressive atelectasis given the morphologic appearance. However, underlying pneumonia is also possible.
Findings considered highly suspicious for pulmonary embolism involving the left lower lobe pulmonary artery, as described above. Most proximal branching point is the left lower lobe lobar pulmonary artery.
No convincing evidence for right-sided pulmonary embolism.
No significant left pleural effusion.
Fatty infiltration the liver.
CT chest with IV contrast 09/10/2025:
1. MODERATE to LARGE VERY COMPLEX LOCULATED RIGHT PLEURAL EFFUSION in the inferior and posterior right pleural space (either infectious or malignant in etiology).
2. Large right lower lobe airspace consolidation and central bronchial segmental occlusion in the right lower lobe most suggestive of SEVERE RIGHT LOWER LOBE PNEUMONIA.
3. Right pleural chest tube in the inferolateral right pleural space.
4. Mild groundglass airspace opacity in the left upper and lower lobes (either mild pneumonia or atelectasis).
5. Small pericardial effusion.
6. Mild mediastinal lymphadenopathy.
7. Moderate calcific atherosclerotic plaque in the coronary arteries.
8. Small hiatal hernia.
Subjective Dataa
Subjective Data
Date of Service:
Date of Service: September 11, 2025
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
Subjective:
Comfortably sitting in chair in no acute distress.
Review of Systems
Genitourinary: Other (No new symptoms reported.)
Objective Data
Data Reviewed
Vital Signs / I&O / Oxygen:
Vital Signs
Temp Pulse Resp BP Pulse Ox
98.2 F 114 20 118/68 95
09/11/25 07:21 09/11/25 08:14 09/11/25 08:14 09/11/25 06:00 09/11/25 08:14
Intake and Output
09/10/25 09/11/25 09/12/25
06:59 06:59 06:59
Intake Total 1180 / 1180 810 / 810
Output Total 2615 / 2615 1544 / 1544
Balance -1435 / -1435 -734 / -734
SaO2 95
Nasal Cannula flow liters per 4
minute
Physical Exam
General: Respiratory Distress (negative), Pain (Right hemithorax at chest tube site), Chills (negative) and Sweats (negative)
HEENT: Normocephalic, Anicteric and Moist Mucous Membranes
Cardiovascular: S1-S2 and Peripheral Edema (negative)
Respiratory: Wheeze, Crackles (Bilaterally (R >L)), Rhonchi (Bilaterally), Chest Tube (Right hemithorax with no airleak on -20 cmH2O suction, [address] ) and Other (Decreased breath sounds on the right side)
GI: Soft, Distended (Abdominal obesity), Non Tender and Normal Bowel Sounds
Neurology: Awake, Alert, Oriented and Tremors (negative)
Skin: Warm, Dry, Jaundice (negative) and Rash (negative)
Labs/Micro/Reports
Lab Data
09/11/25 03:54
09/11/25 03:54
Laboratory Results
09/10/25
10:24
PT 15.4 H
INR 1.21
APTT 35.6 H
Microbiology
09/05/25 20:45 Blood/Venous Blood Culture - Final
No Growth - Final Report
09/05/25 20:45 Blood/Venous Blood Culture - Final
No Growth - Final Report
09/08/25 10:59 Sputum Respiratory Culture - Final
Usual Respiratory Cheri
09/08/25 10:59 Sputum Gram Stain - Final
09/06/25 14:24 Thoracentesis Fluid Body Fluid Culture - Final
Viridans Streptococcus Group
09/06/25 14:24 Thoracentesis Fluid Gram Stain - Final
09/06/25 14:24 Pleural Fluid Acid Fast Bacilli Smear - Preliminary
09/06/25 14:24 Pleural Fluid Acid Fast Bacilli Culture - Preliminary
--- NOTE | 2025-09-11 09:26 | W.PN.NEPH.PH ---
Today's Communication / Plan
-
samsca
Assessment/Plan
-
Impression:
Hyponatremia
Acute hypoxic respiratory failure with right large empyema status post right chest tube placement
Pulmonary embolism
Hypertension
BPH
Strep viridans bacteremia
Plan:
continue FR 40oz/d
samsca again today
serial BMP later
for 2nd chest tube
-
-
Date of Service: September 11, 2025
CC / HPI / ROS
-
Chief Complaint:
hyponatremia
History of Present Illness:
Na 124 with samsca, 3%
BP low stable, no pressors
right CT in place, still with pain
Review of Systems:
right sided pain
mild SOB
thirsty
Labs
-
Labs:
WBC 52.0 10^3/uL (4.8-10.8) H* 09/11/25 03:54
RBC 3.32 10^6/uL (4.70-6.10) L 09/11/25 03:54
Hgb 8.9 g/dL (13.0-18.0) L 09/11/25 03:54
Hct 26.0 % (39.0-52.0) L 09/11/25 03:54
Plt Count 324 10^3/uL (130-400) 09/11/25 03:54
Sodium 124 mmol/L (135-145) L 09/11/25 03:54
Potassium 4.5 mmol/L (3.5-5.1) 09/11/25 03:54
Chloride 96 mmol/L (98-107) L 09/11/25 03:54
Carbon Dioxide 25 mmol/L (22-30) 09/11/25 03:54
BUN 26 mg/dl (9-20) H 09/11/25 03:54
Creatinine 0.9 mg/dL (0.7-1.3) 09/11/25 03:54
eGFR > 60.00 09/11/25 03:54
Glucose 120 mg/dl (70-99) H 09/11/25 03:54
Calcium 6.8 mg/dl (8.4-10.2) L* 09/11/25 03:54
Phosphorus 3.7 mg/dl (2.5-4.5) 09/10/25 04:34
Dap-J-Mkjujksjrol Pept 339 pg/ml 09/05/25 19:55
Albumin 2.0 g/dl (3.5-5.0) L 09/11/25 03:54
Physical Exam
-
Vital Signs:
Vital Signs
Temp Pulse Resp BP Pulse Ox
98.2 F 114 20 118/68 95
09/11/25 07:21 09/11/25 08:14 09/11/25 08:14 09/11/25 06:00 09/11/25 08:14
Cardiovascular:: Regular rate and rhythm
Respiratory:: Bilateral: Coarse
Lung Excursion:: Normal
Abdomen:: Nontender and Soft
Bowel Sounds:: Normal
Extremity Edema:: None: Bilateral:
--- NOTE | 2025-09-11 09:41 | CM ---
Patient seen at bedside in icu. Patient plan is home when medically appropriate but he states plan is for 2nd chest tube today. Patient does not have home O2. Patient possibly would benefit from Home VN pending discharge plan/medical treatment plan.
CM will continue to follow for discharge planning needs.
Plan; home with VN pending medical treatment plan
--- NOTE | 2025-09-11 10:03 | W.PN.ID1 ---
Date of Service
Date of Service: September 11, 2025
Today's Communication
continue unasyn
Assessment / Plan
Right sided empyema
- Cultures with Strep. viridans
- Hx of (L) sided empyema (07/2020) - resolved on follow up imaging
PE left lower lobe pulmonary artery
Leukocytosis; ongoing
Recommendations:
- swallow evaluation nonrevealing, immunoglobulins IgM, IgA - WNL, IgG borderline low; IgG subclass is in progress, HIV in progress, a1c 6.2
- blood cultures : finalized negative
- Pleural fluid cultures with Strep. viridans.
- Continue unasyn.
- follow chest tube output - remains high
- second chest tube is planned
- Follow white count and temperature curve
����������������������������������������������������������
Chief Complaint
-: Other (Right empyema secondary to Strep. viridans)
Subjective / Review of Systems
afebrile
bp stabilized
HR decreasing to the 110 range from 130s
moved to ICU yesterday for 3% NaCl
plan for second chest tube on the right today
complains of thirst
Vital Signs / Physical Exam
Vital Signs
Vital Signs
Temp Pulse Resp BP Pulse Ox
98.1 F 117 17 126/83 95
09/11/25 09:50 09/11/25 09:50 09/11/25 09:50 09/11/25 09:50 09/11/25 09:50
Physical Exam
Constitutional: No Acute Distress
Cardiovascular: Regular Rate and S1/S2; Negative Murmur or Rub
Pulmonary: Clear and Symmetric; Negative Wheezes or Rales
Gastrointestinal: Soft, Non Tender, Non Distended and Normal Bowel Sounds
Skin: Warm and Dry; Negative Rash or Jaundice
Objective Data
Lab Data
Lab Results
09/11/25 03:54
PT 15.4 Sec (11.4-14.6) H 09/10/25 10:24
INR 1.21 09/10/25 10:24
APTT 35.6 Sec (23.4-35.0) H 09/10/25 10:24
Estimated Creat Clear 111 ml/min 09/11/25 03:54
Lactic Acid 1.9 mmol/L (0.7-2.0) 09/05/25 20:45
Total Bilirubin 0.4 mg/dl (0.2-1.3) 09/11/25 03:54
GGT 39 U/L (15-73) 09/06/25 09:33
AST 98 U/L (17-59) H 09/11/25 03:54
ALT 69 U/L (0-50) H 09/11/25 03:54
Alkaline Phosphatase 84 U/L (38-126) 09/11/25 03:54
Most recent labs reviewed.
Micro Results:
09/05/25 20:45 Blood Culture - Final
Blood/Venous No Growth - Final Report
09/05/25 20:45 Blood Culture - Final
Blood/Venous No Growth - Final Report
09/08/25 10:59 Respiratory Culture - Final
Sputum Usual Respiratory Cheri
Gram Stain - Final
09/06/25 14:24 Body Fluid Culture - Final
Thoracentesis Fluid Viridans Streptococcus Group
Gram Stain - Final
09/06/25 14:24 Acid Fast Bacilli Smear - Preliminary
Pleural Fluid Acid Fast Bacilli Culture - Preliminary
09/06/25 14:24 Fungal Smear - Pending
Pleural Fluid Fungal Culture - Pending
09/06/25 10:33 Legionella Urinary Antigen - Final
Urine Negative for Legionella pneumophila Serogroup 1 antigen.
A negative result does not rule out the possiblity of
Legionella infection due to other serogroups or species of
Legionella. Clinical correlation is recommended.
Streptococcus pneumoniae Antigen (M - Final
Negative for Streptococcus pneumoniae antigen.
A negative result does not exclude infection with
Streptococcus pneumoniae. Clinical correlation is
recommended.
09/06/25 03:05 Nasal Screen MRSA (PCR) - Final
Nose MRSA not detected - performed by PCR methodology.
Imaging:
09/05/2025 CT chest PE study: moderate to large right pleural effusion with multiple loculations concerning for empyema. Confluent areas of parenchymal opacity within the right lung, most suggestive of compressive atelectasis. Please see full
dictation for additional detail.
09/11 CXR LARGE COMPLEX LOCULATED RIGHT PLEURAL EFFUSION (empyema) in the inferior and posterior right pleural space. Large dense right lower lobe airspace consolidation consistent with severe pneumonia.
--- NOTE | 2025-09-11 11:02 | W.PN.UPDATE ---
Update Note
Progress Note Update
Second right chest tube placed, more posterior and inferior to first tube. Drained 120 cc of dark bloody nonpurulent fluid. Sent for laboratory analysis.
--- NOTE | 2025-09-11 12:00 | PTCARENOTE ---
Reassessed the patient, back from IR, s/p 2nd chest tube inserted in Right Posterior Chest (labeled as B on both chest tube and chamber), sanguineous drainage. Patient's breathing was less labored. Pain was within acceptable tolerance.
[2025-09-11] MEDS: SAMSCA 15 MG PO (12:42)
[2025-09-11] MEDS: LIPITOR 20 MG PO (12:42)
--- NOTE | 2025-09-11 14:20 | W.PN.HOSP.TC ---
Today's Communication/Plan
-
2nd chest tube placed today
continue Abx and follow cultures. Follow ID/Pulm recs
wean O2 as able
follow Nephro recs for hyponatremia; s/p Samsca with repeat 4pm
Assessment / Plan
Assessment / Plan
60yo M with PMHx of anxiety, HTN, HLD, atopic d/o, Hx of L empyema, MARGARET mass s/p bronchoscopy and biopsy in 2022 neg for malignant cells came after developing worsening SOB and excessive sputum while travelin to [place]. Had recently diagnozed with
bronchitis and treated with oral Abx as per his PCP. Found moderate loculated R pleural effusion and leukocytosis concerning for pneumonia with empyema and pulmonary embolism
Assessment:
Acute hypoxic respiratory failure (tachypnea, hypoxia 2/2 sepsis (leukocytosis, hypoxia, R pleural effusion) due to Pneumonia, CAP with R sided empyema
Hx of (L) sided empyema (07/2020)
- s/p 2 chest tubes (1st placed 09/06, second 09/11)
- monitor drainage, and repeat CXRs. as needed tPA
- Culture with Viridans strep; ID following. Continue Unasyn
- IS/Acapella when able
- follow ID and pulm/ICU recs
- OP Immunology for decreased IGG levels
Acute hyponatremia
- studies indicated SIADH
- fluid restriction 1200 cc
- Samsca per Nephrology
- repeat BMP 4pm
L acute provoked pulmonary embolism
- likely related to prolonged travel and associated immobility
- CT without RHS
- Echo: normal biventricular size and function without regional wall motion abnormality
- Dopplers negative
- continue weight based therapeutic Lovenox and eventual switch to DOAC for 3-6 months and also heme OP f/u for hypercoagulability testing
dilated aortic root
- 4.4cm
- repeat Echo in 6-12 mo
Fatty liver
- low fat diet
- cont statin
Hyperkalemia
- unclear reason
- start low potassium diet
- Follow BMP, hold ACEi
Elevated alk.phos
- no overt RUQ abd pain
Essential HTN
GERD
- PPI BID
HLD - statin
Atopic D/O
Hypocalcemia
- replete
PReDM
Obesity
Metabolic syndrome
- low fat/carb diet
- BMI 35.1
- lose weight
DVT ppx: Lovenox
Code: Full
Total Critical Care Time 42 minutes. I was immediately available to the patient and staff. I personally examined, reviewed labs, diagnostic images/reports, interpretations, treatment plans, discussed patient care with other providers and family
or caregivers (if patient is unable to make decisions), entered orders as appropriate and documented the medical record.
Anticipated Discharge: > 48 hours
Subjective/Interval History
-
Date of Service: September 11, 2025
s/p 2nd chest tube placement - bloody output
denies sob or cp
no fevers
Objective Data
-
Labs:
Laboratory Results
09/11/25 09/11/25
03:54 16:00
WBC 52.0 H*
Hgb 8.9 L
Hct 26.0 L
Plt Count 324
Sodium 124 L Pending
Potassium 4.5 Pending
Chloride 96 L Pending
Carbon Dioxide 25 Pending
BUN 26 H Pending
Creatinine 0.9 Pending
Glucose 120 H Pending
Calcium 6.8 L* Pending
Total Bilirubin 0.4
AST 98 H
ALT 69 H
Alkaline Phosphatase 84
Vital Signs:
Vital Signs
Temp Pulse Resp BP Pulse Ox
99.1 F 124 16 109/72 94
09/11/25 12:09 09/11/25 11:15 09/11/25 11:15 09/11/25 11:15 09/11/25 11:15
I&O
09/10/25 09/11/25 09/12/25
06:59 06:59 06:59
Intake Total 1180 / 1180 810 / 810
Output Total 2615 / 2615 1544 / 1544 970 / 970
Balance -1435 / -1435 -734 / -734 -970 / -970
Physical Exam
-
General: No Apparent Distress
HEENT: Normocephalic and Atraumatic
Respiratory: Chest Tubes
Cardiac: Regular Rhythm and S1/S2
Genito-urinary: No Costovertebral Tender
Neuro: AO x 3
Psych: Calm
Data Reviewed
-
Critical Care Time (in minutes): 42
Labs: Labs Reviewed by me
[2025-09-11] MEDS: TYLENOL 650 MG PO (14:56)
[2025-09-11 15:45] LABS: Blood Urea Nitrogen 21 mg/dl (9-20); Calcium 7.1 mg/dl (8.4-10.2); Carbon Dioxide 22 mmol/L (22-30); Chloride 94 mmol/L (98-107); Estimated Creatinine Clearance 124 ml/min; Glucose 139 mg/dl (70-99); Potassium 4.9 mmol/L (3.5-5.1); Sodium 123 mmol/L (135-145); eGFR > 60.00
--- NOTE | 2025-09-11 16:00 | PTCARENOTE ---
Reassessed the patient, OOB for 2 hours, back to bed with 2 people assistance. No other changes from previous assessments.
[2025-09-11] MEDS: NSS 1000 IV (17:22)
[2025-09-11] MEDS: PROTONIX 40 MG PO (19:37)
[2025-09-11] MEDS: SENOKOT-S 1 TABLET PO (19:37)
[2025-09-11] MEDS: TESSALON PERLES 200 MG PO (19:37)
[2025-09-11] MEDS: MUCINEX 1200 MG PO (19:37)
--- NOTE | 2025-09-11 20:00 | PTCARENOTE ---
Resumed care of pt laying in bed AAOx3, at bedside. Pt reports feeling slight improvement post 2nd chest tube placement. Reports work of breathing improved. HR Tachycardic with HR in the 120's. POX 96% on 4LO2 mid flow NC. Lungs dec with
scattered ex wheezes. [address], original more anterior CT with no drainage. New 2nd chest tube more posterior with sanguneous drainage, both dressings intact. Pt with + bowel, round abd. Pt denies BM today, bowel regimen administered
as ordered. Palpable peripheral pulses. Trace LE edema. Right AC INT infusing NSS@100ml/hr. Left hand, left AC int capped. PT reports pain at tolerable level at this time. Pt repositioned per comfort. Call bhat in reach. Will continue to monitor.
[2025-09-11 22:05] LABS: Hematocrit 23.9 % (39.0-52.0); Hemoglobin 8.3 g/dL (13.0-18.0)
[2025-09-11 22:22] LABS: Blood Urea Nitrogen 17 mg/dl (9-20); Calcium 7.2 mg/dl (8.4-10.2); Carbon Dioxide 28 mmol/L (22-30); Chloride 101 mmol/L (98-107); Estimated Creatinine Clearance 124 ml/min; Glucose 112 mg/dl (70-99); Potassium 4.5 mmol/L (3.5-5.1); Sodium 130 mmol/L (135-145); eGFR > 60.00
[2025-09-11] MEDS: LOVENOX 105 MG SC (22:41)
--- NOTE | 2025-09-11 23:21 | PTCARENOTE ---
#30 condom cath placed per pt request to allow for optimum rest this evening. Pt voiding frequently and is exhausted. CHG bath provided prior to bedtime. PRN pain medication as ordered for pain. No other changes in assessment noted at this time.
Call bhat in reach. Will continue to monitor.
[2025-09-12] VITALS (23 sets, daily range): BP systolic 108–144; BP diastolic 61–93; BMI 33.8
[2025-09-12] MEDS: UNASYN IV ×4 (01:14→20:11)
[2025-09-12] MEDS: NSS 1000 IV (04:36)
[2025-09-12 05:30] LABS: ALT (SGPT) 83 U/L (0-50); AST (SGOT) 117 U/L (17-59); Albumin 2.0 g/dl (3.5-5.0); Alkaline Phosphatase 82 U/L (38-126); Blood Urea Nitrogen 14 mg/dl (9-20); Calcium 6.9 mg/dl (8.4-10.2); Carbon Dioxide 29 mmol/L (22-30); Chloride 108 mmol/L (98-107); Estimated Creatinine Clearance > 125 ml/min; Glucose 111 mg/dl (70-99); Potassium 4.5 mmol/L (3.5-5.1); Sodium 135 mmol/L (135-145); Total Protein 4.4 g/dl (6.3-8.2); eGFR > 60.00
[2025-09-12 05:50] LABS: Hematocrit 22.0 % (39.0-52.0); Hemoglobin 7.6 g/dL (13.0-18.0); Mean Corp Hgb Conc. 34.5 g/dL (33.0-37.0); Mean Corpuscular Volume 79.4 fL (80.0-94.0); Platelet Count 316 10^3/uL (130-400); Red Cell Dist. Width 14.0 % (11.5-14.5)
--- NOTE | 2025-09-12 07:00 | PTCARENOTE ---
Received patient in sleep, arousable to voice, A&Ox3, looked tired, ST in 110s, BP WNL, 4L Midflow, Two Right side chest tubes to low continuous -20 suction, 1200mL fluid restriction, Condom cath in place. Pending swallow study.
[2025-09-12] MEDS: DUONEB 3 ML INH ×2 (07:27→19:40)
[2025-09-12] MEDS: DILAUDID 0.5 MG IV ×3 (07:48→21:54)
[2025-09-12] MEDS: TESSALON PERLES 200 MG PO ×2 (07:52→20:12)
[2025-09-12] MEDS: PROTONIX 40 MG PO ×2 (07:52→20:12)
[2025-09-12] MEDS: MUCINEX 1200 MG PO ×2 (07:52→20:11)
[2025-09-12] MEDS: SENOKOT-S 1 TABLET PO ×2 (07:52→20:12)
[2025-09-12] MEDS: LIPITOR 20 MG PO (07:52)
--- NOTE | 2025-09-12 08:47 | W.PN.ID1 ---
Date of Service
Date of Service: September 12, 2025
Today's Communication
Continue unasyn
Assessment / Plan
Right sided empyema
- Cultures with Strep. viridans
- Hx of (L) sided empyema (07/2020) - resolved on follow up imaging
PE left lower lobe pulmonary artery
Leukocytosis; ongoing
Recommendations:
- swallow evaluation nonrevealing, immunoglobulins IgM, IgA - WNL, IgG borderline low; IgG subclass WNL, HIV in progress, a1c 6.2
- blood cultures : finalized negative
- Pleural fluid cultures with Strep. viridans.
- Continue unasyn.
- R lateral chest tube output - dropped off yesterday
- R posterior (second) chest tube - >1L yesterday
- Follow white count and temperature curve - improving
����������������������������������������������������������
Chief Complaint
-: Other (Right empyema secondary to Strep. viridans)
Subjective / Review of Systems
no fevers
bp stable
down to 4L midflow overnight
second chest tube with 120 ccs of dark bloody, nonpurulent fluid when placed
Vital Signs / Physical Exam
Vital Signs
Vital Signs
Temp Pulse Resp BP Pulse Ox
97.7 F 121 20 128/74 94
09/12/25 03:17 09/12/25 05:00 09/12/25 05:00 09/12/25 05:00 09/12/25 05:00
Physical Exam
Constitutional: No Acute Distress and Obese
Cardiovascular: Regular Rate and S1/S2; Negative Murmur or Rub
Pulmonary: Clear and Symmetric; Negative Wheezes or Rales
Gastrointestinal: Soft, Non Tender, Non Distended and Normal Bowel Sounds
Skin: Warm and Dry; Negative Rash or Jaundice
Lines: Other (chest tube x2 serosanguinous output)
Objective Data
Lab Data
Lab Results
09/12/25 04:29
09/12/25 04:29
PT 15.4 Sec (11.4-14.6) H 09/10/25 10:24
INR 1.21 09/10/25 10:24
APTT 35.6 Sec (23.4-35.0) H 09/10/25 10:24
Estimated Creat Clear > 125 ml/min 09/12/25 04:29
Lactic Acid 1.9 mmol/L (0.7-2.0) 09/05/25 20:45
Total Bilirubin 0.3 mg/dl (0.2-1.3) 09/12/25 04:29
GGT 39 U/L (15-73) 09/06/25 09:33
AST 117 U/L (17-59) H 09/12/25 04:29
ALT 83 U/L (0-50) H 09/12/25 04:29
Alkaline Phosphatase 82 U/L (38-126) 09/12/25 04:29
Most recent labs reviewed.
Micro Results:
09/06/25 14:24 Fungal Smear - Final
Pleural Fluid No yeast or fungal elements seen.
Fungal Culture - Preliminary
Culture in progress.
Positive cultures are reported as soon as detected.
Final report to follow in four to five weeks.
09/05/25 20:45 Blood Culture - Final
Blood/Venous No Growth - Final Report
09/05/25 20:45 Blood Culture - Final
Blood/Venous No Growth - Final Report
09/08/25 10:59 Respiratory Culture - Final
Sputum Usual Respiratory Cheri
Gram Stain - Final
09/06/25 14:24 Body Fluid Culture - Final
Thoracentesis Fluid Viridans Streptococcus Group
Gram Stain - Final
09/06/25 14:24 Acid Fast Bacilli Smear - Preliminary
Pleural Fluid Acid Fast Bacilli Culture - Preliminary
09/06/25 10:33 Legionella Urinary Antigen - Final
Urine Negative for Legionella pneumophila Serogroup 1 antigen.
A negative result does not rule out the possiblity of
Legionella infection due to other serogroups or species of
Legionella. Clinical correlation is recommended.
Streptococcus pneumoniae Antigen (M - Final
Negative for Streptococcus pneumoniae antigen.
A negative result does not exclude infection with
Streptococcus pneumoniae. Clinical correlation is
recommended.
09/06/25 03:05 Nasal Screen MRSA (PCR) - Final
Nose MRSA not detected - performed by PCR methodology.
Imaging:
09/05/2025 CT chest PE study: moderate to large right pleural effusion with multiple loculations concerning for empyema. Confluent areas of parenchymal opacity within the right lung, most suggestive of compressive atelectasis. Please see full
dictation for additional detail.
09/11 CXR LARGE COMPLEX LOCULATED RIGHT PLEURAL EFFUSION (empyema) in the inferior and posterior right pleural space. Large dense right lower lobe airspace consolidation consistent with severe pneumonia.
09/12: CXR: persistent though diminished R opacity; small R lateral pneumothorax
--- NOTE | 2025-09-12 09:07 | W.PN.NEPH.PH ---
Today's Communication / Plan
-
follow BMP
Assessment/Plan
-
Impression:
Hyponatremia
Acute hypoxic respiratory failure with right large empyema status post right chest tube placement
Pulmonary embolism
Hypertension
BPH
Strep viridans bacteremia
Plan:
no FR
follow BMP
check urine
-
-
Date of Service: September 12, 2025
CC / HPI / ROS
-
Chief Complaint:
hyponatremia
History of Present Illness:
Na up to 135 with NSS
excellent UOP
BP stable improved
2 right chest tubes
Review of Systems:
mild SOB
no CP
thirsty
Labs
-
Labs:
WBC 21.4 10^3/uL (4.8-10.8) H 09/12/25 04:29
RBC 2.77 10^6/uL (4.70-6.10) L 09/12/25 04:29
Hgb 7.6 g/dL (13.0-18.0) L 09/12/25 04:29
Hct 22.0 % (39.0-52.0) L 09/12/25 04:29
Plt Count 316 10^3/uL (130-400) 09/12/25 04:29
Sodium 135 mmol/L (135-145) 09/12/25 04:29
Potassium 4.5 mmol/L (3.5-5.1) 09/12/25 04:29
Chloride 108 mmol/L (98-107) H 09/12/25 04:29
Carbon Dioxide 29 mmol/L (22-30) 09/12/25 04:29
BUN 14 mg/dl (9-20) 09/12/25 04:29
Creatinine 0.7 mg/dL (0.7-1.3) 09/12/25 04:29
eGFR > 60.00 09/12/25 04:29
Glucose 111 mg/dl (70-99) H 09/12/25 04:29
Calcium 6.9 mg/dl (8.4-10.2) L* 09/12/25 04:29
Phosphorus 3.7 mg/dl (2.5-4.5) 09/10/25 04:34
Mun-S-Kclfxuqwmie Pept 339 pg/ml 09/05/25 19:55
Albumin 2.0 g/dl (3.5-5.0) L 09/12/25 04:29
Physical Exam
-
Vital Signs:
Vital Signs
Temp Pulse Resp BP Pulse Ox
97.7 F 121 20 128/74 94
09/12/25 03:17 09/12/25 05:00 09/12/25 05:00 09/12/25 05:00 09/12/25 05:00
Cardiovascular:: Regular rate and rhythm
Respiratory:: Bilateral: Coarse
Lung Excursion:: Normal
Abdomen:: Nontender and Soft
Bowel Sounds:: Normal
Extremity Edema:: None: Bilateral:
[2025-09-12 09:46] LABS: Absolute Neutrophils -Man Diff 18.1 10^3/uL (1.4-6.5); Normal RBC Morphology Yes; Platelets Checked Yes
[2025-09-12 09:47] LABS: Total Cells Counted 100
--- NOTE | 2025-09-12 12:18 | CM ---
Chart reviewed. Seen by ID to continue IV unasyn and nephrology following and trending BMP. Right CT in place DC > 48 hours. Cm will continue to follow up for dcp needs
--- NOTE | 2025-09-12 12:47 | W.PN.INTV ---
Today's Communication / Plan
Recommendations
- F/u CXR in AM
- Hold Lovenox in view of anemia and sanguinous output. Add SCDs.
- Remove Chest tube #A
- Stable for transfer out of ICU to IMU
- Pulmonary team will continue to follow along.
Assessment
-
A 60 year old male with a PMH of prior left sided empyema (2019), hypertension, hyperlipidemia, GERD and anxiety who started having significant shortness of breath upon exertion which worsened with any activity during a trip to [facility]. Patient
contacted Dr. Trinidad who advised him to return back to the [place] given prior history of empyema. Upon arrival to the ED, patient was found to be afebrile with tachycardia (HR 130), tachypnea (RR 24-30) and leukocytosis (WBC 31.3), O2 90% on room air
which only improved to 90-93% with 6 L O2 supplementation. Trops negative. CTA chest showed moderate to large right-sided pleural effusion with multiple loculations with confluent parenchymal opacities within the right lung likely compressive
atelectasis however underlying pneumonia also possible. Also a suspicious pulmonary embolism involving a left lower lobe pulmonary artery. Patient was stared on Zosyn and Vancomycin in the ED, and given albuterol, ipratropium, Decadron and started
on heparin drip for the pulmonary embolism. Patient was subsequently admitted to the ICU, however after drainage/chest tube placement on 09/06/25, was deemed stable for downgrade to IMU. Given significant shortness of breath after first
instillation of tPA/dornase through chest tube, he was re-upgraded back to ICU.
#1. Right-sided loculated empyema with severe right lower lobe pneumonia.
- Strep viridans noted in pleural fluid cultures
- S/p IR guided chest tube placement on 09/06, tPA/DNase given x5. No drainage over last [address] IR consult to remove chest tube #A today.
- F/u CT with large posterior collection, s/p Chest tube #B placed 09/11, >1 ltr sanguinous output since. Continue to suction. No air leak
- Depending upon clinical course, might need surgical evaluation for decortication. F/u CT in 48 hrs.
- ID consulted; considering that he has had an empyema approximately 5 years ago, immunoglobulins checked and showed mildly reduced IgG at 640 (normal is 700-1600 mg/dL); IgG subclasses pending. Check HIV status.
- F/u CXR improving in AM.
- Small Pneumothorax noted on 09/12 likely ex-vacuo. No air leak or mediastinal shift noted.
- Holding tPA/DNAse in view of sanguinous output from chest tubes and dropping Hb.
#2. Acute pulmonary Embolism involving left lower lobe without evidence of RV strain
- Suspect provoked in the setting of recent travel as well as active infection/empyema
- Lovenox placed on hold due to dropping Hb and sanguinous chest tube out put.
- Add SCDs
#3. Acute respiratory failure with hypoxia due to above in setting acute PE and pneumonia/empyema
-Supplemental O2 as needed
#4. Acute on chronic hyponatremia
-Continue to hold Zoloft, as SSRI can contribute
-Urine sodium 13, osmolality 905, ? Intra vascular volume depletion
-Responded well to NS infusion. Saline locked now, Na improved.
#5. Anemia, acute blood loss
- Sanguinous chest tube output, had been on Lovenox therapeutic dose
- F/u CBC later today. Hold Lovenox for now
- Transfuse if Hb 7 or below.
Other medical diagnoses:
- Small hiatal hernia
- Former tobacco smoker (no evidence of COPD per PFTs, with FEV1/FVC 80 (105% predicted) via PFT from April 2023)
- History of hypertension/hyperlipidemia
- History of Iyer's esophagus
- History of left-sided pneumonia with empyema s/p chest tube (July 2020 - pleural fluid Cx grew Streptococcus mitis at the time)
Patient stable for transfer to IMU
Critical Care time [48] mins -- The patient is admitted for acute critical illness for the treatment of vital organ failure and/or prevention of further life-threatening conditions. Total care includes time spent in review of history, physical exam,
medications, hemodynamic/ventilator parameters, laboratory data, imaging and discussion with house staff, pharmacy, respiratory therapy, emery grinder, and nursing.
Data:
CTA Chest 09/05/2025:
Moderate to large right pleural effusion with multiple loculations. Given the patient's clinical history, findings raise concern for empyema.
Confluent areas of parenchymal opacity within the right lung, most suggestive of compressive atelectasis given the morphologic appearance. However, underlying pneumonia is also possible.
Findings considered highly suspicious for pulmonary embolism involving the left lower lobe pulmonary artery, as described above. Most proximal branching point is the left lower lobe lobar pulmonary artery.
No convincing evidence for right-sided pulmonary embolism.
No significant left pleural effusion.
Fatty infiltration the liver.
CT chest with IV contrast 09/10/2025:
1. MODERATE to LARGE VERY COMPLEX LOCULATED RIGHT PLEURAL EFFUSION in the inferior and posterior right pleural space (either infectious or malignant in etiology).
2. Large right lower lobe airspace consolidation and central bronchial segmental occlusion in the right lower lobe most suggestive of SEVERE RIGHT LOWER LOBE PNEUMONIA.
3. Right pleural chest tube in the inferolateral right pleural space.
4. Mild groundglass airspace opacity in the left upper and lower lobes (either mild pneumonia or atelectasis).
5. Small pericardial effusion.
6. Mild mediastinal lymphadenopathy.
7. Moderate calcific atherosclerotic plaque in the coronary arteries.
8. Small hiatal hernia.
Subjective Dataa
Subjective Data
Date of Service:
Date of Service: September 12, 2025
Chief Complaint: Immigration Case Manager Follow Up
Subjective:
Patient comfortable lying in bed in no acute distress.
Review of Systems
Genitourinary: Other (All 14 systems reviewed and negative except as stated above in the history of present illness.)
Objective Data
Data Reviewed
Vital Signs / I&O / Oxygen:
Vital Signs
Temp Pulse Resp BP Pulse Ox
98.2 F 112 18 138/81 96
09/12/25 12:03 09/12/25 12:00 09/12/25 12:00 09/12/25 12:00 09/12/25 12:00
Intake and Output
09/11/25 09/12/25 09/13/25
06:59 06:59 06:59
Intake Total 810 / 810 2540 / 2540 1320 / 1320
Output Total 1544 / 1544 6920 / 6920 1950 / 1950
Balance -734 / -734 -4380 / -4380 -630 / -630
SaO2 96
Nasal Cannula flow liters per 4
minute
Physical Exam
General: Respiratory Distress (negative), Pain (Right hemithorax at chest tube site), Chills (negative) and Sweats (negative)
HEENT: Normocephalic, Anicteric and Moist Mucous Membranes
Cardiovascular: S1-S2 and Peripheral Edema (negative)
Respiratory: Wheeze, Crackles (Bilaterally (R >L)), Rhonchi (Bilaterally), Chest Tube (Right hemithorax with no airleak on -20 cmH2O suction, [address] ) and Other (Decreased breath sounds on the right side)
GI: Soft, Distended (Abdominal obesity), Non Tender and Normal Bowel Sounds
Neurology: Awake, Alert, Oriented and Tremors (negative)
Skin: Warm, Dry, Jaundice (negative) and Rash (negative)
Labs/Micro/Reports
Microbiology
09/06/25 14:24 Pleural Fluid Fungal Smear - Final
No yeast or fungal elements seen.
09/06/25 14:24 Pleural Fluid Fungal Culture - Preliminary
Culture in progress.
Positive cultures are reported as soon as detected.
Final report to follow in four to five weeks.
09/05/25 20:45 Blood/Venous Blood Culture - Final
No Growth - Final Report
09/05/25 20:45 Blood/Venous Blood Culture - Final
No Growth - Final Report
09/08/25 10:59 Sputum Respiratory Culture - Final
Usual Respiratory Cheri
09/08/25 10:59 Sputum Gram Stain - Final
09/06/25 14:24 Thoracentesis Fluid Body Fluid Culture - Final
Viridans Streptococcus Group
09/06/25 14:24 Thoracentesis Fluid Gram Stain - Final
--- NOTE | 2025-09-12 13:27 | W.PN.HOSP.TC ---
Today's Communication/Plan
-
dc chest tube A
holding Lovenox; BMP 2pm
continue IV abx
Assessment / Plan
Assessment / Plan
60yo M with PMHx of anxiety, HTN, HLD, atopic d/o, Hx of L empyema, MARGARET mass s/p bronchoscopy and biopsy in 2022 neg for malignant cells came after developing worsening SOB and excessive sputum while travelin to [place]. Had recently diagnozed with
bronchitis and treated with oral Abx as per his PCP. Found moderate loculated R pleural effusion and leukocytosis concerning for pneumonia with empyema and pulmonary embolism
Assessment:
Acute hypoxic respiratory failure (tachypnea, hypoxia 2/2 sepsis (leukocytosis, hypoxia, R pleural effusion) due to Pneumonia, CAP with R sided empyema
Hx of (L) sided empyema (07/2020)
- s/p 2 chest tubes (Chest tube A placed 09/06, Chest tube B 09/11). Chest tube A to be removed today.
- monitor drainage, and repeat CXRs. as needed tPA
- Culture with Viridans strep; ID following. Continue Unasyn
- IS/Acapella when able
- follow ID and pulm/ICU recs
- OP Immunology for decreased IGG levels
Acute hyponatremia
- studies indicated SIADH
- s/p fluid restriction now stopped
- s/p Samsca per Nephrology
- follow BMP
Acute blood loss anemia in setting of bloody chest tube output from empyema
- monitor Hb, repeat 2pm; may need transfusion
L acute provoked pulmonary embolism
- likely related to prolonged travel and associated immobility
- CT without RHS
- Echo: normal biventricular size and function without regional wall motion abnormality
- Dopplers negative
- continue weight based therapeutic Lovenox (currently on hold for anemia) and eventual switch to DOAC for 3-6 months and also heme OP f/u for hypercoagulability testing
dilated aortic root
- 4.4cm
- repeat Echo in 6-12 mo
Fatty liver
- low fat diet
- cont statin
Hyperkalemia
- unclear reason
- start low potassium diet
- Follow BMP, hold ACEi
Elevated alk.phos
- no overt RUQ abd pain
Essential HTN
GERD
- PPI BID
HLD - statin
Atopic D/O
Hypocalcemia
- replete
PReDM
Obesity
Metabolic syndrome
- low fat/carb diet
- BMI 35.1
- lose weight
DVT ppx: SCDs (Lovenox stopped with lowering Hb)
Code: Full
Total Critical Care Time 42 minutes. I was immediately available to the patient and staff. I personally examined, reviewed labs, diagnostic images/reports, interpretations, treatment plans, discussed patient care with other providers and family
or caregivers (if patient is unable to make decisions), entered orders as appropriate and documented the medical record.
Dispo: downgraded to IMU floor.
Anticipated Discharge: > 48 hours
Subjective/Interval History
-
Date of Service: September 12, 2025
reports that 1st chest tube to be removed today
remains on 4L NC
Bloody output continues, Hb 7.6 with repeat at 2pm
Objective Data
-
Labs:
Laboratory Results
09/12/25 09/12/25
04:29 14:00
WBC 21.4 H Pending
Hgb 7.6 L Pending
Hct 22.0 L Pending
Plt Count 316 Pending
Sodium 135 Pending
Potassium 4.5 Pending
Chloride 108 H Pending
Carbon Dioxide 29 Pending
BUN 14 Pending
Creatinine 0.7 Pending
Glucose 111 H Pending
Calcium 6.9 L* Pending
Total Bilirubin 0.3
AST 117 H
ALT 83 H
Alkaline Phosphatase 82
Vital Signs:
Vital Signs
Temp Pulse Resp BP Pulse Ox
98.2 F 112 18 138/81 96
09/12/25 12:03 09/12/25 12:00 09/12/25 12:00 09/12/25 12:00 09/12/25 12:00
I&O
09/11/25 09/12/25 09/13/25
06:59 06:59 06:59
Intake Total 810 / 810 2540 / 2540 1320 / 1320
Output Total 1544 / 1544 6920 / 6920 1950 / 1950
Balance -734 / -734 -4380 / -4380 -630 / -630
Physical Exam
-
General: No Apparent Distress
HEENT: Normocephalic and Atraumatic
Respiratory: Chest Tubes (serosanginous outputs); Negative Wheezes or Rales
Cardiac: Regular Rhythm and S1/S2
GI: Soft and Nontender
Neuro: AO x 3
Hematologic / Lymphatic: No Lymphadenopathy
Psych: Calm
Data Reviewed
-
Total Time Spent with Patient (in minutes): 42
Labs: Labs Reviewed by me
--- NOTE | 2025-09-12 13:49 | PN.IRAD.UPD ---
Update Note - IRAD
- -
Right chest tube A removed bedside per Dr. Don. Site cleaned, tube pulled with no issue. Occlusive dressing placed.
[2025-09-12 14:23] LABS: Hematocrit 22.5 % (39.0-52.0); Hemoglobin 7.5 g/dL (13.0-18.0); Mean Corp Hgb Conc. 33.3 g/dL (33.0-37.0); Mean Corpuscular Volume 81.8 fL (80.0-94.0); Platelet Count 331 10^3/uL (130-400); Red Cell Dist. Width 14.3 % (11.5-14.5)
[2025-09-12 14:58] LABS: Blood Urea Nitrogen 11 mg/dl (9-20); Calcium 7.0 mg/dl (8.4-10.2); Carbon Dioxide 27 mmol/L (22-30); Chloride 108 mmol/L (98-107); Estimated Creatinine Clearance 123 ml/min; Glucose 126 mg/dl (70-99); Potassium 3.9 mmol/L (3.5-5.1); Sodium 139 mmol/L (135-145); eGFR > 60.00
[2025-09-12] MEDS: CALCIUM GLUCONATE 290 MG IV (16:30)
[2025-09-12] MEDS: TYLENOL 650 MG PO (17:54)
[2025-09-12] MEDS: MELATONIN 5 MG PO (21:53)
[2025-09-13] VITALS (24 sets, daily range): BP systolic 97–146; BP diastolic 51–95; PULSE 115; O2SAT 92; BMI 34.1
[2025-09-13] MEDS: UNASYN IV ×4 (02:39→19:40)
[2025-09-13 07:00] LABS: ALT (SGPT) 76 U/L (0-50); AST (SGOT) 93 U/L (17-59); Albumin 2.2 g/dl (3.5-5.0); Alkaline Phosphatase 93 U/L (38-126); Blood Urea Nitrogen 8 mg/dl (9-20); Calcium 7.4 mg/dl (8.4-10.2); Carbon Dioxide 29 mmol/L (22-30); Chloride 107 mmol/L (98-107); Estimated Creatinine Clearance > 125 ml/min; Glucose 97 mg/dl (70-99); Potassium 4.1 mmol/L (3.5-5.1); Sodium 138 mmol/L (135-145); Total Protein 4.9 g/dl (6.3-8.2); eGFR > 60.00
[2025-09-13 07:15] LABS: Hematocrit 22.5 % (39.0-52.0); Hemoglobin 7.4 g/dL (13.0-18.0); Mean Corp Hgb Conc. 32.9 g/dL (33.0-37.0); Mean Corpuscular Volume 82.7 fL (80.0-94.0); Platelet Count 319 10^3/uL (130-400); Red Cell Dist. Width 14.6 % (11.5-14.5)
[2025-09-13] MEDS: MUCINEX 1200 MG PO ×2 (07:56→19:39)
[2025-09-13] MEDS: TESSALON PERLES 200 MG PO ×2 (07:57→19:39)
[2025-09-13] MEDS: SENOKOT-S 1 TABLET PO ×2 (07:57→19:39)
[2025-09-13] MEDS: LIPITOR 20 MG PO (07:57)
[2025-09-13] MEDS: PROTONIX 40 MG PO ×2 (07:57→19:39)
[2025-09-13] MEDS: TYLENOL 650 MG PO ×3 (07:58→21:37)
--- NOTE | 2025-09-13 08:28 | W.PN.NEPH.PH ---
Today's Communication / Plan
-
No intervention today
Follow electrolyte
Assessment/Plan
-
Impression:
Hyponatremia
Acute hypoxic respiratory failure with right large empyema status post right chest tube placement
Pulmonary embolism
Hypertension
BPH
Strep viridans bacteremia
Plan:
Sodium up to 138
no FR
follow BMP
check urine, urine sodium was consistent with volume depletion
Massive urine output of over 8 L noted overnight
-
-
Date of Service: September 13, 2025
CC / HPI / ROS
-
Chief Complaint:
hyponatremia
History of Present Illness:
Na up to 138 after NSS
excellent UOP
BP stable improved
2 right chest tubes
Review of Systems:
mild SOB
no CP
thirsty polyuria noted with urine output of 8 L
Labs
-
Labs:
WBC 14.7 10^3/uL (4.8-10.8) H 09/13/25 06:18
RBC 2.72 10^6/uL (4.70-6.10) L 09/13/25 06:18
Hgb 7.4 g/dL (13.0-18.0) L 09/13/25 06:18
Hct 22.5 % (39.0-52.0) L 09/13/25 06:18
Plt Count 319 10^3/uL (130-400) 09/13/25 06:18
Sodium 138 mmol/L (135-145) 09/13/25 06:18
Potassium 4.1 mmol/L (3.5-5.1) 09/13/25 06:18
Chloride 107 mmol/L (98-107) 09/13/25 06:18
Carbon Dioxide 29 mmol/L (22-30) 09/13/25 06:18
BUN 8 mg/dl (9-20) L 09/13/25 06:18
Creatinine 0.7 mg/dL (0.7-1.3) 09/13/25 06:18
eGFR > 60.00 09/13/25 06:18
Glucose 97 mg/dl (70-99) 09/13/25 06:18
Calcium 7.4 mg/dl (8.4-10.2) L 09/13/25 06:18
Phosphorus 3.7 mg/dl (2.5-4.5) 09/10/25 04:34
Agv-U-Rtnxizaholl Pept 339 pg/ml 09/05/25 19:55
Albumin 2.2 g/dl (3.5-5.0) L 09/13/25 06:18
Physical Exam
-
Vital Signs:
Vital Signs
Temp Pulse Resp BP Pulse Ox
98.8 F 100 16 120/77 96
09/13/25 07:29 09/13/25 06:00 09/13/25 06:00 09/13/25 02:00 09/13/25 06:00
Cardiovascular:: Regular rate and rhythm
Respiratory:: Bilateral: Coarse
Lung Excursion:: Normal
Abdomen:: Nontender and Soft
Bowel Sounds:: Normal
Extremity Edema:: None: Bilateral:
Other Findings::
Chest tube
[2025-09-13 08:41] LABS: Absolute Neutrophils -Man Diff 12.3 10^3/uL (1.4-6.5); Anisocytosis 1+; Hypochromasia 1+; Normal RBC Morphology No; Platelets Checked Yes; Polychromasia 1+; Total Cells Counted 100
--- NOTE | 2025-09-13 08:54 | W.PN.ID1 ---
Date of Service
Date of Service: September 13, 2025
Today's Communication
Continue unasyn while inpatient, day ; plan eventual transition to oral therapy
Assessment / Plan
Right sided empyema
- Cultures with Strep. viridans
- Hx of (L) sided empyema (07/2020) - resolved on follow up imaging
PE left lower lobe pulmonary artery
Leukocytosis; ongoing
Recommendations:
- HIV negative
- blood cultures : finalized negative
- Pleural fluid cultures with Strep. viridans.
- Continue unasyn while inpatient, day ; plan eventual transition to oral therapy
- R lateral chest tube output - removed
- R posterior (second) chest tube - >80 ccs
- Follow white count and temperature curve - improving
����������������������������������������������������������
Chief Complaint
-: Other (Right empyema secondary to Strep. viridans)
Subjective / Review of Systems
afebrile
bp stable
8L UOP overnight
chest tube A removed
no other events overnight
asking about discharge
Vital Signs / Physical Exam
Vital Signs
Vital Signs
Temp Pulse Resp BP Pulse Ox
98.8 F 102 22 134/95 90
09/13/25 07:29 09/13/25 08:00 09/13/25 08:00 09/13/25 08:00 09/13/25 08:00
Physical Exam
Constitutional: No Acute Distress
Cardiovascular: Regular Rate and S1/S2; Negative Murmur or Rub
Pulmonary: Clear and Symmetric; Negative Wheezes or Rales
Gastrointestinal: Soft, Non Tender, Non Distended and Normal Bowel Sounds
Skin: Warm and Dry; Negative Rash or Jaundice
Physical Exam:
chest tube - serosanguinous output
Objective Data
Lab Data
Lab Results
09/13/25 06:18
09/13/25 06:18
PT 15.4 Sec (11.4-14.6) H 09/10/25 10:24
INR 1.21 09/10/25 10:24
APTT 35.6 Sec (23.4-35.0) H 09/10/25 10:24
Estimated Creat Clear > 125 ml/min 09/13/25 06:18
Lactic Acid 1.9 mmol/L (0.7-2.0) 09/05/25 20:45
Total Bilirubin 0.3 mg/dl (0.2-1.3) 09/13/25 06:18
GGT 39 U/L (15-73) 09/06/25 09:33
AST 93 U/L (17-59) H 09/13/25 06:18
ALT 76 U/L (0-50) H 09/13/25 06:18
Alkaline Phosphatase 93 U/L (38-126) 09/13/25 06:18
Most recent labs reviewed.
Micro Results:
09/06/25 14:24 Fungal Smear - Final
Pleural Fluid No yeast or fungal elements seen.
Fungal Culture - Preliminary
Culture in progress.
Positive cultures are reported as soon as detected.
Final report to follow in four to five weeks.
09/05/25 20:45 Blood Culture - Final
Blood/Venous No Growth - Final Report
09/05/25 20:45 Blood Culture - Final
Blood/Venous No Growth - Final Report
09/08/25 10:59 Respiratory Culture - Final
Sputum Usual Respiratory Cheri
Gram Stain - Final
09/06/25 14:24 Body Fluid Culture - Final
Thoracentesis Fluid Viridans Streptococcus Group
Gram Stain - Final
09/06/25 14:24 Acid Fast Bacilli Smear - Preliminary
Pleural Fluid Acid Fast Bacilli Culture - Preliminary
09/06/25 10:33 Legionella Urinary Antigen - Final
Urine Negative for Legionella pneumophila Serogroup 1 antigen.
A negative result does not rule out the possiblity of
Legionella infection due to other serogroups or species of
Legionella. Clinical correlation is recommended.
Streptococcus pneumoniae Antigen (M - Final
Negative for Streptococcus pneumoniae antigen.
A negative result does not exclude infection with
Streptococcus pneumoniae. Clinical correlation is
recommended.
09/06/25 03:05 Nasal Screen MRSA (PCR) - Final
Nose MRSA not detected - performed by PCR methodology.
Imaging:
09/05/2025 CT chest PE study: moderate to large right pleural effusion with multiple loculations concerning for empyema. Confluent areas of parenchymal opacity within the right lung, most suggestive of compressive atelectasis. Please see full
dictation for additional detail.
09/11 CXR LARGE COMPLEX LOCULATED RIGHT PLEURAL EFFUSION (empyema) in the inferior and posterior right pleural space. Large dense right lower lobe airspace consolidation consistent with severe pneumonia.
09/12: CXR: persistent though diminished R opacity; small R lateral pneumothorax
[2025-09-13] MEDS: DILAUDID 0.5 MG IV ×4 (11:23→22:53)
--- NOTE | 2025-09-13 11:34 | W.PN.HOSP.TC ---
Today's Communication/Plan
-
Continue Unasyn
CT management per IR/Pulmonary, s/p Dornase today
wean O2
Assessment / Plan
Assessment / Plan
60yo M with PMHx of anxiety, HTN, HLD, atopic d/o, Hx of L empyema, MARGARET mass s/p bronchoscopy and biopsy in 2022 neg for malignant cells came after developing worsening SOB and excessive sputum while travelin to [place]. Had recently diagnozed with
bronchitis and treated with oral Abx as per his PCP. Found moderate loculated R pleural effusion and leukocytosis concerning for pneumonia with empyema and pulmonary embolism
Assessment:
Acute hypoxic respiratory failure (tachypnea, hypoxia 2/2 sepsis (leukocytosis, hypoxia, R pleural effusion) due to Pneumonia, CAP with R sided empyema
Hx of (L) sided empyema (07/2020)
- s/p 2 chest tubes (Chest tube A placed 09/06, Chest tube B 09/11). Chest tube A to be removed today.
- monitor drainage, and repeat CXRs. as needed tPA
- Culture with Viridans strep; ID following. Continue Unasyn, day 06/25
- IS/Acapella when able
- follow ID and pulm/ICU recs
- OP Immunology for decreased IGG levels
Acute hyponatremia
- studies indicated SIADH
- s/p fluid restriction now stopped
- s/p Samsca per Nephrology
- follow BMP, Na normal
Acute blood loss anemia in setting of bloody chest tube output from empyema
- monitor Hb, currently 7.4
L acute provoked pulmonary embolism
- likely related to prolonged travel and associated immobility
- CT without RHS
- Echo: normal biventricular size and function without regional wall motion abnormality
- Dopplers negative
- continue weight based therapeutic Lovenox (currently on hold for anemia) and eventual switch to DOAC for 3-6 months and also heme OP f/u for hypercoagulability testing
dilated aortic root
- 4.4 cm
- repeat Echo in 6-12 mo
Fatty liver
- low fat diet
- cont statin
Hyperkalemia
- unclear reason
- start low potassium diet
- Follow BMP, hold ACEi
Elevated alk.phos
- no overt RUQ abd pain
Essential HTN
GERD
- PPI BID
HLD - statin
Atopic D/O
Hypocalcemia
- replete
PReDM
Obesity
Metabolic syndrome
- low fat/carb diet
- BMI 35.1
- lose weight
DVT ppx: SCDs (Lovenox stopped with lowering Hb)
Code: Full
Anticipated Discharge: > 48 hours
Subjective/Interval History
-
Date of Service: September 13, 2025
resting comfortably, no complaints
Objective Data
-
Labs:
Laboratory Results
09/13/25
06:18
WBC 14.7 H
Hgb 7.4 L
Hct 22.5 L
Plt Count 319
Sodium 138
Potassium 4.1
Chloride 107
Carbon Dioxide 29
BUN 8 L
Creatinine 0.7
Glucose 97
Calcium 7.4 L
Total Bilirubin 0.3
AST 93 H
ALT 76 H
Alkaline Phosphatase 93
Vital Signs:
Vital Signs
Temp Pulse Resp BP Pulse Ox
98.5 F 104 24 139/87 95
09/13/25 11:03 09/13/25 09:23 09/13/25 09:23 09/13/25 09:23 09/13/25 09:23
I&O
09/12/25 09/13/25 09/14/25
06:59 06:59 06:59
Intake Total 2540 / 2540 6410 / 6410 420 / 420
Output Total 6920 / 6920 9415 / 9415 2100 / 2100
Balance -4380 / -4380 -3005 / -3005 -1680 / -1680
Physical Exam
-
General: No Apparent Distress
HEENT: Normocephalic and Atraumatic
Respiratory: Chest Tubes; Negative Wheezes
Cardiac: Regular Rhythm and S1/S2
GI: Soft
Genito-urinary: No Costovertebral Tender
Neuro: AO x 3
Psych: Calm
Data Reviewed
-
Total Time Spent with Patient (in minutes): 42
Labs: Labs Reviewed by me
--- NOTE | 2025-09-13 12:20 | PTCARENOTE ---
Updates with hospitalist team, nephrology and pulmonary team during rounds. IR team at bedside follow up plan of TPA/Chest tube cares. PT/OT/speech teams continue follow up assessment and evaluation. Infectious disease continue to monitor lab and
drainage trends. Update with patient via phone. Teaching and follow up support ongoing.
--- NOTE | 2025-09-13 12:29 | PN.IRAD.UPD ---
Update Note - IRAD
- -
went bedside at 1220 to instill tpa into patient's right sided chest tube (B). No complaints, turned stopcock off. To be opened back to [facility] in two hours, told nurse Yariel. Redressed B site with clean gauze and ABD, and also redressed other
chest tube site that was removed yesterday (A).
--- NOTE | 2025-09-13 13:29 | W.PN.PUL3 ---
Today's Communication / Plan
-
- Intrapleural tPA/DNase, x 1
- Follow-up CT chest in a.m.
- If hemoglobin stays stable and no significant sanguinous output noted through chest tube, will resume therapeutic dose Lovenox later in the evening
Assessment
-
A 60 year old male with a PMH of prior left sided empyema (2019), hypertension, hyperlipidemia, GERD and anxiety who started having significant shortness of breath upon exertion which worsened with any activity during a trip to [facility]. Patient
contacted Dr. Trinidad who advised him to return back to the [place] given prior history of empyema. Upon arrival to the ED, patient was found to be afebrile with tachycardia (HR 130), tachypnea (RR 24-30) and leukocytosis (WBC 31.3), O2 90% on room air
which only improved to 90-93% with 6 L O2 supplementation. Trops negative. CTA chest showed moderate to large right-sided pleural effusion with multiple loculations with confluent parenchymal opacities within the right lung likely compressive
atelectasis however underlying pneumonia also possible. Also a suspicious pulmonary embolism involving a left lower lobe pulmonary artery. Patient was stared on Zosyn and Vancomycin in the ED, and given albuterol, ipratropium, Decadron and started
on heparin drip for the pulmonary embolism. Patient was subsequently admitted to the ICU, however after drainage/chest tube placement on 09/06/25, was deemed stable for downgrade to IMU. Given significant shortness of breath after first
instillation of tPA/dornase through chest tube, he was re-upgraded back to ICU.
#1. Right-sided loculated empyema with severe right lower lobe pneumonia.
- Strep viridans noted in pleural fluid cultures
- S/p IR guided chest tube placement on 09/06, tPA/DNase given x5. Removed on 09/12.
- F/u CT with large posterior collection, s/p Chest tube #B placed 09/11, >1 ltr sanguinous output since. Continue to suction. No air leak. Plan for tPA/DNAse x 1.
- Depending upon clinical course, might need surgical evaluation for decortication. F/u CT in 24 hrs.
- ID consulted; considering that he has had an empyema approximately 5 years ago, immunoglobulins checked and showed mildly reduced IgG at 640 (normal is 700-1600 mg/dL); IgG subclasses pending. HIV negative.
- F/u CXR stable
- Small Pneumothorax noted on 09/12 likely ex-vacuo. No air leak or mediastinal shift noted.
#2. Acute pulmonary Embolism involving left lower lobe without evidence of RV strain
- Suspect provoked in the setting of recent travel as well as active infection/empyema
- Lovenox placed on hold due to dropping Hb and sanguinous chest tube out put. Will resume 09/13 at reduced dose if chest tube output not particularly sanguinous.
- Continue SCDs
#3. Acute respiratory failure with hypoxia due to above in setting acute PE and pneumonia/empyema
-Supplemental O2 as needed
#4. Acute on chronic hyponatremia
-Continue to hold Zoloft, as SSRI can contribute
-Urine sodium 13, osmolality 905, ? Intra vascular volume depletion
-Responded well to NS infusion. Saline locked now, Na improved.
#5. Anemia, acute blood loss
- Sanguinous chest tube output, had been on Lovenox therapeutic dose
- F/u CBC stable/. Hold Lovenox for now
- Transfuse if Hb 7 or below.
Other medical diagnoses:
- Small hiatal hernia
- Former tobacco smoker (no evidence of COPD per PFTs, with FEV1/FVC 80 (105% predicted) via PFT from April 2023)
- History of hypertension/hyperlipidemia
- History of Iyer's esophagus
- History of left-sided pneumonia with empyema s/p chest tube (July 2020 - pleural fluid Cx grew Streptococcus mitis at the time)
Patient stable for transfer to IMU
Critical Care time [46] mins -- The patient is admitted for acute critical illness for the treatment of vital organ failure and/or prevention of further life-threatening conditions. Total care includes time spent in review of history, physical exam,
medications, hemodynamic/ventilator parameters, laboratory data, imaging and discussion with house staff, pharmacy, respiratory therapy, drafting technician, and nursing.
Data:
CTA Chest 09/05/2025:
Moderate to large right pleural effusion with multiple loculations. Given the patient's clinical history, findings raise concern for empyema.
Confluent areas of parenchymal opacity within the right lung, most suggestive of compressive atelectasis given the morphologic appearance. However, underlying pneumonia is also possible.
Findings considered highly suspicious for pulmonary embolism involving the left lower lobe pulmonary artery, as described above. Most proximal branching point is the left lower lobe lobar pulmonary artery.
No convincing evidence for right-sided pulmonary embolism.
No significant left pleural effusion.
Fatty infiltration the liver.
CT chest with IV contrast 09/10/2025:
1. MODERATE to LARGE VERY COMPLEX LOCULATED RIGHT PLEURAL EFFUSION in the inferior and posterior right pleural space (either infectious or malignant in etiology).
2. Large right lower lobe airspace consolidation and central bronchial segmental occlusion in the right lower lobe most suggestive of SEVERE RIGHT LOWER LOBE PNEUMONIA.
3. Right pleural chest tube in the inferolateral right pleural space.
4. Mild groundglass airspace opacity in the left upper and lower lobes (either mild pneumonia or atelectasis).
5. Small pericardial effusion.
6. Mild mediastinal lymphadenopathy.
7. Moderate calcific atherosclerotic plaque in the coronary arteries.
8. Small hiatal hernia.
Subjective Data
-
Date of Service:
Date of Service: September 13, 2025
Chief Complaint: Pulmonary Follow Up
Subjective:
Patient comfortable lying in bed in no acute distress.
Review of Systems
Genitourinary: Other (All 14 systems reviewed and negative except as stated above in the history of present illness.)
Objective Data
Data Reviewed
Vital Signs / I&O / Oxygen:
Vital Signs
Temp Pulse Resp BP Pulse Ox
98.5 F 107 15 119/80 93
09/13/25 11:03 09/13/25 12:00 09/13/25 12:00 09/13/25 12:00 09/13/25 12:00
Intake and Output
09/12/25 09/13/25 09/14/25
06:59 06:59 06:59
Intake Total 2540 / 2540 6410 / 6410 660 / 660
Output Total 6920 / 6920 9415 / 9415 2700 / 2700
Balance -4380 / -4380 -3005 / -3005 -2040 / -2040
SaO2 93
Nasal Cannula flow liters per 2
minute
Physical Exam
General: Respiratory Distress (negative), Comfortable, Chills (negative) and Other (Appears somnolent)
HEENT: Normocephalic, Anicteric and Other (Thick neck)
Cardiovascular: S1-S2 and Peripheral Edema (negative)
Respiratory: Wheeze (negative), Crackles (negative), Rhonchi (Right hemithorax) and Chest Tube (Right hemithorax, on -20 cmH2O with no airleak)
GI: Soft, Distended (Abdominal obesity), Non Tender and Normal Bowel Sounds
Neurology: Tremors (negative) and Other (Somnolent but easily arousable to voice and answering all questions appropriately)
Skin: Warm, Dry, Cyanosis (negative) and Jaundice (negative)
Labs/Micro/Reports
Lab Data
09/13/25 06:18
09/13/25 06:18
Microbiology
09/06/25 14:24 Pleural Fluid Fungal Smear - Final
No yeast or fungal elements seen.
09/06/25 14:24 Pleural Fluid Fungal Culture - Preliminary
Culture in progress.
Positive cultures are reported as soon as detected.
Final report to follow in four to five weeks.
09/05/25 20:45 Blood/Venous Blood Culture - Final
No Growth - Final Report
09/05/25 20:45 Blood/Venous Blood Culture - Final
No Growth - Final Report
09/08/25 10:59 Sputum Respiratory Culture - Final
Usual Respiratory Cheri
09/08/25 10:59 Sputum Gram Stain - Final
[2025-09-13] MEDS: CATHFLO/ACTIVASE 50 ML INTRAPLEUR (14:13)
[2025-09-13] MEDS: CATHFLO/ACTIVASE 50 MG INTRAPLEUR (14:13)
[2025-09-13] MEDS: PULMOZYME 50 MG INTRAPLEUR (14:13)
[2025-09-13] MEDS: PULMOZYME 50 ML INTRAPLEUR (14:13)
[2025-09-13] MEDS: NSS 25 ML INTRAPLEUR (14:14)
--- NOTE | 2025-09-13 16:40 | CM ---
CM met briefly with Kolby to complete IA. Kolby lives with his in a 2 story home with 2 entry steps.
At baseline he is (I) amb and adls, enjoys walking his dog, and works from home. No hx of SNF or VN.
CM will continue to follow to coordinate all discharge planning needs identified during the current hospitalization.
Plan: Discharge to home with no anticipated needs.
--- NOTE | 2025-09-13 18:59 | PTCARENOTE ---
Update with director patient accounting. Review pt/ot events and recovery post activity. at bedside, updated plan of cares, continue to reinforce teaching concerns. Supportive cares ongoing. Will wean o2 as tolerated. Update report and shift change.
[2025-09-13] MEDS: LOVENOX 80 MG SC (19:39)
--- NOTE | 2025-09-13 21:06 | PTCARENOTE ---
Assumed care of patient at 1900. AAOx3, drowsy @ times - easily arousable to voice. ST on the monitor - HR 120s-130s. POX 94% on 5L mid flow NC. Lungs diminished and coarse bilaterally. Tachypneic and BACA. Nonproductive moist occasional cough. R
posterior chest tube to suction w/ sanguinous drainage. +BS, abdomen round/obese. Continent of bowel and bladder - voiding clear yellow urine in urinal. Palpable peripheral pulses. Trace LE edema bilaterally and trace hand edema bilaterally. B/L AC
IVs capped, LH IV capped.
[2025-09-13] MEDS: MELATONIN 5 MG PO (21:37)
[2025-09-14] VITALS (30 sets, daily range): BP systolic 99–145; BP diastolic 57–93; PULSE 114; O2SAT 96; BMI 33.3
[2025-09-14] MEDS: UNASYN IV ×4 (02:26→20:55)
[2025-09-14 04:08] LABS: ALT (SGPT) 56 U/L (0-50); AST (SGOT) 67 U/L (17-59); Albumin 1.8 g/dl (3.5-5.0); Alkaline Phosphatase 77 U/L (38-126); Blood Urea Nitrogen 7 mg/dl (9-20); Calcium 6.6 mg/dl (8.4-10.2); Carbon Dioxide 30 mmol/L (22-30); Chloride 102 mmol/L (98-107); Estimated Creatinine Clearance > 125 ml/min; Glucose 97 mg/dl (70-99); Potassium 3.8 mmol/L (3.5-5.1); Sodium 131 mmol/L (135-145); Total Protein 4.2 g/dl (6.3-8.2); eGFR > 60.00
[2025-09-14] MEDS: FLEXBUMIN 100 IV (04:29)
[2025-09-14 05:00] LABS: Hematocrit 19.4 % (39.0-52.0); Hemoglobin 6.4 g/dL (13.0-18.0); Mean Corp Hgb Conc. 33.0 g/dL (33.0-37.0); Mean Corpuscular Volume 82.6 fL (80.0-94.0); Platelet Count 331 10^3/uL (130-400); Red Cell Dist. Width 14.6 % (11.5-14.5)
[2025-09-14] MEDS: CALCIUM GLUCONATE 130 MG IV (05:02)
[2025-09-14] MEDS: TYLENOL 650 MG PO ×3 (05:15→18:17)
--- NOTE | 2025-09-14 05:26 | W.PN.UPDATE ---
Update Note
Progress Note Update
Patient hgb dropped to 6.4, obtained patient consent for blood transfusion, answered all questions, ordered type and screen, and transfusion x1 u PRBCs.
[2025-09-14 06:40] LABS: Nucleated Red Blood Cells % 0.5 % (-)
[2025-09-14] MEDS: TESSALON PERLES 200 MG PO ×2 (07:37→20:54)
[2025-09-14] MEDS: LIPITOR 20 MG PO (07:37)
[2025-09-14] MEDS: MUCINEX 1200 MG PO ×2 (07:37→20:54)
[2025-09-14] MEDS: PROTONIX 40 MG PO ×2 (07:37→20:54)
[2025-09-14] MEDS: SENOKOT-S PO ×2 (07:38→20:54)
--- NOTE | 2025-09-14 08:14 | PTCARENOTE ---
recd pt handoff with previous shift, awakened easily. verbalizing appropriately, frustrated at situation, reviewed plans for today with pt, questions answered as able. blood infusing as ordered. Notes some discomfort at R post chest tube site,
denies need for meds at this time. call bhat in reach.
--- NOTE | 2025-09-14 09:00 | CM ---
Chart reviewed. Care ongoing
Cont IV abx
Therapy following, pt will likely need some form of PT after discharge (OP or home PT). Will follow final recommendation
Plan: Home, watch for discharge needs
[2025-09-14] MEDS: LOVENOX SC (09:45)
--- NOTE | 2025-09-14 10:52 | W.PN.PUL3 ---
Today's Communication / Plan
-
- PRBC x 1
- Hold Lovenox
- Follow-up CT chest without contrast
Assessment
-
A 60 year old male with a PMH of prior left sided empyema (2019), hypertension, hyperlipidemia, GERD and anxiety who started having significant shortness of breath upon exertion which worsened with any activity during a trip to [facility]. Patient
contacted Dr. Trinidad who advised him to [place] given prior history of [place]pyema. Upon arrival to the ED, patient was found to be afebrile with tachycardia (HR 130), tachypnea (RR 24-30) and leukocytosis (WBC 31.3), O2 90% on room air
which only improved to 90-93% with 6 L O2 supplementation. Trops negative. CTA chest showed moderate to large right-sided pleural effusion with multiple loculations with confluent parenchymal opacities within the right lung likely compressive
atelectasis however underlying pneumonia also possible. Also a suspicious pulmonary embolism involving a left lower lobe pulmonary artery. Patient was stared on Zosyn and Vancomycin in the ED, and given albuterol, ipratropium, Decadron and started
on heparin drip for the pulmonary embolism. Patient was subsequently admitted to the ICU, however after drainage/chest tube placement on 09/06/25, was deemed stable for downgrade to IMU. Given significant shortness of breath after first
instillation of tPA/dornase through chest tube, he was re-upgraded back to ICU.
#1. Right-sided loculated empyema with severe right lower lobe pneumonia.
- Strep viridans noted in pleural fluid cultures
- S/p IR guided chest tube placement on 09/06, tPA/DNase given x5. Removed on 09/12.
- F/u CT with large posterior collection, s/p Chest tube #B placed 09/11, >1.5 ltr sanguinous output since. Continue to suction. No air leak. S/p tPA/DNAse x 1 on 09/13, hemorrhagic output with drop in H/H, hold additional tPA/DNAse.
- Await CT chest today
- ID consulted; considering that he has had an empyema approximately 5 years ago, immunoglobulins checked and showed mildly reduced IgG at 640 (normal is 700-1600 mg/dL); IgG subclasses pending. HIV negative.
- F/u CXR stable
- Small Pneumothorax noted on 09/12 likely ex-vacuo. No air leak or mediastinal shift noted.
#2. Acute pulmonary Embolism involving left lower lobe without evidence of RV strain
- Suspect provoked in the setting of recent travel as well as active infection/empyema
- Lovenox was resumed at reduced dose on 09/13, again drop in Hb noted requiring 1 unit PRBC.
- Hold Lovenox for today, will attempt resumption in AM.
- Continue SCDs
#3. Acute respiratory failure with hypoxia due to above in setting acute PE and pneumonia/empyema
-Supplemental O2 as needed
#4. Acute on chronic hyponatremia
-Continue to hold Zoloft, as SSRI can contribute
-Urine sodium 13, osmolality 905, ? Intra vascular volume depletion
-Responded well to NS infusion. Saline locked now, Na improved.
#5. Anemia, acute blood loss
- Sanguinous chest tube output, had been on Lovenox therapeutic dose
- Hold lovenox
- Transfuse x 1 unit 09/14
Other medical diagnoses:
- Small hiatal hernia
- Former tobacco smoker (no evidence of COPD per PFTs, with FEV1/FVC 80 (105% predicted) via PFT from April 2023)
- History of hypertension/hyperlipidemia
- History of Iyer's esophagus
- History of left-sided pneumonia with empyema s/p chest tube (July 2020 - pleural fluid Cx grew Streptococcus mitis at the time)
Patient stable for transfer to IMU
Critical Care time [44] mins -- The patient is admitted for acute critical illness for the treatment of vital organ failure and/or prevention of further life-threatening conditions. Total care includes time spent in review of history, physical exam,
medications, hemodynamic/ventilator parameters, laboratory data, imaging and discussion with house staff, pharmacy, respiratory therapy, chest painting leader, and nursing.
Data:
CTA Chest 09/05/2025:
Moderate to large right pleural effusion with multiple loculations. Given the patient's clinical history, findings raise concern for empyema.
Confluent areas of parenchymal opacity within the right lung, most suggestive of compressive atelectasis given the morphologic appearance. However, underlying pneumonia is also possible.
Findings considered highly suspicious for pulmonary embolism involving the left lower lobe pulmonary artery, as described above. Most proximal branching point is the left lower lobe lobar pulmonary artery.
No convincing evidence for right-sided pulmonary embolism.
No significant left pleural effusion.
Fatty infiltration the liver.
CT chest with IV contrast 09/10/2025:
1. MODERATE to LARGE VERY COMPLEX LOCULATED RIGHT PLEURAL EFFUSION in the inferior and posterior right pleural space (either infectious or malignant in etiology).
2. Large right lower lobe airspace consolidation and central bronchial segmental occlusion in the right lower lobe most suggestive of SEVERE RIGHT LOWER LOBE PNEUMONIA.
3. Right pleural chest tube in the inferolateral right pleural space.
4. Mild groundglass airspace opacity in the left upper and lower lobes (either mild pneumonia or atelectasis).
5. Small pericardial effusion.
6. Mild mediastinal lymphadenopathy.
7. Moderate calcific atherosclerotic plaque in the coronary arteries.
8. Small hiatal hernia.
Subjective Data
-
Date of Service:
Date of Service: September 14, 2025
Chief Complaint: Pulmonary Follow Up
Subjective:
Comfortably sitting in bed in no acute distress.
Review of Systems
Genitourinary: Other (No new symptoms reported.)
Objective Data
Data Reviewed
Vital Signs / I&O / Oxygen:
Vital Signs
Temp Pulse Resp BP Pulse Ox
98.0 F 99 22 120/70 95
09/14/25 10:23 09/14/25 10:23 09/14/25 10:23 09/14/25 10:23 09/14/25 08:00
Intake and Output
09/13/25 09/14/25 09/15/25
06:59 06:59 06:59
Intake Total 6410 / 6410 2470 / 2470 1030 / 1030
Output Total 9415 / 9415 5550 / 5550 1250 / 1250
Balance -3005 / -3005 -3080 / -3080 -220 / -220
SaO2 95
Nasal Cannula flow liters per 4
minute
Physical Exam
General: Respiratory Distress (negative), Comfortable, Chills (negative) and Other (Appears somnolent)
HEENT: Normocephalic, Anicteric and Other (Thick neck)
Cardiovascular: S1-S2 and Peripheral Edema (negative)
Respiratory: Wheeze (negative), Crackles (negative), Rhonchi (Right hemithorax) and Chest Tube (Right hemithorax, on -20 cmH2O with no airleak)
GI: Soft, Distended (Abdominal obesity), Non Tender and Normal Bowel Sounds
Neurology: Tremors (negative) and Other (Somnolent but easily arousable to voice and answering all questions appropriately)
Skin: Warm, Dry, Cyanosis (negative) and Jaundice (negative)
Labs/Micro/Reports
Lab Data
09/14/25 03:17
09/14/25 03:17
Microbiology
09/06/25 14:24 Pleural Fluid Fungal Smear - Final
No yeast or fungal elements seen.
09/06/25 14:24 Pleural Fluid Fungal Culture - Preliminary
Culture in progress.
Positive cultures are reported as soon as detected.
Final report to follow in four to five weeks.
--- NOTE | 2025-09-14 11:50 | W.PN.ID1 ---
Date of Service
Date of Service: September 14, 2025
Today's Communication
- Continue unasyn while inpatient, ; transition to oral augmentin 875/125 mg po bid on discharge
Assessment / Plan
Right sided empyema
- Cultures with Strep. viridans
- Hx of (L) sided empyema (07/2020) - resolved on follow up imaging
PE left lower lobe pulmonary artery
Leukocytosis; ongoing
Recommendations:
- blood cultures : finalized negative
- Pleural fluid cultures with Strep. viridans.
- CT chest w/o IV contrast: right sided effusion almost resolved, new airspace dz l upper and lower lobes
- Continue unasyn while inpatient, ; transition to oral augmentin 875/125 mg po bid on discharge
- R lateral chest tube output - removed
- R posterior (second) chest tube - 285 cc yesterday
- Follow white count and temperature curve - improving
����������������������������������������������������������
Chief Complaint
-: Other (Right empyema secondary to Strep. viridans)
Subjective / Review of Systems
afebrile
bp stable
had dornase yesterday
repeat CT chest today
Vital Signs / Physical Exam
Vital Signs
Vital Signs
Temp Pulse Resp BP Pulse Ox
98.0 F 99 22 120/70 95
09/14/25 10:23 09/14/25 10:23 09/14/25 10:23 09/14/25 10:23 09/14/25 08:00
Physical Exam
Constitutional: No Acute Distress
Cardiovascular: Regular Rate and S1/S2; Negative Murmur or Rub
Pulmonary: Clear and Symmetric; Negative Wheezes or Rales
Gastrointestinal: Soft, Non Tender, Non Distended and Normal Bowel Sounds
Skin: Warm and Dry; Negative Rash or Jaundice
Physical Exam:
chest tube
Objective Data
Lab Data
Lab Results
09/14/25 03:17
09/14/25 03:17
PT 15.4 Sec (11.4-14.6) H 09/10/25 10:24
INR 1.21 09/10/25 10:24
APTT 35.6 Sec (23.4-35.0) H 09/10/25 10:24
Estimated Creat Clear > 125 ml/min 09/14/25 03:17
Lactic Acid 1.9 mmol/L (0.7-2.0) 09/05/25 20:45
Total Bilirubin < 0.1 mg/dl (0.2-1.3) L 09/14/25 03:17
GGT 39 U/L (15-73) 09/06/25 09:33
AST 67 U/L (17-59) H 09/14/25 03:17
ALT 56 U/L (0-50) H 09/14/25 03:17
Alkaline Phosphatase 77 U/L (38-126) 09/14/25 03:17
Most recent labs reviewed.
Micro Results:
09/06/25 14:24 Fungal Smear - Final
Pleural Fluid No yeast or fungal elements seen.
Fungal Culture - Preliminary
Culture in progress.
Positive cultures are reported as soon as detected.
Final report to follow in four to five weeks.
09/05/25 20:45 Blood Culture - Final
Blood/Venous No Growth - Final Report
09/05/25 20:45 Blood Culture - Final
Blood/Venous No Growth - Final Report
09/08/25 10:59 Respiratory Culture - Final
Sputum Usual Respiratory Cheri
Gram Stain - Final
09/06/25 14:24 Body Fluid Culture - Final
Thoracentesis Fluid Viridans Streptococcus Group
Gram Stain - Final
09/06/25 14:24 Acid Fast Bacilli Smear - Preliminary
Pleural Fluid Acid Fast Bacilli Culture - Preliminary
09/06/25 10:33 Legionella Urinary Antigen - Final
Urine Negative for Legionella pneumophila Serogroup 1 antigen.
A negative result does not rule out the possiblity of
Legionella infection due to other serogroups or species of
Legionella. Clinical correlation is recommended.
Streptococcus pneumoniae Antigen (M - Final
Negative for Streptococcus pneumoniae antigen.
A negative result does not exclude infection with
Streptococcus pneumoniae. Clinical correlation is
recommended.
09/06/25 03:05 Nasal Screen MRSA (PCR) - Final
Nose MRSA not detected - performed by PCR methodology.
Imaging:
09/05/2025 CT chest PE study: moderate to large right pleural effusion with multiple loculations concerning for empyema. Confluent areas of parenchymal opacity within the right lung, most suggestive of compressive atelectasis. Please see full
dictation for additional detail.
09/11 CXR LARGE COMPLEX LOCULATED RIGHT PLEURAL EFFUSION (empyema) in the inferior and posterior right pleural space. Large dense right lower lobe airspace consolidation consistent with severe pneumonia.
09/12: CXR: persistent though diminished R opacity; small R lateral pneumothorax
Care Review
Plan reviewed with: Physician (Dr Don - oral antibiotics)
--- NOTE | 2025-09-14 11:59 | PTCARENOTE ---
to CT scan, images obtained, back to ICU, CT to water seal per order, tolerated transfer well. Suction resumed upon return, turned, then OOB to BSC for very large soft brown BM. presently in recliner. Med with tylenol for 5/10 pain. Winded and
BACA but pulse ox remained mid 90s. Reinforced IS, some breathing techniques, relief obtained after a few minutes.
[2025-09-14] MEDS: DUONEB 3 ML INH (12:05)
--- NOTE | 2025-09-14 13:18 | W.PN.NEPH.PH ---
Today's Communication / Plan
-
am labs
Assessment/Plan
-
Impression:
Hyponatremia
Acute hypoxic respiratory failure with right large empyema status post right chest tube placement
Pulmonary embolism
Hypertension
BPH
Strep viridans bacteremia
Plan:
Sodium up to 138> 131
no FR at this time
follow BMP
U osm 248
UO 1.4 L today
no ivf or diuretics at this time
monitor UO
am labs
d/w cc nursing
Total Time Spent with Patient (in minutes): 31
-
-
Date of Service: September 14, 2025
CC / HPI / ROS
-
Chief Complaint:
hyponatremia
History of Present Illness:
Na up to 138 after NSS
excellent UOP
BP stable improved
2 right chest tubes
Review of Systems:
mild SOB
no CP
Labs
-
Labs:
WBC 11.3 10^3/uL (4.8-10.8) H 09/14/25 03:17
RBC 2.35 10^6/uL (4.70-6.10) L 09/14/25 03:17
Hgb 6.4 g/dL (13.0-18.0) L* 09/14/25 03:17
Hct 19.4 % (39.0-52.0) L* 09/14/25 03:17
Plt Count 331 10^3/uL (130-400) 09/14/25 03:17
Sodium 131 mmol/L (135-145) L 09/14/25 03:17
Potassium 3.8 mmol/L (3.5-5.1) 09/14/25 03:17
Chloride 102 mmol/L (98-107) 09/14/25 03:17
Carbon Dioxide 30 mmol/L (22-30) 09/14/25 03:17
BUN 7 mg/dl (9-20) L 09/14/25 03:17
Creatinine 0.7 mg/dL (0.7-1.3) 09/14/25 03:17
eGFR > 60.00 09/14/25 03:17
Glucose 97 mg/dl (70-99) 09/14/25 03:17
Calcium 6.6 mg/dl (8.4-10.2) L* 09/14/25 03:17
Phosphorus 3.7 mg/dl (2.5-4.5) 09/10/25 04:34
[id number]-M-[id number] Pept 339 pg/ml 09/05/25 19:55
Albumin 1.8 g/dl (3.5-5.0) L 09/14/25 03:17
Physical Exam
-
Vital Signs:
Vital Signs
Temp Pulse Resp BP Pulse Ox
98.2 F 110 21 120/70 96
09/14/25 12:59 09/14/25 12:08 09/14/25 12:08 09/14/25 10:23 09/14/25 12:08
--- NOTE | 2025-09-14 14:47 | W.PN.HOSP.TC ---
Today's Communication/Plan
-
continue IV abx
likely DC CT tomorrow after CT result today
follow ID / pulm recs
Assessment / Plan
Assessment / Plan
60yo M with PMHx of anxiety, HTN, HLD, atopic d/o, Hx of L empyema, MARGARET mass s/p bronchoscopy and biopsy in 2022 neg for malignant cells came after developing worsening SOB and excessive sputum while travelin to [place]. Had recently diagnozed with
bronchitis and treated with oral Abx as per his PCP. Found moderate loculated R pleural effusion and leukocytosis concerning for pneumonia with empyema and pulmonary embolism
Assessment:
Acute hypoxic respiratory failure (tachypnea, hypoxia 2/2 sepsis (leukocytosis, hypoxia, R pleural effusion) due to Pneumonia, CAP with R sided empyema
Hx of (L) sided empyema (07/2020)
- s/p 2 chest tubes (Chest tube A placed 09/06, Chest tube B 09/11). Chest tube A removed 09/12.
- monitor drainage, as needed tPA
- Culture with Viridans strep; ID following. Continue Unasyn, day 07/25
- CT chest: new airspace disease in the left upper lobe and the left lower lobe. These are likely additional areas of pneumonia. Right lower lobe pneumonia has improved. Right-sided pleural effusion is almost completely gone
- IS/Acapella when able
- follow ID and pulm/ICU recs
- OP Immunology for decreased IGG levels
Acute hyponatremia
- studies indicated SIADH
- s/p fluid restriction now stopped
- s/p Samsca per Nephrology
- follow BMP, Na 131 today
Acute blood loss anemia in setting of bloody chest tube output from empyema
- monitor Hb, currently 6.4, 1 unit PRBC ordered today.
L acute provoked pulmonary embolism
- likely related to prolonged travel and associated immobility
- CT without RHS
- Echo: normal biventricular size and function without regional wall motion abnormality
- Dopplers negative
- continue weight based therapeutic Lovenox (currently on hold for anemia) and eventual switch to DOAC for 3-6 months and also heme OP f/u for hypercoagulability testing
dilated aortic root
- 4.4 cm
- repeat Echo in 6-12 mo
Fatty liver
- low fat diet
- cont statin
Hyperkalemia
- unclear reason
- start low potassium diet
- Follow BMP, hold ACEi
Elevated alk.phos
- no overt RUQ abd pain
Essential HTN
GERD
- PPI BID
HLD - statin
Atopic D/O
Hypocalcemia
- replete
PReDM
Obesity
Metabolic syndrome
- low fat/carb diet
- BMI 35.1
- lose weight
DVT ppx: SCDs (Lovenox stopped with lowering Hb)
Code: Full
Anticipated Discharge: > 48 hours
Subjective/Interval History
-
Date of Service: September 14, 2025
no acute distress
Hb 6.4, 1 unit ordered
Objective Data
-
Labs:
Laboratory Results
09/14/25
03:17
WBC 11.3 H
Hgb 6.4 L*
Hct 19.4 L*
Plt Count 331
Sodium 131 L
Potassium 3.8
Chloride 102
Carbon Dioxide 30
BUN 7 L
Creatinine 0.7
Glucose 97
Calcium 6.6 L*
Total Bilirubin < 0.1 L
AST 67 H
ALT 56 H
Alkaline Phosphatase 77
Vital Signs:
Vital Signs
Temp Pulse Resp BP Pulse Ox
98.2 F 110 19 104/63 96
09/14/25 12:59 09/14/25 13:00 09/14/25 13:00 09/14/25 13:00 09/14/25 14:20
I&O
09/13/25 09/14/25 09/15/25
06:59 06:59 06:59
Intake Total 6410 / 6410 2470 / 2470 1270 / 1270
Output Total 9415 / 9415 5550 / 5550 1650 / 1650
Balance -3005 / -3005 -3080 / -3080 -380 / -380
Physical Exam
-
General: No Apparent Distress
HEENT: Normocephalic and Atraumatic
Respiratory: Chest Tubes; Negative Wheezes
Cardiac: Regular Rhythm and S1/S2
Genito-urinary: No Costovertebral Tender
Musculoskeletal: No Edema
Neuro: AO x 3
Psych: Calm
Data Reviewed
-
Total Time Spent with Patient (in minutes): 42
Labs: Labs Reviewed by me
--- NOTE | 2025-09-14 16:07 | PTCARENOTE ---
ambulated to bathroom for complete CHG bath, monitor leads changed, shaved face. tolerated activity on room air, pulse ox at end of bath 89%, back to 2l, settled in bed. ankle edema bilat, elevated pillows, SCDs maintained. VS noted stable. No
other change in assessment.
--- NOTE | 2025-09-14 18:29 | PTCARENOTE ---
ordered and awaiting dinner, repositioned, tolerating 2l nc. Using IS. No other changes in assessment.
[2025-09-14] MEDS: MELATONIN 5 MG PO (21:37)
[2025-09-14] MEDS: DILAUDID 0.5 MG IV (21:37)
--- NOTE | 2025-09-14 22:43 | PTCARENOTE ---
Assumed care of patient at 1900. AAOx3. ST/SR on the monitor - HR 90s-110s. POX 94% on 2L mid flow NC. Lungs diminished and coarse bilaterally. Tachypneic @ times w/ shallow breathing and BACA. Nonproductive moist occasional cough. R posterior chest
tube to suction w/ minimal sanguinous drainage. +BS, abdomen round/obese. Continent of bowel and bladder - voiding clear yellow urine in urinal. Palpable peripheral pulses. +1/2 LE edema bilaterally and trace hand edema bilaterally. LH IV capped.
[2025-09-15] VITALS (19 sets, daily range): BP systolic 94–143; BP diastolic 59–88; PULSE 115; O2SAT 96; BMI 33.6
[2025-09-15] MEDS: UNASYN IV ×4 (02:15→19:40)
[2025-09-15 04:11] LABS: Blood Urea Nitrogen 9 mg/dl (9-20); Calcium 7.3 mg/dl (8.4-10.2); Carbon Dioxide 26 mmol/L (22-30); Chloride 103 mmol/L (98-107); Estimated Creatinine Clearance > 125 ml/min; Glucose 94 mg/dl (70-99); Potassium 4.0 mmol/L (3.5-5.1); Sodium 134 mmol/L (135-145); eGFR > 60.00
[2025-09-15] MEDS: TYLENOL 650 MG PO (06:17)
[2025-09-15 06:28] LABS: Hematocrit 24.0 % (39.0-52.0); Hemoglobin 8.0 g/dL (13.0-18.0); Mean Corp Hgb Conc. 33.3 g/dL (33.0-37.0); Mean Corpuscular Volume 80.5 fL (80.0-94.0); Platelet Count 389 10^3/uL (130-400); Red Cell Dist. Width 14.4 % (11.5-14.5)
[2025-09-15] MEDS: PROTONIX 40 MG PO ×2 (08:00→19:39)
[2025-09-15] MEDS: MUCINEX 1200 MG PO ×2 (08:00→19:38)
[2025-09-15] MEDS: TESSALON PERLES 200 MG PO ×2 (08:00→19:39)
[2025-09-15] MEDS: LIPITOR 20 MG PO (08:01)
[2025-09-15] MEDS: SENOKOT-S PO (08:01)
[2025-09-15] MEDS: LOVENOX 80 MG SC ×2 (08:06→19:40)
--- NOTE | 2025-09-15 08:30 | PTCARENOTE ---
recd 0715 handoff in room, CT to water seal and 20 cm suction. VS stable. Aware of plans for the day. Needed to use BSC somewhat urgently for loose BM, reviewed abx with providers, order pending for probiotics. Otherwise assessed as noted, no
distress, in better spirits than yesterday.
[2025-09-15] MEDS: DUONEB 3 ML INH (08:59)
--- NOTE | 2025-09-15 08:59 | W.PN.ID1 ---
Date of Service
Date of Service: September 15, 2025
Today's Communication
- Continue unasyn while inpatient, ; transition to oral augmentin 875/125 mg po bid on discharge
Assessment / Plan
Right sided empyema
- Cultures with Strep. viridans
- Hx of (L) sided empyema (07/2020) - resolved on follow up imaging
PE left lower lobe pulmonary artery
Leukocytosis; ongoing
Recommendations:
- blood cultures : finalized negative
- Pleural fluid cultures with Strep. viridans.
- CT chest w/o IV contrast: right sided effusion almost resolved, new airspace dz l upper and lower lobes
- Continue unasyn while inpatient, ; transition to oral augmentin 875/125 mg po bid on discharge
- R lateral chest tube output - removed
- R posterior (second) chest tube - 285 cc yesterday
- Follow white count and temperature curve - improving
����������������������������������������������������������
Chief Complaint
-: Other (Right empyema secondary to Strep. viridans)
Subjective / Review of Systems
afebrile
bp stable
chest tube removed
tolerating current therapies
Vital Signs / Physical Exam
Vital Signs
Vital Signs
Temp Pulse Resp BP Pulse Ox
98.3 F 89 13 123/74 96
09/15/25 07:34 09/15/25 07:00 09/15/25 07:00 09/15/25 07:00 09/15/25 07:00
Physical Exam
Constitutional: No Acute Distress
Cardiovascular: Regular Rate and S1/S2; Negative Murmur or Rub
Pulmonary: Clear and Symmetric; Negative Wheezes or Rales
Gastrointestinal: Soft, Non Tender, Non Distended and Normal Bowel Sounds
Skin: Warm and Dry; Negative Rash or Jaundice
Objective Data
Lab Data
Lab Results
09/15/25 05:42
09/15/25 03:39
PT 15.4 Sec (11.4-14.6) H 09/10/25 10:24
INR 1.21 09/10/25 10:24
APTT 35.6 Sec (23.4-35.0) H 09/10/25 10:24
Estimated Creat Clear > 125 ml/min 09/15/25 03:39
Lactic Acid 1.9 mmol/L (0.7-2.0) 09/05/25 20:45
Total Bilirubin < 0.1 mg/dl (0.2-1.3) L 09/14/25 03:17
GGT 39 U/L (15-73) 09/06/25 09:33
AST 67 U/L (17-59) H 09/14/25 03:17
ALT 56 U/L (0-50) H 09/14/25 03:17
Alkaline Phosphatase 77 U/L (38-126) 09/14/25 03:17
Most recent labs reviewed.
Micro Results:
09/06/25 14:24 Fungal Smear - Final
Pleural Fluid No yeast or fungal elements seen.
Fungal Culture - Preliminary
Culture in progress.
Positive cultures are reported as soon as detected.
Final report to follow in four to five weeks.
09/05/25 20:45 Blood Culture - Final
Blood/Venous No Growth - Final Report
09/05/25 20:45 Blood Culture - Final
Blood/Venous No Growth - Final Report
09/08/25 10:59 Respiratory Culture - Final
Sputum Usual Respiratory Cheri
Gram Stain - Final
09/06/25 14:24 Body Fluid Culture - Final
Thoracentesis Fluid Viridans Streptococcus Group
Gram Stain - Final
09/06/25 14:24 Acid Fast Bacilli Smear - Preliminary
Pleural Fluid Acid Fast Bacilli Culture - Preliminary
12/10/25 10:33 Legionella Urinary Antigen - Final
Urine Negative for Legionella pneumophila Serogroup 1 antigen.
A negative result does not rule out the possiblity of
Legionella infection due to other serogroups or species of
Legionella. Clinical correlation is recommended.
Streptococcus pneumoniae Antigen (M - Final
Negative for Streptococcus pneumoniae antigen.
A negative result does not exclude infection with
Streptococcus pneumoniae. Clinical correlation is
recommended.
09/06/25 03:05 Nasal Screen MRSA (PCR) - Final
Nose MRSA not detected - performed by PCR methodology.
Imaging:
09/05/2025 CT chest PE study: moderate to large right pleural effusion with multiple loculations concerning for empyema. Confluent areas of parenchymal opacity within the right lung, most suggestive of compressive atelectasis. Please see full
dictation for additional detail.
09/11 CXR LARGE COMPLEX LOCULATED RIGHT PLEURAL EFFUSION (empyema) in the inferior and posterior right pleural space. Large dense right lower lobe airspace consolidation consistent with severe pneumonia.
09/12: CXR: persistent though diminished R opacity; small R lateral pneumothorax
--- NOTE | 2025-09-15 09:25 | W.PN.NEPH.PH ---
Today's Communication / Plan
-
follow BMP
Assessment/Plan
-
Impression:
Hyponatremia
Acute hypoxic respiratory failure with right large empyema status post right chest tube placement
Pulmonary embolism
Hypertension
BPH
Strep viridans bacteremia
Plan:
no FR
follow BMP
no ivf or diuretics at this time
-
-
Date of Service: September 15, 2025
CC / HPI / ROS
-
Chief Complaint:
hyponatremia
History of Present Illness:
Na 134 fairly stable
excellent UOP, polyuric
BP stable improved
1 right chest tubes
Review of Systems:
mild SOB
no CP
Labs
-
Labs:
WBC 12.0 10^3/uL (4.8-10.8) H 09/15/25 05:42
RBC 2.98 10^6/uL (4.70-6.10) L 09/15/25 05:42
Hgb 8.0 g/dL (13.0-18.0) L D 09/15/25 05:42
Hct 24.0 % (39.0-52.0) L 09/15/25 05:42
Plt Count 389 10^3/uL (130-400) 09/15/25 05:42
Sodium 134 mmol/L (135-145) L 09/15/25 03:39
Potassium 4.0 mmol/L (3.5-5.1) 09/15/25 03:39
Chloride 103 mmol/L (98-107) 09/15/25 03:39
Carbon Dioxide 26 mmol/L (22-30) 09/15/25 03:39
BUN 9 mg/dl (9-20) 09/15/25 03:39
Creatinine 0.6 mg/dL (0.7-1.3) L 09/15/25 03:39
eGFR > 60.00 09/15/25 03:39
Glucose 94 mg/dl (70-99) 09/15/25 03:39
Calcium 7.3 mg/dl (8.4-10.2) L 09/15/25 03:39
Phosphorus 3.7 mg/dl (2.5-4.5) 09/10/25 04:34
Vgv-C-Bamdpypeuxd Pept 339 pg/ml 09/05/25 19:55
Albumin 1.8 g/dl (3.5-5.0) L 09/14/25 03:17
Physical Exam
-
Vital Signs:
Vital Signs
Temp Pulse Resp BP Pulse Ox
98.3 F 89 13 123/74 96
09/15/25 07:34 09/15/25 07:00 09/15/25 07:00 09/15/25 07:00 09/15/25 07:00
Cardiovascular:: Regular rate and rhythm
Respiratory:: Bilateral: Coarse
Lung Excursion:: Normal
Abdomen:: Nontender and Soft
Bowel Sounds:: Normal
Extremity Edema:: None: Bilateral:
[2025-09-15 09:53] LABS: Aldosterone/Renin Activ Ratio 0.2 ratio (<=25.0); Renin Activity Results 106.1 ng/mL/hr
--- NOTE | 2025-09-15 09:57 | PN.IRAD.UPD ---
Update Note - IRAD
- -
Chest tube A removed bedside per . Cleaned, occlusive dressing applied. Patient tolerated well and nurse notified.
--- NOTE | 2025-09-15 10:30 | PTCARENOTE ---
IR bedside, CT removed, dressing applied, tolerated well.
--- NOTE | 2025-09-15 12:17 | W.PN.PUL3 ---
Today's Communication / Plan
-
- Remove chest tube
- Follow-up chest x-ray in a.m.
-Resume Lovenox SQ twice daily, H&H in a.m.
- Increase activity as tolerated
Assessment
-
A 60 year old male with a PMH of prior left sided empyema (2019), hypertension, hyperlipidemia, GERD and anxiety who started having significant shortness of breath upon exertion which worsened with any activity during a trip to [facility]. Patient
contacted Dr. Trinidad who advised him to return back to the [place] given prior history of empyema. Upon arrival to the ED, patient was found to be afebrile with tachycardia (HR 130), tachypnea (RR 24-30) and leukocytosis (WBC 31.3), O2 90% on room air
which only improved to 90-93% with 6 L O2 supplementation. Trops negative. CTA chest showed moderate to large right-sided pleural effusion with multiple loculations with confluent parenchymal opacities within the right lung likely compressive
atelectasis however underlying pneumonia also possible. Also a suspicious pulmonary embolism involving a left lower lobe pulmonary artery. Patient was stared on Zosyn and Vancomycin in the ED, and given albuterol, ipratropium, Decadron and started
on heparin drip for the pulmonary embolism. Patient was subsequently admitted to the ICU, however after drainage/chest tube placement on 09/06/25, was deemed stable for downgrade to IMU. Given significant shortness of breath after first
instillation of tPA/dornase through chest tube, he was re-upgraded back to ICU.
#1. Right-sided loculated empyema with severe right lower lobe pneumonia.
- Strep viridans noted in pleural fluid cultures
- S/p IR guided chest tube placement on 09/06, tPA/DNase given x5. Removed on 09/12.
- F/u CT with large posterior collection, s/p Chest tube #B placed 09/11, >1.5 ltr sanguinous output since. Continue to suction. No air leak. S/p tPA/DNAse x 1 on 09/13, hemorrhagic output with drop in H/H, hold additional tPA/DNAse.
- 09/14. f/u CT chest with significantly improved pleural effusion
-09/15, 100 cc output over last 24 hours, consult IR to remove chest tube
- ID consulted; considering that he has had an empyema approximately 5 years ago, immunoglobulins checked and showed mildly reduced IgG at 640 (normal is 700-1600 mg/dL); IgG subclasses pending. HIV negative.
- F/u CXR in a.m.
#2. Acute pulmonary Embolism involving left lower lobe without evidence of RV strain
- Suspect provoked in the setting of recent travel as well as active infection/empyema
- Lovenox was resumed at reduced dose on 09/13, again drop in Hb noted requiring 1 unit PRBC.
- Resume Lovenox at reduced dose on 09/15
#3. Acute respiratory failure with hypoxia due to above in setting acute PE and pneumonia/empyema
- Supplemental O2 as needed
- Follow-up CT with improving neural effusion however pneumonia seem to have somewhat progressed now into left lung. Discussed with ID service on 09/14, continue current treatment for now.
- Follow-up chest x-ray in a.m.
#4. Acute on chronic hyponatremia
- Improved
#5. Anemia, acute blood loss
- Sanguinous chest tube output, had been on Lovenox therapeutic dose
- Intermittently had been holding Lovenox. Hemoglobin 8.0 on 09/15, resume Lovenox
Other medical diagnoses:
- Small hiatal hernia
- Former tobacco smoker (no evidence of COPD per PFTs, with FEV1/FVC 80 (105% predicted) via PFT from April 2023)
- History of hypertension/hyperlipidemia
- History of Iyer's esophagus
- History of left-sided pneumonia with empyema s/p chest tube (July 2020 - pleural fluid Cx grew Streptococcus mitis at the time)
Patient stable for transfer to IMU
Total time spent on this consultation/encounter __45__ minutes which includes review of history, physical exam, medications, laboratory data, personal review of imaging, extensive review of outpatient records, discussion with care team and
respiratory therapy.
Data:
CTA Chest 09/05/2025:
Moderate to large right pleural effusion with multiple loculations. Given the patient's clinical history, findings raise concern for empyema.
Confluent areas of parenchymal opacity within the right lung, most suggestive of compressive atelectasis given the morphologic appearance. However, underlying pneumonia is also possible.
Findings considered highly suspicious for pulmonary embolism involving the left lower lobe pulmonary artery, as described above. Most proximal branching point is the left lower lobe lobar pulmonary artery.
No convincing evidence for right-sided pulmonary embolism.
No significant left pleural effusion.
Fatty infiltration the liver.
CT chest with IV contrast 09/10/2025:
1. MODERATE to LARGE VERY COMPLEX LOCULATED RIGHT PLEURAL EFFUSION in the inferior and posterior right pleural space (either infectious or malignant in etiology).
2. Large right lower lobe airspace consolidation and central bronchial segmental occlusion in the right lower lobe most suggestive of SEVERE RIGHT LOWER LOBE PNEUMONIA.
3. Right pleural chest tube in the inferolateral right pleural space.
4. Mild groundglass airspace opacity in the left upper and lower lobes (either mild pneumonia or atelectasis).
5. Small pericardial effusion.
6. Mild mediastinal lymphadenopathy.
7. Moderate calcific atherosclerotic plaque in the coronary arteries.
8. Small hiatal hernia.
Subjective Data
-
Date of Service:
Date of Service: September 15, 2025
Chief Complaint: Pulmonary Follow Up
Subjective:
Comfortably lying in bed in no acute distress.
Review of Systems
Genitourinary: Other (All 14 systems reviewed and negative except as stated above in the history of present illness.)
Objective Data
Data Reviewed
Vital Signs / I&O / Oxygen:
Vital Signs
Temp Pulse Resp BP Pulse Ox
98.3 F 89 13 123/74 96
09/15/25 07:34 09/15/25 07:00 09/15/25 07:00 09/15/25 07:00 09/15/25 07:00
Intake and Output
09/14/25 09/15/25 09/16/25
06:59 06:59 06:59
Intake Total 2470 / 2470 2330 / 2330
Output Total 5550 / 5550 4335 / 4335
Balance -3080 / -3080 -2004 /
SaO2 96
Nasal Cannula flow liters per 2
minute
Physical Exam
General: Respiratory Distress (negative), Comfortable, Chills (negative) and Other (Appears somnolent)
HEENT: Normocephalic, Anicteric and Other (Thick neck)
Cardiovascular: S1-S2 and Peripheral Edema (1+ b/l )
Respiratory: Wheeze (negative), Crackles (negative), Rhonchi (Right hemithorax) and Chest Tube (Right hemithorax, on -20 cmH2O with no airleak)
GI: Soft, Distended (Abdominal obesity), Non Tender and Normal Bowel Sounds
Neurology: Tremors (negative) and Other (Somnolent but easily arousable to voice and answering all questions appropriately)
Skin: Warm, Dry, Cyanosis (negative) and Jaundice (negative)
Labs/Micro/Reports
Lab Data
09/15/25 05:42
09/15/25 03:39
[2025-09-15] MEDS: LASIX 20 MG IV (12:40)
[2025-09-15] MEDS: VISBIOME 1 CAP PO (12:51)
--- NOTE | 2025-09-15 14:28 | W.PN.HOSP.TC ---
Today's Communication/Plan
-
Wean O2 further
continue Abx
transfer to M/S floor
Assessment / Plan
Assessment / Plan
60yo M with PMHx of anxiety, HTN, HLD, atopic d/o, Hx of L empyema, MARGARET mass s/p bronchoscopy and biopsy in 2022 neg for malignant cells came after developing worsening SOB and excessive sputum while travelin to [place]. Had recently diagnozed with
bronchitis and treated with oral Abx as per his PCP. Found moderate loculated R pleural effusion and leukocytosis concerning for pneumonia with empyema and pulmonary embolism
Assessment:
Acute hypoxic respiratory failure (tachypnea, hypoxia 2/2 sepsis (leukocytosis, hypoxia, R pleural effusion) due to Pneumonia, CAP with R sided empyema
Hx of (L) sided empyema (07/2020)
- s/p 2 chest tubes (Chest tube A placed 09/06, Chest tube B 09/11). Chest tube A removed 09/12. Chest Tube B removed 09/15.
- monitor drainage, as needed tPA
- Culture with Viridans strep; ID following. Continue Unasyn, day 08/18. Eventual transition to Augmentin at discharge. Probiotic daily.
- CT chest 09/14: new airspace disease in the left upper lobe and the left lower lobe. These are likely additional areas of pneumonia. Right lower lobe pneumonia has improved. Right-sided pleural effusion is almost completely gone
- IS/Acapella when able
- follow ID and pulm
- OP Immunology for decreased IGG levels
Acute hyponatremia
- studies indicated SIADH
- s/p fluid restriction now stopped
- s/p Samsca per Nephrology
- follow BMP, Na 134 today
Acute blood loss anemia in setting of bloody chest tube output from empyema
- s/p 1 unit PRBC; Hb 8.0
L acute provoked pulmonary embolism
- likely related to prolonged travel and associated immobility
- CT without RHS
- Echo: normal biventricular size and function without regional wall motion abnormality
- Dopplers negative
- continue weight based therapeutic Lovenox eventual switch to DOAC for 3-6 months and also heme OP f/u for hypercoagulability testing
dilated aortic root
- 4.4 cm
- repeat Echo in 6-12 mo
Fatty liver
- low fat diet
- cont statin
Hyperkalemia
- unclear reason
- start low potassium diet
- Follow BMP, hold ACEi
Elevated alk.phos
- no overt RUQ abd pain
Essential HTN
GERD
- PPI BID
HLD - statin
Atopic D/O
Hypocalcemia
- replete
PReDM
Obesity
Metabolic syndrome
- low fat/carb diet
- BMI 35.1
- lose weight
DVT ppx: Lovenox
Code: Full
Anticipated Discharge: 24 - 48 hours
Subjective/Interval History
-
Date of Service: September 15, 2025
Chest tube B removed
no fevers
denies SOB or CP
on 2L NC
Objective Data
-
Labs:
Laboratory Results
09/15/25 09/15/25
03:39 05:42
WBC Cancelled 12.0 H
Hgb Cancelled 8.0 L D
Hct Cancelled 24.0 L
Plt Count Cancelled 389
Sodium 134 L
Potassium 4.0
Chloride 103
Carbon Dioxide 26
BUN 9
Creatinine 0.6 L
Glucose 94
Calcium 7.3 L
Vital Signs:
Vital Signs
Temp Pulse Resp BP Pulse Ox
97.4 F 113 13 111/66 96
09/15/25 12:23 09/15/25 12:40 09/15/25 07:00 09/15/25 12:40 09/15/25 08:00
I&O
09/14/25 09/15/25 09/16/25
06:59 06:59 06:59
Intake Total 2470 / 2470 2330 / 2330
Output Total 5550 / 5550 4335 / 4335
Balance -3080 / -3080 -2004 /
Physical Exam
-
General: No Apparent Distress
HEENT: Normocephalic and Atraumatic
Respiratory: Negative Wheezes
Cardiac: Regular Rhythm and S1/S2
GI: Soft and Nontender
Genito-urinary: No Costovertebral Tender
Neuro: AO x 3
Psych: Calm
Data Reviewed
-
Total Time Spent with Patient (in minutes): 42
Labs: Labs Reviewed by me
--- NOTE | 2025-09-15 14:36 | TRANSFER ---
transferred to [id number] with all belongings.
--- NOTE | 2025-09-15 14:45 | TRANSFER ---
Pt arrives from ICU. pt aaox3. on 2L midflow cannula. no pressing issues at the moment. VSS. pt oriented to unit. plan of care continues to be followed.
[2025-09-15] MEDS: MELATONIN 5 MG PO (21:29)
[2025-09-16] VITALS (7 sets, daily range): BP systolic 100–137; BP diastolic 60–90; PULSE 119–121; O2SAT 97
[2025-09-16] MEDS: UNASYN IV ×4 (01:55→20:35)
[2025-09-16] MEDS: PROTONIX 40 MG PO ×2 (07:52→20:35)
[2025-09-16] MEDS: LIPITOR 20 MG PO (07:52)
[2025-09-16] MEDS: TESSALON PERLES 200 MG PO ×2 (07:52→20:35)
[2025-09-16] MEDS: MUCINEX 1200 MG PO ×2 (07:52→20:34)
[2025-09-16] MEDS: LOVENOX 80 MG SC (07:53)
[2025-09-16 08:20] LABS: Hematocrit 24.0 % (39.0-52.0); Hemoglobin 8.0 g/dL (13.0-18.0); Mean Corp Hgb Conc. 33.3 g/dL (33.0-37.0); Mean Corpuscular Volume 82.8 fL (80.0-94.0); Platelet Count 463 10^3/uL (130-400); Red Cell Dist. Width 14.5 % (11.5-14.5)
[2025-09-16 09:54] LABS: Blood Urea Nitrogen 8 mg/dl (9-20); Calcium 7.1 mg/dl (8.4-10.2); Carbon Dioxide 30 mmol/L (22-30); Chloride 104 mmol/L (98-107); Estimated Creatinine Clearance > 125 ml/min; Glucose 91 mg/dl (70-99); Potassium 4.1 mmol/L (3.5-5.1); Sodium 135 mmol/L (135-145); eGFR > 60.00
[2025-09-16] MEDS: VISBIOME 1 CAP PO (10:18)
--- NOTE | 2025-09-16 11:01 | W.PN.NEPH.PH ---
Today's Communication / Plan
-
s/o
Assessment/Plan
-
Impression:
Hyponatremia
Acute hypoxic respiratory failure with right large empyema status post right chest tube placement
Pulmonary embolism
Hypertension
BPH
Strep viridans bacteremia
Plan:
no FR
follow BMP
no ivf or diuretics needed at this time
will sign off
-
-
Date of Service: September 16, 2025
CC / HPI / ROS
-
Chief Complaint:
hyponatremia
History of Present Illness:
Na 135 fairly stable
excellent UOP, polyuric with lasix
BP stable improved
Review of Systems:
no SOB
no CP
Labs
-
Labs:
WBC 13.7 10^3/uL (4.8-10.8) H 09/16/25 07:41
RBC 2.90 10^6/uL (4.70-6.10) L 09/16/25 07:41
Hgb 8.0 g/dL (13.0-18.0) L 09/16/25 07:41
Hct 24.0 % (39.0-52.0) L 09/16/25 07:41
Plt Count 463 10^3/uL (130-400) H 09/16/25 07:41
Sodium 135 mmol/L (135-145) 09/16/25 07:41
Potassium 4.1 mmol/L (3.5-5.1) 09/16/25 07:41
Chloride 104 mmol/L (98-107) 09/16/25 07:41
Carbon Dioxide 30 mmol/L (22-30) 09/16/25 07:41
BUN 8 mg/dl (9-20) L 09/16/25 07:41
Creatinine 0.7 mg/dL (0.7-1.3) 09/16/25 07:41
eGFR > 60.00 09/16/25 07:41
Glucose 91 mg/dl (70-99) 09/16/25 07:41
Calcium 7.1 mg/dl (8.4-10.2) L 09/16/25 07:41
Phosphorus 3.7 mg/dl (2.5-4.5) 09/10/25 04:34
Ska-L-Kegwadmxgay Pept 339 pg/ml 09/05/25 19:55
Albumin 1.8 g/dl (3.5-5.0) L 09/14/25 03:17
Physical Exam
-
Vital Signs:
Vital Signs
Temp Pulse Resp BP Pulse Ox
98.0 F 113 18 137/79 95
09/16/25 07:20 09/16/25 07:20 09/16/25 07:20 09/16/25 07:20 09/16/25 08:19
Cardiovascular:: Regular rate and rhythm
Respiratory:: Bilateral: Coarse
Lung Excursion:: Normal
Abdomen:: Nontender and Soft
Bowel Sounds:: Normal
Extremity Edema:: None: Bilateral:
--- NOTE | 2025-09-16 13:33 | W.PN.HOSP.TC ---
Today's Communication/Plan
-
IV Lasix x 1
repeat PT with stairs
DC planning
Assessment / Plan
Assessment / Plan
60yo M with PMHx of anxiety, HTN, HLD, atopic d/o, Hx of L empyema, MARGARET mass s/p bronchoscopy and biopsy in 2022 neg for malignant cells came after developing worsening SOB and excessive sputum while travelin to [place]. Had recently diagnozed with
bronchitis and treated with oral Abx as per his PCP. Found moderate loculated R pleural effusion and leukocytosis concerning for pneumonia with empyema and pulmonary embolism
Assessment:
Acute hypoxic respiratory failure (tachypnea, hypoxia 2/2 sepsis (leukocytosis, hypoxia, R pleural effusion) due to Pneumonia, CAP with R sided empyema
Hx of (L) sided empyema (07/2020)
- s/p 2 chest tubes (Chest tube A placed 09/06, Chest tube B 09/11). Chest tube A removed 09/12. Chest Tube B removed 09/15.
- monitor drainage, as needed tPA
- Culture with Viridans strep; ID following. Continue Unasyn, day 09/17. Eventual transition to Augmentin at discharge. Probiotic daily.
- CT chest 09/14: new airspace disease in the left upper lobe and the left lower lobe. These are likely additional areas of pneumonia. Right lower lobe pneumonia has improved. Right-sided pleural effusion is almost completely gone
- CXR 09/16 stable
- IS/Acapella when able
- OP Immunology for decreased IGG levels
- OP Pulm f/u in 2 weeks
Acute hyponatremia
- studies indicated SIADH
- s/p fluid restriction now stopped
- s/p Samsca per Nephrology
- follow BMP, Na 134 today
Acute blood loss anemia in setting of bloody chest tube output from empyema
- s/p 1 unit PRBC; Hb 8.0
L acute provoked pulmonary embolism
- likely related to prolonged travel and associated immobility
- CT without RHS
- Echo: normal biventricular size and function without regional wall motion abnormality
- Dopplers negative
- continue weight based therapeutic Lovenox eventual switch to DOAC for 3-6 months and also heme OP f/u for hypercoagulability testing. transition to Eliquis - starter pack at discharge
dilated aortic root
- 4.4 cm
- repeat Echo in 6-12 mo
Fatty liver
- low fat diet
- cont statin
Hyperkalemia
- unclear reason
- start low potassium diet
- Follow BMP, hold ACEi
Elevated alk.phos
- no overt RUQ abd pain
Essential HTN
GERD
- PPI BID
HLD - statin
Atopic D/O
Hypocalcemia
- replete
PReDM
Obesity
Metabolic syndrome
- low fat/carb diet
- BMI 35.1
- lose weight
DVT ppx: Lovenox
Code: Full
Anticipated Discharge: Within 24 hours
Subjective/Interval History
-
Date of Service: September 16, 2025
off O2, 90-92% resting and >89 with witness ambulation
denies cp, sob or lightheadedness
Objective Data
-
Labs:
Laboratory Results
09/16/25
07:41
WBC 13.7 H
Hgb 8.0 L
Hct 24.0 L
Plt Count 463 H
Sodium 135
Potassium 4.1
Chloride 104
Carbon Dioxide 30
BUN 8 L
Creatinine 0.7
Glucose 91
Calcium 7.1 L
Vital Signs:
Vital Signs
Temp Pulse Resp BP Pulse Ox
98.3 F 114 18 100/60 100
09/16/25 11:17 09/16/25 11:17 09/16/25 11:17 09/16/25 11:17 09/16/25 11:17
I&O
09/15/25 09/16/25 09/17/25
06:59 06:59 06:59
Intake Total 2330 / 2330 1245 / 1245
Output Total 4335 / 4335 1875 / 1875
Balance -2004 / -2004 -630 / -630
Physical Exam
-
General: No Apparent Distress
HEENT: Normocephalic and Atraumatic
Respiratory: Negative Wheezes
Cardiac: Regular Rhythm and S1/S2
GI: Soft
Neuro: AO x 3
Psych: Calm
Data Reviewed
-
Total Time Spent with Patient (in minutes): 42
Labs: Labs Reviewed by me
--- NOTE | 2025-09-16 15:17 | W.PN.PUL3 ---
Today's Communication / Plan
-
- Lasix 20 mg IV x 1
- Transition to p.o. Eliquis, discontinued Lovenox
- Assess for need for home oxygen
- Tentative discharge 09/17
- Outpatient follow-up with [facility] pulmonary clinic
Assessment
-
A 60 year old male with a PMH of prior left sided empyema (2019), hypertension, hyperlipidemia, GERD and anxiety who started having significant shortness of breath upon exertion which worsened with any activity during a trip to [facility]. Patient
contacted Dr. Trinidad who advised him to return back to the [place] given prior history of empyema. Upon arrival to the ED, patient was found to be afebrile with tachycardia (HR 130), tachypnea (RR 24-30) and leukocytosis (WBC 31.3), O2 90% on room air
which only improved to 90-93% with 6 L O2 supplementation. Trops negative. CTA chest showed moderate to large right-sided pleural effusion with multiple loculations with confluent parenchymal opacities within the right lung likely compressive
atelectasis however underlying pneumonia also possible. Also a suspicious pulmonary embolism involving a left lower lobe pulmonary artery. Patient was stared on Zosyn and Vancomycin in the ED, and given albuterol, ipratropium, Decadron and started
on heparin drip for the pulmonary embolism. Patient was subsequently admitted to the ICU, however after drainage/chest tube placement on 09/06/25, was deemed stable for downgrade to IMU. Given significant shortness of breath after first
instillation of tPA/dornase through chest tube, he was re-upgraded back to ICU.
#1. Right-sided loculated empyema with severe right lower lobe pneumonia.
- Strep viridans noted in pleural fluid cultures
- S/p IR guided chest tube placement on 09/06, tPA/DNase given x5. Removed on 09/12.
- F/u CT with large posterior collection, s/p Chest tube #B placed 09/11, >1.5 ltr sanguinous output since. Continue to suction. No air leak. S/p tPA/DNAse x 1 on 09/13, hemorrhagic output with drop in H/H, held additional tPA/DNAse.
- 09/14. f/u CT chest with significantly improved pleural effusion
-09/15, 100 cc output over last 24 hours, consulted IR to remove chest tube
- ID consulted; considering that he has had an empyema approximately 5 years ago, immunoglobulins checked and showed mildly reduced IgG at 640 (normal is 700-1600 mg/dL); IgG subclasses pending. HIV negative.
- F/u CXR stable, doing well on room air
#2. Acute pulmonary Embolism involving left lower lobe without evidence of RV strain
- Suspect provoked in the setting of recent travel as well as active infection/empyema
- Switch Lovenox to Eliquis.
#3. Acute respiratory failure with hypoxia due to above in setting acute PE and pneumonia/empyema
- Supplemental O2 as needed, doing well on room air
- Assess for need for home oxygen in a.m.
- Trace pedal edema, will give Lasix 20 mg IV x 1
#4. Acute on chronic hyponatremia
- Improved
#5. Anemia, acute blood loss
- Sanguinous chest tube output, had been on Lovenox therapeutic dose
- Intermittently had been holding Lovenox. Hemoglobin 8.0 on 09/15, resume Lovenox
Other medical diagnoses:
- Small hiatal hernia
- Former tobacco smoker (no evidence of COPD per PFTs, with FEV1/FVC 80 (105% predicted) via PFT from April 2023)
- History of hypertension/hyperlipidemia
- History of Iyer's esophagus
- History of left-sided pneumonia with empyema s/p chest tube (July 2020 - pleural fluid Cx grew Streptococcus mitis at the time)
Patient stable for transfer to IMU
Total time spent on this consultation/encounter __48__ minutes which includes review of history, physical exam, medications, laboratory data, personal review of imaging, extensive review of outpatient records, discussion with care team and
respiratory therapy.
Data:
CTA Chest 09/05/2025:
Moderate to large right pleural effusion with multiple loculations. Given the patient's clinical history, findings raise concern for empyema.
Confluent areas of parenchymal opacity within the right lung, most suggestive of compressive atelectasis given the morphologic appearance. However, underlying pneumonia is also possible.
Findings considered highly suspicious for pulmonary embolism involving the left lower lobe pulmonary artery, as described above. Most proximal branching point is the left lower lobe lobar pulmonary artery.
No convincing evidence for right-sided pulmonary embolism.
No significant left pleural effusion.
Fatty infiltration the liver.
CT chest with IV contrast 09/10/2025:
1. MODERATE to LARGE VERY COMPLEX LOCULATED RIGHT PLEURAL EFFUSION in the inferior and posterior right pleural space (either infectious or malignant in etiology).
2. Large right lower lobe airspace consolidation and central bronchial segmental occlusion in the right lower lobe most suggestive of SEVERE RIGHT LOWER LOBE PNEUMONIA.
3. Right pleural chest tube in the inferolateral right pleural space.
4. Mild groundglass airspace opacity in the left upper and lower lobes (either mild pneumonia or atelectasis).
5. Small pericardial effusion.
6. Mild mediastinal lymphadenopathy.
7. Moderate calcific atherosclerotic plaque in the coronary arteries.
8. Small hiatal hernia.
Subjective Data
-
Date of Service:
Date of Service: September 16, 2025
Chief Complaint: Pulmonary Follow Up
Subjective:
Comfortably sitting in chair in no acute distress.
Review of Systems
Genitourinary: Other (No new symptoms reported.)
Objective Data
Data Reviewed
Vital Signs / I&O / Oxygen:
Vital Signs
Temp Pulse Resp BP Pulse Ox
98.3 F 121 18 108/65 97
09/16/25 15:09 09/16/25 15:09 09/16/25 15:09 09/16/25 15:09 09/16/25 15:09
Intake and Output
12/09/16/25 09/17/25
06:59 06:59 06:59
Intake Total 2330 / 2330 1245 / 1245
Output Total 4335 / 4335 1875 / 1875
Balance -2005 / -2004 -630 / -630
SaO2 97
Nasal Cannula flow liters per 2
minute
Physical Exam
General: Respiratory Distress (negative), Comfortable, Chills (negative) and Other (Appears somnolent)
HEENT: Normocephalic, Anicteric and Other (Thick neck)
Cardiovascular: S1-S2 and Peripheral Edema (Trace edema)
Respiratory: Wheeze (negative), Crackles (negative), Rhonchi (Right hemithorax) and Chest Tube (Removed)
GI: Soft, Distended (Abdominal obesity), Non Tender and Normal Bowel Sounds
Neurology: Tremors (negative) and Other (Somnolent but easily arousable to voice and answering all questions appropriately)
Skin: Warm, Dry, Cyanosis (negative) and Jaundice (negative)
Labs/Micro/Reports
Lab Data
09/16/25 07:41
09/16/25 07:41
[2025-09-16] MEDS: LASIX 20 MG IV (15:39)
[2025-09-16] MEDS: ELIQUIS 5 MG PO (20:34)
[2025-09-16] MEDS: MELATONIN 5 MG PO (22:14)
[2025-09-17] VITALS (8 sets, daily range): BP systolic 114–128; BP diastolic 68–80
[2025-09-17] MEDS: UNASYN IV ×3 (01:51→14:19)
[2025-09-17 07:10] LABS: Hematocrit 22.6 % (39.0-52.0); Hemoglobin 7.5 g/dL (13.0-18.0); Mean Corp Hgb Conc. 33.2 g/dL (33.0-37.0); Mean Corpuscular Volume 80.7 fL (80.0-94.0); Platelet Count 536 10^3/uL (130-400); Red Cell Dist. Width 14.6 % (11.5-14.5)
[2025-09-17 07:47] LABS: Blood Urea Nitrogen 9 mg/dl (9-20); Calcium 7.1 mg/dl (8.4-10.2); Carbon Dioxide 24 mmol/L (22-30); Chloride 106 mmol/L (98-107); Estimated Creatinine Clearance > 125 ml/min; Glucose 102 mg/dl (70-99); Potassium 4.0 mmol/L (3.5-5.1); Sodium 135 mmol/L (135-145); eGFR > 60.00
[2025-09-17] MEDS: VISBIOME 1 CAP PO (07:53)
[2025-09-17] MEDS: MUCINEX 1200 MG PO (07:53)
[2025-09-17] MEDS: TESSALON PERLES 200 MG PO (07:54)
[2025-09-17] MEDS: ELIQUIS 5 MG PO (07:54)
[2025-09-17] MEDS: LIPITOR 20 MG PO (07:54)
[2025-09-17] MEDS: PROTONIX 40 MG PO (07:54)
--- NOTE | 2025-09-17 10:05 | W.PN.HOSP.TC ---
Today's Communication/Plan
-
dc to home/VN
Eliquis
Home O2
Pulm f/u OP
Assessment / Plan
Assessment / Plan
60yo M with PMHx of anxiety, HTN, HLD, atopic d/o, Hx of L empyema, MARGARET mass s/p bronchoscopy and biopsy in 2022 neg for malignant cells came after developing worsening SOB and excessive sputum while travelin to [place]. Had recently diagnozed with
bronchitis and treated with oral Abx as per his PCP. Found moderate loculated R pleural effusion and leukocytosis concerning for pneumonia with empyema and pulmonary embolism
Assessment:
Acute hypoxic respiratory failure (tachypnea, hypoxia 2/2 sepsis (leukocytosis, hypoxia, R pleural effusion) due to Pneumonia, CAP with R sided empyema
Hx of (L) sided empyema (07/2020)
- s/p 2 chest tubes (Chest tube A placed 09/06, Chest tube B 09/11). Chest tube A removed 09/12. Chest Tube B removed 09/15.
- Culture with Viridans strep; ID following. Continue Unasyn, day 09/17. Transition to Augmentin at discharge. Probiotic daily.
- CT chest 09/14: new airspace disease in the left upper lobe and the left lower lobe. These are likely additional areas of pneumonia. Right lower lobe pneumonia has improved. Right-sided pleural effusion is almost completely gone
- CXR 09/16 stable
- IS/Acapella when able
- OP Immunology for decreased IGG levels
- OP Pulm f/u in 2 weeks
- home O2 evaluation: patient 92% at rest. Patient 87% with activity. 2L required to recover patient to 92% with exertion. Oxygen will help to improve hypoxemia. Patient is mobile within the home. DuoNeb therapy has been tried and is ineffective in
treating hypoxemia related symptoms. Oxygen is needed to improve symptoms.
Acute hyponatremia
- studies indicated SIADH
- s/p fluid restriction now stopped
- s/p Samsca per Nephrology
- follow BMP, Na 135 today
Acute blood loss anemia in setting of bloody chest tube output from empyema
- Hb 7.5, additional 1 unit ordered
L acute provoked pulmonary embolism
- likely related to prolonged travel and associated immobility
- CT without RHS
- Echo: normal biventricular size and function without regional wall motion abnormality
- Dopplers negative
- continue Eliquis - starter pack. 3-6 months duration and also pulm/heme OP f/u for hypercoagulability testing
dilated aortic root
- 4.4 cm
- repeat Echo in 6-12 mo
Fatty liver
- low fat diet
- cont statin
Hyperkalemia
- unclear reason
- start low potassium diet
- Follow BMP, hold ACEi
Elevated alk.phos
- no overt RUQ abd pain
Essential HTN
GERD
- PPI BID
HLD - statin
Atopic D/O
Hypocalcemia
- replete
PReDM
Obesity
Metabolic syndrome
- low fat/carb diet
- BMI 35.1
- lose weight
DVT ppx: Eliquis
Code: Full
More than 30 minutes spent in discharge including
Final examination of the patient
Summarizing hospital stay
Instructions for continuing care to all relevant caregivers
Preparation of discharge records, prescriptions, and referral forms
Total time spent (in minutes): 41
Anticipated Discharge: Today
Subjective/Interval History
-
Date of Service: September 17, 2025
Hb 7.5; 1 unit pRBC ordered
denies SOB or CP
Objective Data
-
Labs:
Laboratory Results
09/17/25
06:31
WBC 11.3 H
Hgb 7.5 L
Hct 22.6 L
Plt Count 536 H
Sodium 135
Potassium 4.0
Chloride 106
Carbon Dioxide 24
BUN 9
Creatinine 0.7
Glucose 102 H
Calcium 7.1 L
Vital Signs:
Vital Signs
Temp Pulse Resp BP Pulse Ox
98.2 F 117 17 114/79 95
09/17/25 07:33 09/17/25 07:33 09/17/25 07:33 09/17/25 07:33 09/17/25 09:37
I&O
09/16/25 09/17/25 09/18/25
06:59 06:59 06:59
Intake Total 1245 / 1245 1320 / 1320
Output Total 1875 / 1875 2200 / 2200
Balance -630 / -630 -880 / -880
Physical Exam
-
General: No Apparent Distress
HEENT: Normocephalic and Atraumatic
Respiratory: Negative Wheezes
Cardiac: Regular Rhythm and S1/S2
GI: Soft
Neuro: AO x 3
Psych: Calm
Data Reviewed
-
Total Time Spent with Patient (in minutes): 41
Labs: Labs Reviewed by me
--- NOTE | 2025-09-17 10:08 | W.DCSUMMARY ---
Discharge Summary
Discharge Data
Date of Admission: 09/05/25
Date of Discharge: 09/17/25
-
Pending Results: No
Hospital Course
60 y/o M, prior history of empyema, GERD/PUD, HTN, HLD presented 09/05 with SOB x 5 days. Patient was found to have R sided empyema and Left lung PE. Patient was started on empiric Abx and therapeutic Lovenox. He had 2 chest tubes for fluid removal
and cultures grew Viridans Strep. ID was consulted and recommended 21 days of Augmentin total. Later Lovenox was transition to Eliquis. Home O2 was setup.
Patients course was complicated by SIADH/Hyponatremia requiring Samsca. Also patient had bloody chest tube output causing blood loss anemia requiring 2 units blood.
Of note, patients CT incidentally found a dilated aortic root at 4.4 CM and an Echo is recommended to be repeated in 6-12 months.
Patient will follow up with Pulmonary office in 2-3 weeks.
Discharge Plan
-
Patient Disposition: Home (Routine Discharge)
Discharge Diagnosis/Procedures: Empyema requiring chest tubes, PE, anemia requiring blood, hyponatremia
Condition: Fair
Diet: Low Cholesterol
Activity: As tolerated
Bathing Restrictions: None
Referrals:
Yoshi Lemons MD [Active, Pulmonary Medicine] - in two to three weeks
Matilde Rivera DO [Family Provider, Family Practice] - in one week
Prescriptions:
New
Eliquis 5 mg Tablet
5 mg PO BID Qty: 60 2RF
Lactobac/Bifidobac [Visbiome]
1 cap PO DAILY Qty: 30 0RF
amoxicillin-pot clavulanate 875-125 mg tablet
1 tab PO Q12H Qty: 20 0RF
Continued
cetirizine 10 MG tablet
10 mg PO BID
lisinopril 10 MG tablet
10 mg PO DAILY
sertraline 25 MG tablet
25 mg PO DAILY
pantoprazole 40 MG tablet,delayed release (DR/EC)
40 mg PO BID Qty: 60 0RF
atorvastatin 20 mg Tablet
20 mg PO DAILY
Discharge Orders:
Discharge Patient (As Directed); Ordered 09/17/25
Ordered By: Fco Reeves
Discharge Date and Time
Print Language: CUBAN
--- NOTE | 2025-09-17 10:42 | CM ---
Addendum entered by Yadira Egan 09/17/25 13:10:
[employer] delivered portable oxygen tank to patient's room
Addendum entered by Yadira Egan 09/17/25 10:46:
Per request, coupon for Eliquis given to patient
Original Note:
Spoke with patient via phone; discharge plan discussed
Home Health agency options identified; preference is [facility]; referral sent via [facility]
Home Oxygen ordered; no agency preference; order and clinicals faxed to [facility]; Portable tank will be delivered to hospital
Plan: [facility]charge [facility]; and home oxygen w/ [employer]
[2025-09-17 12:32] LABS: Glucose - Point of Care 115 mg/dl (70-99)
--- NOTE | 2025-09-17 13:30 | PTCARENOTE ---
Patient transfused 1 unit of blood as ordered. Tolerated well. VS documented. No s/s of distress noted at this time. Plan of care ongoing.
--- NOTE | 2025-09-17 13:32 | PTCARENOTE ---
Patient's Home O2 delivered to pt room by [employer]. pt aware.
[2025-09-17] MEDS: FLUZONE (6 mos+) 2025-2026 FORMULA 0.5 ML IM (14:19)
== END 2025-09-17 16:03 | disposition home health service (06) | DRG 871 ==
LOC: 2 NORTH 22:18
PROVIDERS: Internal Medicine; Nurse Practitioner Family; Nurse Practitioner Primary Care; Radiology Diagnostic Radiology; Radiology Vascular & Interventional Radiology; Registered Nurse; Specialist; ADMITTING PHYSICIAN Hospitalist; ATTENDING PHYSICIAN Internal Medicine; CONSULT PHYSICIAN Internal Medicine Critical Care Medicine; CONSULT PHYSICIAN Specialist; CONSULT PHYSICIAN Student in an Organized Health Care Education/Training Program; EMERGENCY PHYSICIAN Student in an Organized Health Care Education/Training Program; FAMILY PHYSICIAN Family Medicine
PROC: 0W9930Z Drainage of Right Pleural Cavity with Drainage Device, Percutaneous Approach (ICD-10-PCS; 2025-09-06)
PROC: 3E0L317 Introduction of Other Thrombolytic into Pleural Cavity, Percutaneous Approach (ICD-10-PCS; 2025-09-07)
PROC: 5A09357 Assistance with Respiratory Ventilation, Less than 24 Consecutive Hours, Continuous Positive Airway Pressure (ICD-10-PCS; 2025-09-07)
PROC: 30233N1 Transfusion of Nonautologous Red Blood Cells into Peripheral Vein, Percutaneous Approach (ICD-10-PCS; 2025-09-14)
PROC: 3E02340 Introduction of Influenza Vaccine into Muscle, Percutaneous Approach (ICD-10-PCS; 2025-09-17)
DX: A40.8 Other streptococcal sepsis (principal); I26.99 Other pulmonary embolism without acute cor pulmonale; J86.9 Pyothorax without fistula; J96.01 Acute respiratory failure with hypoxia; J18.9 Pneumonia, unspecified organism; R57.8 Other shock; D62 Acute posthemorrhagic anemia; E22.2 Syndrome of inappropriate secretion of antidiuretic hormone; J90 Pleural effusion, not elsewhere classified; R65.20 Severe sepsis without septic shock; K21.9 Gastro-esophageal reflux disease without esophagitis; I10 Essential (primary) hypertension; E78.00 Pure hypercholesterolemia, unspecified; R00.0 Tachycardia, unspecified; F41.9 Anxiety disorder, unspecified; I77.810 Thoracic aortic ectasia; K76.0 Fatty (change of) liver, not elsewhere classified; E87.5 Hyperkalemia; E83.51 Hypocalcemia; E66.9 Obesity, unspecified; E88.810 Metabolic syndrome; N40.0 Benign prostatic hyperplasia without lower urinary tract symptoms; J45.20 Mild intermittent asthma, uncomplicated; K22.70 Barrett's esophagus without dysplasia; Z23 Encounter for immunization; Z68.33 Body mass index [BMI] 33.0-33.9, adult; Z87.11 Personal history of peptic ulcer disease; Z87.01 Personal history of pneumonia (recurrent); Z87.891 Personal history of nicotine dependence
CPT/HCPCS: 32557; 32561; 71045; 71250; 71260; 71275; 80048; 80053; 82088; 82150; 82570; 82784; 82787; 82805; 82945; 82962; 82977; 83036; 83605; 83615; 83735; 83880; 83935; 83986; 84100; 84155; 84157; 84244; 84300; 84478; 84484; 85014; 85018; 85025; 85027; 85610; 85730; 86850; 86900; 86901; 86920; 87015; 87040; 87070; 87102; 87116; 87205; 87206; 87389; 87449; 87641; 87899; 88112; 88305; 89051; 92526; 92610; 92612; 93306; 93970; 94640; 94644; 94660; 96365; 96366; 96367; 96375; 97116; 97163; 97167; 97530; 97535; 99152; 99153; 99291; C1729; C1769; J2997; P9016; P9047; Q9967